=== PATIENT | male | born 1970 | race Two or more races ===

== ENCOUNTER 2024-08-17 20:26 | Emergency (ER) | payer MEDICAID, OTHER ==
[~2024-08-17] VITALS: Ht 177.8 cm; Wt 147.1 kg
[2024-08-17 20:40] VITALS: BP 127/89; PULSE 72; RESP 14; O2SAT 98
--- NOTE | 2024-08-17 22:02 | ED.PDOC ---
HPI (NEURO) HPI Comments Pt arrived in ER due to head pressure x 3 days. Pt alert and oriented x 4/ Denies pain, N/V, or dizziness. pt states its " just pressure that wont go away" VSS. No distress present. Denies numbness, weakness, slurred speech, vision changes, worst headache of his life, or head injury. Chief Complaint: Headache Time Seen by MD: 20:54 Reviewed Notes: Nurses Notes, Medications, Allergies Information Source: Patient Mode of Arrival: Ambulatory Past Medical History PAST MEDICAL HISTORY: Denies Surgical History: Denies all surgeries Family History Family History: Reviewed,noncontributory to illness Social History Smoker: Non-Smoker Alcohol: Denies ETOH Use Drugs: Denies Drug Use Neurological: reports: headache Physical Exam Musculoskeletal : Apperance: Normal Lymphatic: No Adenopathy Was a procedure done? Was a procedure done?: No X-Ray, Labs, Meds, VS Vital Signs Date Time Temp Pulse Resp B/P (MAP) Pulse Ox O2 Delivery O2 Flow Rate FiO2 08/17/24 20:40 98.8 72 14 127/89 (102) 98 X-Ray, Labs, Meds, VS Comment LEFT WITHOUT BEING TRIAGED Departure 1 Departure Disposition: 07 LEFT WITHOUT BEING TRIAGED Condition: Stable Discharged With: Self I personally scribed for ER ([email or web address]) on 08/18/24 at 03:53. Electronically submitted by Harley Cleveland ([facility]). MAURA URBAN [employer]ER Aug 17, 2024 22:01 ER Aug 18, 2024 03:53
== END 2024-08-17 22:24 | disposition left against medical advice (07) ==
LOC: ER 20:26
DX: R51.9 Headache, unspecified (principal); Z53.21 Procedure and treatment not carried out due to patient leaving prior to being seen by health care provider

== ENCOUNTER 2024-08-19 11:15 | Inpatient (IN) | payer MEDICAID ==
[~2024-08-19] VITALS: Ht 177.8 cm; Wt 149.6 kg
--- NOTE | 2024-08-19 11:34 | ED.PDOC ---
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 Medications: No medications. Allergies: NKDA HPI: HPI: Poor Historian. 54-year-old male presents to emergency depart for evaluation of episodes of shortness of breath that wakes him up from his sleep in the last few days. He wakes up gasping for air. Patient has been using alcohol heavily the last six months most recently this morning. Patient does not go to the doctor. Denies any other acute symptoms. REVIEW OF SYSTEMS: CONSTITUTIONAL: Denies acute: fever, diaphoresis, chills, HEAD: Denies acute: headache, photophobia Eyes: Denies acute: Double vision, vision loss, eye pain, eye discharge. EARS: Denies acute: tinnitus, hearing loss, ear discharge, ear pain, THROAT: Denies acute: sore throat, swelling, difficulty swallowing , pain with swallowing, change in voice. NECK: Denies acute: neck pain, neck swelling, stiff neck. HEART: Denies acute : chest pain, palpitations, LUNGS: Denies acute: wheezing, cough, hemoptysis ABDOMEN: Denies acute: abdominal pain, Nausea, Vomiting, diarrhea, melena , hematemesis, hematochezia SKIN: Denies acute: rash, redness, lesions, itchiness. EXTREMITIES: Denies acute: calf pain, numbness, tingling, weakness, denies pain in extremity. Denies acute: Low back pain. Neuro: Denies acute: focal neurological deficit, motor or sensory focal neurological deficit, tremors, seizure like activity, confusion, dizziness, change in mental status, loss of bowel or bladder function, cauda equina like symptoms. : Denies acute: dysuria, hematuria, flank pain, increase in urinary frequency. PSYCH: Denies acute: hallucination, suicidal ideation, homicidal ideation. PHYSICAL EXAM: General: no acute distress, awake and alert. Head: normocephalic, atraumatic. Neck: supple, trachea is midline, no swelling. Throat: Normal phonation. Eyes:, no erythema, no purulent discharge, no proptosis, no icterus. Heart: regular rate, regular rhythm, no significant murmur appreciated. Lungs: no apparent respiratory distress, Able to speak in full sentences. No wheezing, no rhonchi, no crackles. No stridors Clear to auscultation bilaterally. Abdomen: non tender to palpation, non distended, soft, no guarding, no rebound, + bowel sounds. Obese Neuro: Awake, Alert, oriented to name, self, situation, follows commands GCS=15. Speech is normal. Skin: no petechia, no purpura, no cyanosis, non-pale, not jaundice. Lower extremities: --2/4 bilateral - Pitting edema no deformity, no focal swelling, no calf TTP. Makes eye contact. moves all four extremities. Face: no apparent facial droop. Ambulating in the ED independently. ED COURSE: Chief Complaint: Shortness of Breath Time Seen by MD: 11:31 Reviewed notes: Medications, Allergies Information Source: Patient Mode of Arrival: Ambulatory Was a procedure done? Was a procedure done?: No Differential Dx Differential Diagnosis: Other (DDx include ACS, unstable angina, anxiety, PE, pneumothroax, neoplasm, cardiac ischemia, COPD, asthma, CHF, pleural effusion, tobacco abuse, pneumonia, hypoxia, hypercapnia, anemia., infection/sepsis., pulmonary edema. Asthma, Cardiac tamponade, infection.) X-Ray, Labs, Meds, VS Vital Signs Date Time Temp Pulse Resp B/P (MAP) Pulse Ox O2 Delivery O2 Flow Rate FiO2 08/19/24 12:07 Room Air* 0 21 08/19/24 11:34 18 96 Room Air* 0 21 08/19/24 11:33 61 08/19/24 11:30 98.3 61 18 139/68 (91) 96 Lab Test 08/19/24 14:32 08/19/24 14:30 08/19/24 12:46 08/19/24 11:44 Range/Units Lactic Acid Level 2.3 *H 2.3 *H 0.4-2.0 mmol/L Troponin I High Sensitivity 4 5 5 </=54 ng/L Blood Gas Specimen Type Arterial Blood Gas Sample Site Right radial Blood Gas Patient Temperature 37.0 Arterial Blood Date Drawn [id number] Arterial Blood pH 7.473 H 7.350-7.450 Arterial Blood Partial Pressure CO2 40.9 35.0-48.0 mmHg Arterial Blood Partial Pressure O2 62.1 L 83.0-108.0 mmHg Arterial Blood HCO3 29.3 H 21.0-28.0 mmol/L Arterial Blood Oxygen Saturation 91.9 L 94.0-98.0 % Arterial Blood Base Excess 5.2 H -2.0-3.0 mmol/L Arterial Blood Oxyhemoglobin 90.5 L 94.0-98.0 % Arterial Blood Carboxyhemoglobin 1.1 0.5-1.5 % Arterial Blood Methemoglobin 0.4 0.0-1.5 % Justin Test Yes Blood Gas Total Hemoglobin 15.80 13.5-17.5 g/dL Blood Gas Modality Room air FiO2 % 21.0 White Blood Count 8.0 4.4-10.8 10^3/uL Red Blood Count 4.84 4.5-5.90 10^6/uL Hemoglobin 14.9 13.5-17.5 g/dL Hematocrit 43.7 41.0-53.0 % Mean Corpuscular Volume 90.1 80.0-100.0 fL Mean Corpuscular Hemoglobin 30.8 28.0-32.0 pg Mean Corpuscular Hemoglobin Concent 34.2 32.0-36.0 g/dL Red Cell Distribution Width 12.8 11.8-14.3 % Platelet Count 296 140-450 10^3/uL Mean Platelet Volume 7.5 6.9-10.8 fL Neutrophils (%) (Auto) 70.8 37.0-80.0 % Lymphocytes (%) (Auto) 21.6 10.0-50.0 % Monocytes (%) (Auto) 6.5 0.0-12.0 % Eosinophils (%) (Auto) 0.4 0.0-7.0 % Basophils (%) (Auto) 0.7 0.0-2.0 % Neutrophils # (Auto) 5.7 1.6-8.6 10 ^3/uL Lymphocytes # (Auto) 1.7 0.4-5.4 10 ^3/uL Monocytes # (Auto) 0.5 0-1.3 10 ^3/uL Eosinophils # (Auto) 0 0-0.8 10 ^3/uL Basophils # (Auto) 0.1 0-0.2 10 ^3/uL Nucleated Red Blood Cells 0.2 % D-Dimer, Quantitative 1.18 H 0.0-0.49 mg/L FEU Sodium Level 139 136-145 mmol/L Potassium Level 3.9 3.5-5.1 mmol/L Chloride Level 103 98-107 mmol/L Carbon Dioxide Level 28 20-31 mmol/L Anion Gap 8 5-15 Blood Urea Nitrogen < 5 L 9-23 mg/dL Creatinine 0.84 0.700-1.30 mg/dL Glomerular Filtration Rate Calc 102 >90 mL/min BUN/Creatinine Ratio 6.0 L 10.0-20.0 Serum Glucose 100 74-106 mg/dL Calcium Level 9.7 8.7-10.4 mg/dL Magnesium Level 1.9 1.6-2.6 mg/dL Total Bilirubin 0.8 0.2-1.0 mg/dL Aspartate Amino Transferase (AST) 34 13-40 U/L Alanine Aminotransferase (ALT) 26 7-40 U/L Alkaline Phosphatase 83 46-116 U/L B-Type Natriuretic Peptide 113.51 0-100 pg/mL Total Protein 7.7 5.7-8.2 g/dL Albumin 4.5 3.2-4.8 g/dL Plasma/Serum Blood Alcohol 71.0 H <10 mg/dL Current Medications Medications (Trade) Dose Ordered Sig/Johnnie Route Start Time Stop Time Status Last Admin Thiamine HCl 100 mg ONCE ONCE PO 08/19/24 11:45 08/19/24 11:46 DC 08/19/24 12:00 Sodium Chloride 1,000 ml @ 1,000 mls/hr Q1H ONCE IV 08/19/24 13:15 08/19/24 14:14 DC 08/19/24 13:15 Chest XR: [address] [address] Ph: [phone] DIAGNOSTIC IMAGING Diagnostic Imaging Report : [id number] Signed PATIENT: RAMIRO MITCHELL ACCT: [id number] UNIT: [id number] : 1970 LOC: ER ROOM / BED: / AGE / SEX: 54 / M ADM STATUS: REG ER SERVICE 1131 ORDERING PHYSICIAN: JANIA CURRY DO PROCEDURE(s): CXRP - CHEST PORTABLE REASON: sob ORDER NUMBER(s): [id number], ACCESSION NUMBER(s): [id number] EXAM: XR Chest, 1 View CLINICAL INDICATION: sob TECHNIQUE: Frontal view of the chest. COMPARISON: None FINDINGS: LUNGS AND PLEURAL SPACES: Unremarkable. No consolidation. No pneumothorax. HEART: Unremarkable. No cardiomegaly. MEDIASTINUM: Unremarkable. Normal mediastinal contour. BONES/JOINTS: Unremarkable. No acute fracture. OTHER FINDINGS: . None. IMPRESSION: No acute cardiopulmonary process. ATED BY: FAY GUTHRIE MD DICTATED DATE/TIME: 08/19/241220 SIGNED BY: FAY GUTHRIE MD SIGNED DATE/TIME: 08/19/241220 CC: [place] [id number] Ph: [phone] DIAGNOSTIC IMAGING Diagnostic Imaging Report : [id number] Signed PATIENT: AVANI HAM ACCT: [id number] UNIT: [id number] : 10/27/1962 LOC: ER ROOM / BED: / AGE / SEX: 61 / F ADM STATUS: REG ER SERVICE 1450 ORDERING PHYSICIAN: JANIA CURRY DO PROCEDURE(s): [place] - ANGIO HEAD/Neck REASON: MCDONNELL ORDER NUMBER(s): [id number], ACCESSION NUMBER(s): [id number] Exam: CT ANGIO HEAD/NECK INDICATION: MCDONNELL EXAM DATE: 08/19/2024 04:07 PM COMPARISON: None TECHNIQUE: CT head without contrast. CTA head, neckwith intravenous contrast. 3D image postprocessing was performed on a dedicated workstation and images were used for interpretation and reporting. RADIATION DOSE: Tracker: CTDIvol: 29.58 mGy, DLP: 1293.61 mGy*cm Angio: CTDIvol: 29.58 mGy, DLP: 1293.61 mGy*cm FINDINGS: No intracranial hemorrhage. No extra-axial fluid, mass, mass effect or midline shift. Ventricles are midline and normal in size. Balderrama-white differentiation maintained. Mastoids well pneumatized. Paranasal sinuses well pneumatized. The right common carotid artery demonstrates no high-grade stenosis. Right internal carotid artery demonstrates no high-grade stenosis. Right middle cerebral artery demonstrates no high-grade stenosis. The left common carotid artery demonstrates no high-grade stenosis. The left internal carotid artery demonstrates no high-grade stenosis. Left middle cerebral artery demonstrates no high-grade stenosis. The bilateral anterior cerebral arteries demonstrate no high-grade stenoses. Right vertebral artery demonstrates no high-grade stenosis. Basilar artery demonstrates no high-grade stenosis. Bilateral posterior cerebral arteries demonstrate no high-grade stenoses. Left vertebral artery demo nstrates no high-grade stenosis. 8 mm left upper lobe pulmonary nodule. IMPRESSION: 1. No evidence of hemodynamically significant cervical stenosis . 2. No intracranial hemorrhage. 3. 8 mm left upper lobe pulmonary nodule. Recommend follow-up per Fleischner society criteria.. ATED BY: LUIS FERNANDO BARKLEY MD DICTATED DATE/TIME: 08/19/24 1639 SIGNED BY: LUIS FERNANDO BARKLEY MD SIGNED DATE/TIME: 08/19/24 163 CC: Time of 1ST Reevaluation: 12:31 Reevaluation 1ST: Unchanged Patient Education/Counseling: Diagnosis, Treatment Family Education/Counseling: No Family Present Comments Patient presented with the above HPI.---dyspnea---workup was initiated. patient was found with the above mentioned diagnosis. the following medications were ordered: please refer to order lists of meds and tests obtained by myself Dr. Curry. Patient ED course and VS have been stabilized. Patient has been reassessed in the ED and remained in a stable condition. Pertinent incidental findings were discussed with the patient and/or family. Patient/family voices understanding and is agreeable with plan. Patient has been observed in the ED adequate length of time to insure improvement/stability. Escalation of care considered: Consideration of escalation to observation or admission Patient was ADMITTED to the medicine team for further evaluation and treatment of their presentation. All the reports of any imaging studies that were ordered by myself were reviewed by myself. Departure 1 Departure Time of Disposition: 15:18 Impression: Primary Impression: Dyspnea Additional Impressions: Hypoxemia Alcohol abuse Pulmonary nodule Mediastinal lymphadenopathy Disposition: ADMITTED INPATIENT Admit to: Tele Condition: Guarded Discharged With: Self Critical Care Note Critical Care Time?: No Heart Score Heart Score: Heart Score Response (Comments) Value History N/A 0 EKG N/A 0 Age N/A 0 Risk Factors N/A 0 Troponin N/A 0 Total 0 I personally scribed for JANIA CURRY DO ([email or web address]) on 08/19/24 at 11:34. Electronically submitted by Kee Bruce ([email or web address]). I personally scribed for JANIA CURRY DO ([email or web address]) on 08/19/24 at 12:30. Electronically submitted by Kee Bruce ([email or web address]). I personally scribed for JANIA CURRY DO ([email or web address]) on 08/19/24 at 13:39. Electronically submitted by Kee Bruce ([email or web address]). I personally scribed for JANIA CURRY DO ([email or web address]) on 08/19/24 at 16:50. Electronically submitted by Kee Bruce ([email or web address]). JANIA CURRY DO Aug 19, 2024 11:34
[2024-08-19] MEDS: THIAMINE HCL 100 MG TAB PO ONE (12:00)
[2024-08-19 12:22] LABS: Basophils # (auto) 0.1 10 ^3/uL (0-0.2); Basophils % (auto) 0.7 % (0.0-2.0); Eosinophils # (auto) 0 10 ^3/uL (0-0.8); Eosinophils % (auto) 0.4 % (0.0-7.0); Hematocrit 43.7 % (41.0-53.0); Hemoglobin 14.9 g/dL (13.5-17.5); Lymphocytes # (auto) 1.7 10 ^3/uL (0.4-5.4); Lymphocytes % (auto) 21.6 % (10.0-50.0); Mean Corpuscular Hemoglobin 30.8 pg (28.0-32.0); Mean Corpuscular Hgb Conc. 34.2 g/dL (32.0-36.0); Mean Corpuscular Volume 90.1 fL (80.0-100.0); Monocytes # (auto) 0.5 10 ^3/uL (0-1.3); Monocytes % (auto) 6.5 % (0.0-12.0); Neutrophils # (auto) 5.7 10 ^3/uL (1.6-8.6); Neutrophils % (auto) 70.8 % (37.0-80.0); Nucleated Red Blood Cells % 0.2 %; Platelet Count (auto) 296 10^3/uL (140-450); Red Blood Cells 4.84 10^6/uL (4.5-5.90); Red Cell Distribution Width 12.8 % (11.8-14.3)
--- NOTE | 2024-08-19 12:24 | DVH ---
EXAM: XR Chest, 1 View CLINICAL INDICATION: sob TECHNIQUE: Frontal view of the chest. COMPARISON: None FINDINGS: LUNGS AND PLEURAL SPACES: Unremarkable. No consolidation. No pneumothorax. HEART: Unremarkable. No cardiomegaly. MEDIASTINUM: Unremarkable. Normal mediastinal contour. BONES/JOINTS: Unremarkable. No acute fracture. OTHER FINDINGS: . None. IMPRESSION: No acute cardiopulmonary process.
[2024-08-19 12:48] LABS: Alanine Aminotransferase 26 U/L (7-40); Albumin 4.5 g/dL (3.2-4.8); Alkaline Phosphatase 83 U/L (46-116); Anion Gap 8 (5-15); Aspartate Aminotransferase 34 U/L (13-40); Calcium 9.7 mg/dL (8.7-10.4); Carbon Dioxide 28 mmol/L (20-31); Chloride 103 mmol/L (98-107); Glucose 100 mg/dL (74-106); Magnesium 1.9 mg/dL (1.6-2.6); Potassium 3.9 mmol/L (3.5-5.1); Sodium 139 mmol/L (136-145)
[2024-08-19 12:49] LABS: Bilirubin, Total 0.8 mg/dL (0.2-1.0); Blood Urea Nitrogen < 5 mg/dL (9-23); Total Protein 7.7 g/dL (5.7-8.2)
[2024-08-19 13:00] LABS: Lactic Acid w/Reflex 2.3 mmol/L (0.4-2.0)
[2024-08-19] MEDS: SODIUM CHLORIDE 0.9% 1,000 ML IV ONE ×2 (13:15→17:00)
[2024-08-19 14:33] LABS: Base Excess 5.2 mmol/L (-2.0-3.0)
[2024-08-19] MEDS: IOHEXOL 350 MG/ML 100ML IJ ONE (15:31)
--- NOTE | 2024-08-19 16:23 | DVH ---
Indication: sob, elevated D dimer Technique: CT axial images of the chest are obtained with intravenous contrast per CT angiogram prot ocol. Coronal and sagittal reformats were obtained. Radiation Dose Information: CTDI volume is 29.2 mGy. Dose-length product is 1060.67 mGy*cm Comparison: None FINDINGS: No filling defect within the main left right pulmonary arteries. Segmental and subsegmental branches are suboptimally characterize. Trachea patent. No pneumothorax. Right upper lobe pulmonary soft tissue nodule measuring 1.7 cm. 5 mm right upper lobe calcified nodul e. Bilateral pulmonary ground-glass opacities. Heart normal in size. Right hilar lymph node measuring 1.9 cm. Subcarinal lymph node measuring 1.5 cm . No supraclavicular or axillary lymphadenopathy. No aggressive osseous process. [id number] thoracic degenerative disc disease. 1 cm right adrenal nodule, Hounsfield units of 21 IMPRESSION: 1. No evidence for large pulmonary embolism. 2. Right upper lobe pulmonary nodule measuring 1.7 cm. Recommend follow-up per fleischner society cr iteria. 3. Mediastinal/hilar lymphadenopathy. 4. Pulmonary ground-glass opacities/ attenuation which could be secondary to edema, hypoventilation, infection, inflammatory etiologies. 5. Indeterminate right adrenal nodule which can be further characterized with MRI abdomen, adrenal ma ss protocol in the nonemergent setting. 6. Other findings as described.
[2024-08-19] MEDS ORDERED: IBUP-1455 PO (16:59)
[2024-08-19] MEDS ORDERED: TIZA4CAP14 PO (16:59)
[2024-08-19] MEDS ORDERED: ACETAMINOPHEN 325 MG TAB PO PRN (17:00)
[2024-08-19] MEDS ORDERED: TIZANIDINE HYDROCHLORIDE 4 MG PO PRN (17:00)
--- NOTE | 2024-08-19 17:14 | DVHHP2 ---
History of Present Illness Reason for Visit: Shortness of breaths rule out PE History of Present Illness This is a 54-year-old male with history of giantism who presents to ED with chief complaint of shortness of breath at with no associated symptoms times 3-4 days ago. Upon evaluation, patient denied recent injury or trauma to his chest. He did comment of having similar symptoms in the past. He admits to heavy alcohol drinking vodka daily, last drink this morning. The patient is not short of breath at this moment and is not on oxygen. He is concerned about his shortness of breath and would like to be further evaluated and treated. The patient will be admitted under hospitalist care to the medical-surgical unit. The patient denies fever, chills, headache, dizziness, palpitation, chest pain, nausea, vomiting, abdominal pain, diarrhea, constipation and other associated symptoms. The plan has been discussed with the patient in which all questions concerns have been addressed. Past Medical History Gigantism Past Surgical History Craniotomy Left leg surgery Family History: None Smoke: No ALCOHOL: none Drugs: None Lives: with Family Domestic Violence: Neg Review of Systems Respiratory: Shortness of breath Allergies: Coded Allergies: NO KNOWN ALLERGIES (Unverified , 08/17/24) Medications Current Medications Medications Dose Ordered Sig/Johnnie Route Start Time Stop Time Status Last Admin Dose Admin Albuterol 2.5 mg Q2HPRN PRN NEB 08/19/24 17:00 UNV Sodium Chloride 1,000 ml @ 60 mls/hr [id number] IV 08/19/24 17:00 UNV Enoxaparin Sodium 40 mg DAILY SC 08/20/24 10:00 UNV Acetaminophen 650 mg Q6HP PRN PO 08/19/24 17:00 UNV Lorazepam 1 mg Q2HPRN PRN IV 08/19/24 17:00 UNV Exam Vital Signs Vital Signs Date Time Temp Pulse Resp B/P (MAP) Pulse Ox O2 Delivery O2 Flow Rate FiO2 08/19/24 12:07 Room Air* 0 21 08/19/24 11:34 18 96 08/19/24 11:33 61 08/19/24 11:30 98.3 139/68 (91) General Appearance: Alert, Oriented X3, Cooperative, No acute distress HEENT: Atraumatic, PERRLA, Mucous membr. moist/pink Respiratory: Clear to auscultation, Normal air movement Cardiovascular: Normal S1, Normal S2, No murmurs Abdominal: Normal bowel sounds, Soft, No tenderness, No hepatospenomegaly, No masses Extremities: No clubbing, No cyanosis, No edema, Normal pulses, No tenderness/swelling Skin: No rashes, No breakdown Neuro: Normal gait, Normal speech, Strength at 5/5 X4 ext, Normal tone, Sensation intact, Cranial nerves 3-12 NL, Reflexes 2+ Psych/Mental Status: Mental status NL Labs/Xrays Labs Test 08/19/24 14:32 08/19/24 14:30 08/19/24 11:44 Range/Units Lactic Acid Level 2.3 *H 0.4-2.0 mmol/L Troponin I High Sensitivity 4 </=54 ng/L Blood Gas Specimen Type Arterial Blood Gas Sample Site Right radial Blood Gas Patient Temperature 37.0 Arterial Blood Date Drawn [id number] Arterial Blood pH 7.473 H 7.350-7.450 Arterial Blood Partial Pressure CO2 40.9 35.0-48.0 mmHg Arterial Blood Partial Pressure O2 62.1 L 83.0-108.0 mmHg Arterial Blood HCO3 29.3 H 21.0-28.0 mmol/L Arterial Blood Oxygen Saturation 91.9 L 94.0-98.0 % Arterial Blood Base Excess 5.2 H -2.0-3.0 mmol/L Arterial Blood Oxyhemoglobin 90.5 L 94.0-98.0 % Arterial Blood Carboxyhemoglobin 1.1 0.5-1.5 % Arterial Blood Methemoglobin 0.4 0.0-1.5 % Justin Test Yes Blood Gas Total Hemoglobin 15.80 13.5-17.5 g/dL Blood Gas Modality Room air FiO2 % 21.0 White Blood Count 8.0 4.4-10.8 10^3/uL Red Blood Count 4.84 4.5-5.90 10^6/uL Hemoglobin 14.9 13.5-17.5 g/dL Hematocrit 43.7 41.0-53.0 % Mean Corpuscular Volume 90.1 80.0-100.0 fL Mean Corpuscular Hemoglobin 30.8 28.0-32.0 pg Mean Corpuscular Hemoglobin Concent 34.2 32.0-36.0 g/dL Red Cell Distribution Width 12.8 11.8-14.3 % Platelet Count 296 140-450 10^3/uL Mean Platelet Volume 7.5 6.9-10.8 fL Neutrophils (%) (Auto) 70.8 37.0-80.0 % Lymphocytes (%) (Auto) 21.6 10.0-50.0 % Monocytes (%) (Auto) 6.5 0.0-12.0 % Eosinophils (%) (Auto) 0.4 0.0-7.0 % Basophils (%) (Auto) 0.7 0.0-2.0 % Neutrophils # (Auto) 5.7 1.6-8.6 10 ^3/uL Lymphocytes # (Auto) 1.7 0.4-5.4 10 ^3/uL Monocytes # (Auto) 0.5 0-1.3 10 ^3/uL Eosinophils # (Auto) 0 0-0.8 10 ^3/uL Basophils # (Auto) 0.1 0-0.2 10 ^3/uL Nucleated Red Blood Cells 0.2 % D-Dimer, Quantitative 1.18 H 0.0-0.49 mg/L FEU Sodium Level 139 136-145 mmol/L Potassium Level 3.9 3.5-5.1 mmol/L Chloride Level 103 98-107 mmol/L Carbon Dioxide Level 28 20-31 mmol/L Anion Gap 8 5-15 Blood Urea Nitrogen < 5 L 9-23 mg/dL Creatinine 0.84 0.700-1.30 mg/dL Glomerular Filtration Rate Calc 102 >90 mL/min BUN/Creatinine Ratio 6.0 L 10.0-20.0 Serum Glucose 100 74-106 mg/dL Calcium Level 9.7 8.7-10.4 mg/dL Magnesium Level 1.9 1.6-2.6 mg/dL Total Bilirubin 0.8 0.2-1.0 mg/dL Aspartate Amino Transferase (AST) 34 13-40 U/L Alanine Aminotransferase (ALT) 26 7-40 U/L Alkaline Phosphatase 83 46-116 U/L B-Type Natriuretic Peptide 113.51 0-100 pg/mL Total Protein 7.7 5.7-8.2 g/dL Albumin 4.5 3.2-4.8 g/dL Plasma/Serum Blood Alcohol 71.0 H <10 mg/dL ORDERING PHYSICIAN: JANIA CURRY DO PROCEDURE(s): CTACH - CT ANGIO CHEST CONTRAST REASON: sob, elevated D dimer ORDER NUMBER(s): [id number], ACCESSION NUMBER(s): [id number] Indication: sob, elevated D dimer Technique: CT axial images of the chest are obtained with intravenous contrast per CT angiogram protocol. Coronal and sagittal reformats were obtained. Radiation Dose Information: CTDI volume is 29.2 mGy. Dose-length product is 1060.67 mGy*cm Comparison: None FINDINGS: No filling defect within the main left right pulmonary arteries. Segmental and subsegmental branches are suboptimally characterize. Trachea patent. No pneumothorax. Right upper lobe pulmonary soft tissue nodule measuring 1.7 cm. 5 mm right upper lobe calcified nodule. Bilateral pulmonary ground-glass opacities. Heart normal in size. Right hilar lymph node measuring 1.9 cm. Subcarinal lymph node measuring 1.5 cm. No supraclavicular or axillary lymphadenopathy. No aggressive osseous process. [id number] thoracic degenerative disc disease. 1 cm right adrenal nodule, Hounsfield units of 21 IMPRESSION: 1. No evidence for large pulmonary embolism. 2. Right upper lobe pulmonary nodule measuring 1.7 cm. Recommend follow-up per fleischner society criteria. 3. Mediastinal/hilar lymphadenopathy. 4. Pulmonary ground-glass opacities/ attenuation which could be secondary to edema, hypoventilation, infection, inflammatory etiologies. 5. Indeterminate right adrenal nodule which can be further characterized with MRI abdomen, adrenal mass protocol in the nonemergent setting. 6. Other findings as described. ATED BY: LUIS FERNANDO BARKLEY MD DICTATED DATE/TIME: 08/19/24 162 SIGNED BY: LUIS FERNANDO BARKLEY MD SIGNED DATE/TIME: 08/19/24 162 CC: ORDERING PHYSICIAN: JANIA CURRY DO PROCEDURE(s): CXRP - CHEST PORTABLE REASON: sob ORDER NUMBER(s): [id number], ACCESSION NUMBER(s): [id number] EXAM: XR Chest, 1 View CLINICAL INDICATION: sob TECHNIQUE: Frontal view of the chest. COMPARISON: None FINDINGS: LUNGS AND PLEURAL SPACES: Unremarkable. No consolidation. No pneumothorax. HEART: Unremarkable. No cardiomegaly. MEDIASTINUM: Unremarkable. Normal mediastinal contour. BONES/JOINTS: Unremarkable. No acute fracture. OTHER FINDINGS: . None. IMPRESSION: No acute cardiopulmonary process. ATED BY: FAY GUTHRIE MD DICTATED DATE/TIME: 08/19/241220 SIGNED BY: FAY GUTHRIE MD SIGNED DATE/TIME: 08/19/241220 CC: Assessment/Plan Assessment/Plan Shortness of breaths rule out PE---patient with chief complaint of shortness of breaths with no associated symptoms times 3-4 days No recent injury or trauma to chest Heavy alcohol drink vodka daily Currently denies shortness of breaths and no O2 Admit to medical-surgical unit Reviewed CBC which is normal Cardiac enzyme negative x3 Alcohol level 71.0 Lactic acid 2.3 D-dimer elevated CT chest pending Start Lovenox now Albuterol q.2h p.r.n. shortness of breath IV hydration Alcohol intoxication Thiamine p.o. given in the ER IV banana bag now 2 L normal saline now CIWA protocol Ativan as needed ? DVT Order bilateral lower extremity ultrasound pending Reconcile home meds DVT prophylaxis PUD prophylaxis not indicated no history of GERD Discussed plan of care with the patient in which all questions concerns have been addressed Plan discussed with: Patient My Orders Orders - BASIL METCALF [employer] Procedure Category Date Status Time Communication Order ORDERS 08/19/24 Transmitted 16:55 Albuterol Medneb PHA 08/19/24 Logged (Ventolin Medneb) 17:00 Admit ADMIT 08/19/24 Transmitted 16:55 2 Gm Sodium Diet DIET 08/19/24 Transmitted Dinner Sodium Chloride 0.9% PHA 08/19/24 Logged 17:00 Enoxaparin Sodium PHA 08/20/24 Logged (Lovenox) 10:00 Complete Blood Count LAB 08/20/24 Verified 04:00 Comprehensive LAB 08/20/24 Verified Metabolic Panel 04:00 Condition: Fair FRANCIA 08/19/24 In Process 16:55 Acetaminophen Tablet PHA 08/19/24 Logged (Tylenol Tablet) 17:00 Bedrest With Bathroom FRANCIA 08/19/24 In Process Privileg 16:55 Bilat Lower Dvt US 08/19/24 Logged 16:55 Sodium Chloride 0.9% PHA 08/19/24 Logged 17:00 Lorazepam 2mg/Ml Inj PHA 08/19/24 Logged (Ativan Inj) 17:00 Etoh Withdrawal FRANCIA 08/19/24 In Process Assessment 16:58 Etoh Withdrawal FRANCIA 08/19/24 In Process Assessment 16:58 Lactic Acid W/ Reflex LAB 08/19/24 Logged Order 20:00 (Nf) Tizanidine Hcl PHA 08/19/24 Verified (Tizanidine Hydrochl 17:00 Date of Service: Aug 19, 2024 Billing Provider: BASIL METCALF Common Visit Codes: [id number] INP/OBS CARE (HIGH) BASIL METCALF Aug 19, 2024 17:14
[2024-08-19 17:52] VITALS: BP 139/68; PULSE 61; RESP 18; O2SAT 96
--- NOTE | 2024-08-19 18:11 | DVH ---
Bilateral lower extremity venous duplex Clinical History: r/o dvt Comparison: None Technique: Duplex Doppler evaluation of the deep venous systems of both lower extremities from the common femora l veins to the popliteal veins including color Doppler and spectral/pulsed waveform analysis was perf ormed. Findings: RIGHT SIDE: The common femoral vein demonstrates appropriate compressibility and waveform variability. There is compressibility/patency of the great saphenous vein at the proximal thigh. The femoral vein demonstrates appropriate compressibility and waveform variability. The deep femoral vein demonstrates appropriate compressibility and waveform variability. The popliteal vein demonstrates appropriate compressibility and waveform variability. There is normal compressibility at the tibioperoneal trunk. LEFT SIDE: The common femoral vein demonstrates appropriate compressibility and waveform variability. There is compressibility/patency of the great saphenous vein at the proximal thigh. The femoral vein demonstrates appropriate compressibility and waveform variability. The deep femoral vein demonstrates appropriate compressibility and waveform variability. The popliteal vein demonstrates appropriate compressibility and waveform variability. There is normal compressibility at the tibioperoneal trunk. Impression: No right or left femoropopliteal venous thrombosis.
[2024-08-19 18:23] VITALS: PULSE 73; RESP 18; O2SAT 96
[2024-08-19] MEDS: ALBUTEROL SULF 2.5 MG/0.5ML(0.5%) NEB SOLN NEB PRN (18:26)
[2024-08-19 18:32] VITALS: PULSE 71; RESP 18; O2SAT 100
[2024-08-19] MEDS: SODIUM CHLORIDE 0.9% 1,000 ML IV SCH (19:55)
[2024-08-19 22:16] VITALS: BP 116/79; PULSE 57; RESP 18; TEMP 98.4; O2SAT 94
[2024-08-20] VITALS (10 sets, daily range): BP systolic 127–147; BP diastolic 77–99; PULSE 62–78; RESP 17–22; TEMP 98–98.6; O2SAT 92–99
[2024-08-20 02:17] LABS: Urine Bacteria None Seen /hpf (None Seen)
[2024-08-20 02:43] LABS: Urine Blood Negative /uL (Negative); Urine Clarity Clear (Clear); Urine Color Light-Yellow (Yellow); Urine Protein, UAD Negative (Negative); Urine Specific Gravity 1.019 (1.001-1.035); Urine Squamous Epithelial Cell None Seen /hpf (<5); Urine Urobilinogen 3 mg/dL (Negative); Urine WBC < 1 /HPF (0-3)
[2024-08-20 05:53] LABS: Basophils # (auto) 0.1 10 ^3/uL (0-0.2); Basophils % (auto) 0.7 % (0.0-2.0); Eosinophils # (auto) 0.1 10 ^3/uL (0-0.8); Eosinophils % (auto) 1.8 % (0.0-7.0); Hematocrit 42.3 % (41.0-53.0); Hemoglobin 14.4 g/dL (13.5-17.5); Lymphocytes # (auto) 1.7 10 ^3/uL (0.4-5.4); Lymphocytes % (auto) 25.9 % (10.0-50.0); Mean Corpuscular Hemoglobin 31.3 pg (28.0-32.0); Mean Corpuscular Hgb Conc. 34.1 g/dL (32.0-36.0); Mean Corpuscular Volume 91.9 fL (80.0-100.0); Monocytes # (auto) 0.4 10 ^3/uL (0-1.3); Monocytes % (auto) 5.7 % (0.0-12.0); Neutrophils # (auto) 4.4 10 ^3/uL (1.6-8.6); Neutrophils % (auto) 65.9 % (37.0-80.0); Nucleated Red Blood Cells % 0.1 %; Platelet Count (auto) 257 10^3/uL (140-450); Red Cell Distribution Width 13.1 % (11.8-14.3); White Blood Cell 6.7 10^3/uL (4.4-10.8)
[2024-08-20 06:06] LABS: Alanine Aminotransferase 23 U/L (7-40); Albumin 4.2 g/dL (3.2-4.8); Alkaline Phosphatase 73 U/L (46-116); Anion Gap 8 (5-15); Aspartate Aminotransferase 29 U/L (13-40); BUN/Creatinine Ratio 7.9 (10.0-20.0); Bilirubin, Total 1.1 mg/dL (0.2-1.0); Calcium 9.9 mg/dL (8.7-10.4); Carbon Dioxide 29 mmol/L (20-31); Chloride 104 mmol/L (98-107); Glucose 103 mg/dL (74-106); Potassium 4.7 mmol/L (3.5-5.1); Sodium 141 mmol/L (136-145)
[2024-08-20 06:09] LABS: Blood Urea Nitrogen 6 mg/dL (9-23)
[2024-08-20] MEDS: ENOXAPARIN SOD 40 MG/0.4 ML SYRINGE SC SCH (09:28)
[2024-08-20] MEDS: LORazepam 2MG/ML-1ML VIAL IV PRN (09:39)
--- NOTE | 2024-08-20 16:48 | ECG ---
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
[2024-08-20] MEDS: chlordiazePOXIDE HCL 5 MG CAP PO PRN (18:41)
--- NOTE | 2024-08-20 18:45 | DVHINCON2 ---
Date of service: Aug 20, [address] Young Reason for Consultation Hypoxia and pulmonary nodule History of Present Illness A 54-year-old man with past medical history of gigantism who presented to ED on 08/19/24 with chief complaint of shortness of breath x3-4 days. Upon evaluation, patient denied recent injury or trauma to his chest. He did admit to having similar symptoms in the past. Pt admitted to heavy alcohol use - drinking vodka daily, last drink morning of presentation. He denied fever, chills, headache, dizziness, palpitation, chest pain, N/V/D or other associated symptoms. Patient was admitted for further care and pulmonary consultation is requested for evaluation and management d/t hypoxia and pulmonary nodule Review of Systems: 14-point review of systems negative unless otherwise noted above. Past Medical History: Gigantism Past Surgical History: Craniotomy, left leg surgery Medications: Reviewed. Allergies: No known drug allergies. Family History: No family history of premature CAD. No family history of lung disorders. Social History: Nonsmoker. No alcohol or illicit drug use. Family History: Patient reports no known family medical history. Allergies: Coded Allergies: NO KNOWN ALLERGIES (Unverified , 08/17/24) Home Meds Reported Medications Tizanidine HCl (Tizanidine Hydrochloride) 4 Mg Cap, 1 CAP PO DAILYPRN PRN 08/19/24 Ibuprofen Micronized (Ibuprofen) 800 Mg Tab, 1 TAB PO BIDPRN PRN 08/19/24 Current Medications Current Medications Medications (Trade) Dose Ordered Sig/Johnnie Route PRN Reason Start Time Stop Time Status Last Admin Enoxaparin Sodium (Lovenox) 40 mg DAILY SC 08/20/24 10:00 08/20/24 09:28 Chlordiazepoxide HCl (Librium Capsule) 10 mg Q6HPRN PRN PO etoh withdrawl symptom/Anxiety 08/20/24 17:00 08/20/24 18:41 Vital Signs Vital Signs Date Time Temp Pulse Resp B/P (MAP) Pulse Ox O2 Delivery O2 Flow Rate FiO2 08/20/24 17:00 98.0 63 20 147/85 (105) 94 98.0 08/20/24 10:00 Room Air* 0 21 Physical Exam Gen.: Patient lying in bed in no apparent distress. On supplemental oxygen. Head: Normocephalic, atraumatic. Eyes: EOMI/PERRLA. Ears: Normal hearing. Normal anatomy. Neck/trachea: Trachea midline, supple. Nose: Normal external anatomy. Mouth: Moist mucous membranes. Chest: Decreased air entry bilaterally. No wheezing or rhonchi. Cardiovascular: Positive S1, positive S2. Regular rate and rhythm. Abdomen: Positive bowel sounds in all 4 quadrants. Soft, non-tender, non-d istended. : Deferred. Rectal: Deferred. Skin: Warm, dry. Intact. Extremities: 2+ radial pulses bilaterally. No lower extremity edema. Neuro: Awake, alert, oriented x3. No gross motor or sensory deficits. Cranial nerves II through XII intact. Gait not assessed. Labs/Diagnostic Data Labs Test 08/20/24 05:15 08/20/24 01:45 08/19/24 19:55 08/19/24 14:32 Range/Units White Blood Count 6.7 4.4-10.8 10^3/uL Red Blood Count 4.60 4.5-5.90 10^6/uL Hemoglobin 14.4 13.5-17.5 g/dL Hematocrit 42.3 41.0-53.0 % Mean Corpuscular Volume 91.9 80.0-100.0 fL Mean Corpuscular Hemoglobin 31.3 28.0-32.0 pg Mean Corpuscular Hemoglobin Concent 34.1 32.0-36.0 g/dL Red Cell Distribution Width 13.1 11.8-14.3 % Platelet Count 257 140-450 10^3/uL Mean Platelet Volume 7.7 6.9-10.8 fL Neutrophils (%) (Auto) 65.9 37.0-80.0 % Lymphocytes (%) (Auto) 25.9 10.0-50.0 % Monocytes (%) (Auto) 5.7 0.0-12.0 % Eosinophils (%) (Auto) 1.8 0.0-7.0 % Basophils (%) (Auto) 0.7 0.0-2.0 % Neutrophils # (Auto) 4.4 1.6-8.6 10 ^3/uL Lymphocytes # (Auto) 1.7 0.4-5.4 10 ^3/uL Monocytes # (Auto) 0.4 0-1.3 10 ^3/uL Eosinophils # (Auto) 0.1 0-0.8 10 ^3/uL Basophils # (Auto) 0.1 0-0.2 10 ^3/uL Nucleated Red Blood Cells 0.1 % Sodium Level 141 136-145 mmol/L Potassium Level 4.7 3.5-5.1 mmol/L Chloride Level 104 98-107 mmol/L Carbon Dioxide Level 29 20-31 mmol/L Anion Gap 8 5-15 Blood Urea Nitrogen 6 L 9-23 mg/dL Creatinine 0.76 0.700-1.30 mg/dL Glomerular Filtration Rate Calc 105 >90 mL/min BUN/Creatinine Ratio 7.9 L 10.0-20.0 Serum Glucose 103 74-106 mg/dL Calcium Level 9.9 8.7-10.4 mg/dL Total Bilirubin 1.1 H 0.2-1.0 mg/dL Aspartate Amino Transferase (AST) 29 13-40 U/L Alanine Aminotransferase (ALT) 23 7-40 U/L Alkaline Phosphatase 73 46-116 U/L Total Protein 7.0 5.7-8.2 g/dL Albumin 4.2 3.2-4.8 g/dL Urine Color Light-yellow Yellow Urine Clarity Clear Clear Urine pH 7.0 5.0-9.0 Urine Specific [place] 1.019 1.001-1.035 Urine Protein Negative Negative Urine Ketones Negative Negative Urine Blood Negative Negative /uL Urine Nitrite Negative Negative Urine Bilirubin Negative Negative Urine Urobilinogen 3 H Negative mg/dL Urine Leukocyte Esterase Negative Negative /uL Urine RBC 1 0 - 3 /hpf Urine Microscopic WBC < 1 0-3 /HPF Urine Squamous Epithelial Cells None seen <5 /hpf Urine Bacteria None seen None Seen /hpf Urine Glucose Normal Normal mg/dL Lactic Acid Level 1.4 0.4-2.0 mmol/L Troponin I High Sensitivity 4 </=54 ng/L Test 08/19/24 14:30 08/19/24 11:44 Range/Units Blood Gas Specimen Type Arterial Blood Gas Sample Site Right radial Blood Gas Patient Temperature 37.0 Arterial Blood Date Drawn [id number] Arterial Blood pH 7.473 H 7.350-7.450 Arterial Blood Partial Pressure CO2 40.9 35.0-48.0 mmHg Arterial Blood Partial Pressure O2 62.1 L 83.0-108.0 mmHg Arterial Blood HCO3 29.3 H 21.0-28.0 mmol/L Arterial Blood Oxygen Saturation 91.9 L 94.0-98.0 % Arterial Blood Base Excess 5.2 H -2.0-3.0 mmol/L Arterial Blood Oxyhemoglobin 90.5 L 94.0-98.0 % Arterial Blood Carboxyhemoglobin 1.1 0.5-1.5 % Arterial Blood Methemoglobin 0.4 0.0-1.5 % Justin Test Yes Blood Gas Total Hemoglobin 15.80 13.5-17.5 g/dL Blood Gas Modality Room air FiO2 % 21.0 D-Dimer, Quantitative 1.18 H 0.0-0.49 mg/L FEU Magnesium Level 1.9 1.6-2.6 mg/dL B-Type Natriuretic Peptide 113.51 0-100 pg/mL Plasma/Serum Blood Alcohol 71.0 H <10 mg/dL Assessment Impression: Hypoxia, resolved Mediastinal/hilar lymphadenopathy GGO on imaging Pulmonary nodule, RUL Atelectasis Lactic acidosis, resolved Morbid obesity, BMI 46.5 Plan: CT chest shows no acute PE. RUL Pulmonary nodule of 1.7 cm. Ground-glass opacities Recommend CT-guided bx as it was in periphery. Consult IR to assess for inability of CT-guided bx ABG reviewed, notable for alkalemia Supplemental oxygen Titrate to keep O2 sats above 92%. Bronchodilators as needed. Monitor renal function. Monitor electrolytes. Supplement as necessary. Monitor ins and outs. Recommend outpatient sleep study - several risk factors for [place]. Monitor for alcohol withdrawal. Diet and lifestyle modifications for weight reduction Morbid Obesity - complicates all care DVT prophylaxis. Prognosis: Poor given patient's multiple co-morbidities. Rest of plan per hospitalist and other consultants. Thank you Dr Young for allowing me to participate in this patient's care. Further recommendations will depend on the patient's clinical course. Please do not hesitate to contact me if you have any questions or concerns. This medical document was created using an electronic medical record system with [employer] system. Although these documentations are being carefully reviewed, there may still be some phonetic and typographical changes. The errors are purely typographical, due to imperfection on the software program, and do not reflect any compromise in the patient's medical care. Plan discussed with: Patient, Other (CHEY Zepeda/ALYSA Soto/) NATO WINCHESTER MD Aug 20, 2024 18:45
--- NOTE | 2024-08-20 19:21 | DVHPN2 ---
Subjective denies any chest pain/has shortness of breath for month/no fever/chills Changes from previous H/P or p: No Changes Respiratory: Shortness of breath Objective Vitals Vital Signs Date Time Temp Pulse Resp B/P (MAP) Pulse Ox O2 Delivery O2 Flow Rate FiO2 08/20/24 18:40 93 Room Air 0.0 08/20/24 18:40 21 08/20/24 17:00 98.0 63 20 147/85 (105) 98.0 Intake/Output Intake and Output 08/20/24 07:00 Intake Total 400 ml Balance 400 ml Intake Oral 400 ml # Voids 2 General Appearance: Alert, Oriented X3, Cooperative, No acute distress Lungs: Clear to auscultation Cardiovascular: Regular rate, Normal S1, Normal S2 Abdomen: Normal bowel sounds, Soft, No tenderness, No hepatospenomegaly Extremities: No edema Neuro: Normal gait, Normal speech, Strength at 5/5 X4 ext, Normal tone, S ensation intact, Cranial nerves 3-12 NL Psych/Mental Status: Mental status NL, Mood NL Medications Current Medications Medications Dose Ordered Sig/Johnnie Route Start Time Stop Time Status Last Admin Dose Admin Albuterol 2.5 mg Q2HPRN PRN NEB 08/19/24 17:00 08/20/24 07:05 2.5 MG Sodium Chloride 1,000 ml @ 60 mls/hr [id number] IV 08/19/24 17:00 08/20/24 09:35 60 MLS/HR Enoxaparin Sodium 40 mg DAILY SC 08/20/24 10:00 08/20/24 09:28 40 MG Acetaminophen 650 mg Q6HP PRN PO 08/19/24 17:00 Patient Own Medication 1 cap DAILYPRN PRN PO 08/19/24 17:00 Chlordiazepoxide HCl 10 mg Q6HPRN PRN PO 08/20/24 17:00 08/20/24 18:41 10 MG Laboratory Results Laboratory Tests 08/20/24 05:15 Chemistry Test 08/20/24 05:15 Albumin 4.2 g/dL (3.2-4.8) Calcium Level 9.9 mg/dL (8.7-10.4) Total Protein 7.0 g/dL (5.7-8.2) LFT Test 08/20/24 05:15 Alanine Aminotransferase (ALT) 23 U/L (7-40) Alkaline Phosphatase 73 U/L (46-116) Aspartate Amino Transferase (AST) 29 U/L (13-40) Total Bilirubin 1.1 mg/dL (0.2-1.0) H Urinalysis Test 08/20/24 01:45 Urine Color Light-yellow (Yellow) Urine Clarity Clear (Clear) Urine pH 7.0 (5.0-9.0) Urine Specific [place] 1.019 (1.001-1.035) Urine Protein Negative (Negative) Urine Ketones Negative (Negative) Urine Blood Negative /uL (Negative) Urine Nitrite Negative (Negative) Urine Bilirubin Negative (Negative) Urine Urobilinogen 3 mg/dL (Negative) H Urine Leukocyte Esterase Negative /uL (Negative) Urine RBC 1 /hpf (0 - 3) Urine Microscopic WBC < 1 /HPF (0-3) Urine Squamous Epithelial Cells None seen /hpf (<5) Urine Bacteria None seen /hpf (None Seen) Urine Glucose Normal mg/dL (Normal) Assessment/Plan Assessment/Plan dyspnea- evaluate consult pulmonary for lung mass/echo/treat for copd excerbation/CTA NEGATIVE FOR PE adrenal nodule- await lung biopsy first/ alcohol abuse- no signs of withdrawl 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
[2024-08-20] MEDS: DOXYCYCLINE 100 MG TAB/CAP PO ONE (19:59)
[2024-08-21] VITALS (13 sets, daily range): BP systolic 128–155; BP diastolic 77–93; PULSE 52–64; RESP 16–20; TEMP 98–98.4; O2SAT 90–100
[2024-08-21] MEDS: IPRATROPIUM BROM 0.5 MG/2.5ML INH SOL NEB SCH (06:49)
[2024-08-21] MEDS: ALBUTEROL SULF 2.5 MG/0.5ML(0.5%) NEB SOLN NEB SCH (06:49)
--- NOTE | 2024-08-21 09:11 | DVHSR ---
APPROVED REPORT EXAM: LIMITED Two-dimensional and M-mode echocardiogram with Doppler and color Doppler. Blood Pressure: 132/77 mmHg INDICATION Dyspnea on exertion RISK FACTORS Obesity: Height: 5'10", Weight: 323 DIMENSIONS LVDd4.9 (3.8-5.7cm)LA (2D) (1.9-4.0cm)Aortic Root4.1 (2.0-3.7cm) LVDs3.4 (2.5-4.0cm)LA (MM) (1.9-4.0cm)Aortic Cusp Exc1.5 (1.5-2.0cm) EF (%) 57.0 (55-70%)Rt. Atrium (1.9-4.0cm)Asc. Aorta cm IVSd1.0 (0.7-1.1cm)RV (D) (1.8-2.4cm) PWd1.1 (0.7-1.1cm) Mitral Valve MitralMitral Stenosis E/A ratio0.02D MVAcm2 Aortic Valve Aortic ValveAortic Stenosis LVOT Diameter2.6 (1.8-2.4cm)Doppler AVAcm2 Tricuspid Valve TR Velocity2.99m/s [id number] Other Information Quality : Technically LimitedRhythm : Technically limited study due to body habitus. Conclusion very limitedstudy lvef 55% by visual estimate normal rv function valves not well assessed no severe abnormality noted
[2024-08-21] MEDS: DOXYCYCLINE 100 MG TAB/CAP PO SCH (09:14)
--- NOTE | 2024-08-21 11:25 | ECG ---
[facility] Test Date: 2024-08-19 Test Time: 11:33:24 Pat Name: RAMIRO ANDRADE Department: ER Room: 0286 Gender: M Ward Assistant: KENIA : 1970 Requested By: JANIA CURRY Order Number: [id number] Reading MD: Measurements Intervals [place] Rate: 61 P: 10 [place]: 164 QRS: -6 QRSD: 100 T: 4 QT: 424 QTc: 427 Interpretive Statements Sinus rhythm Atrial premature complex Abnormal R-wave progression, early transition Baseline wander in lead(s) II,aVR,aVF,V1,V2 Please click the below link to view image of tracing.
[2024-08-21] MEDS: NICOTINE 14 MG/24HR TOPICAL PATCH TD ONE (16:59)
--- NOTE | 2024-08-21 17:22 | DVHPN2 ---
Subjective in bed resting, not on oxygen Changes from previous H/P or p: No Changes Respiratory: Shortness of breath Objective Vitals Vital Signs Date Time Temp Pulse Resp B/P (MAP) Pulse Ox O2 Delivery O2 Flow Rate FiO2 08/21/24 16:59 98.4 60 20 132/90 (104) 97 98.4 08/21/24 11:38 Room Air 08/21/24 11:38 0 21 Intake/Output Intake and Output 08/21/24 07:00 Intake Total 1636 ml Output Total 1200 ml Balance 436 ml Intake Oral 1636 ml Output Urine Total 1200 ml General Appearance: Alert, Oriented X3, Cooperative, No acute distress Lungs: Clear to auscultation Cardiovascular: Regular rate, Normal S1, Normal S2 Abdomen: Normal bowel sounds, Soft, No tenderness, No hepatospenomegaly Extremities: No edema Neuro: Normal gait, Normal speech, Strength at 5/5 X4 ext, Normal tone, S ensation intact, Cranial nerves 3-12 NL Psych/Mental Status: Mental status NL, Mood NL Medications Current Medications Medications Dose Ordered Sig/Johnnie Route Start Time Stop Time Status Last Admin Dose Admin Albuterol 2.5 mg Q2HPRN PRN NEB 08/19/24 17:00 08/20/24 07:05 2.5 MG Sodium Chloride 1,000 ml @ 60 mls/hr [id number] IV 08/19/24 17:00 08/21/24 02:24 60 MLS/HR Enoxaparin Sodium 40 mg DAILY SC 08/20/24 10:00 08/21/24 09:16 40 MG Acetaminophen 650 mg Q6HP PRN PO 08/19/24 17:00 Patient Own Medication 1 cap DAILYPRN PRN PO 08/19/24 17:00 Chlordiazepoxide HCl 10 mg Q6HPRN PRN PO 08/20/24 17:00 08/20/24 18:41 10 MG Doxycycline Monohydrate 100 mg Q12HR PO 08/21/24 10:00 08/21/24 09:14 100 MG Albuterol 2.5 mg Q6HWA NEB 08/21/24 06:00 08/21/24 11:38 2.5 MG Ipratropium [place] 0.5 mg Q6HWA NEB 08/21/24 06:00 08/21/24 11:38 0.5 MG Nicotine 1 patch DAILY TD 08/22/24 10:00 Laboratory Results Laboratory Tests 08/20/24 05:15 Urinalysis Test 08/20/24 01:45 Urine Color Light-yellow (Yellow) Urine Clarity Clear (Clear) Urine pH 7.0 (5.0-9.0) Urine Specific [place] 1.019 (1.001-1.035) Urine Protein Negative (Negative) Urine Ketones Negative (Negative) Urine Blood Negative /uL (Negative) Urine Nitrite Negative (Negative) Urine Bilirubin Negative (Negative) Urine Urobilinogen 3 mg/dL (Negative) H Urine Leukocyte Esterase Negative /uL (Negative) Urine RBC 1 /hpf (0 - 3) Urine Microscopic WBC < 1 /HPF (0-3) Urine Squamous Epithelial Cells None seen /hpf (<5) Urine Bacteria None seen /hpf (None Seen) Urine Glucose Normal mg/dL (Normal) Assessment/Plan Assessment/Plan Hypoxia, resolved Mediastinal/hilar lymphadenopathy GGO on imaging Pulmonary nodule, RUL Atelectasis Lactic acidosis, resolved Morbid obesity, BMI 46.5 Plan: CT chest shows no acute PE. RUL Pulmonary nodule of 1.7 cm. Ground-glass opacities Recommend CT-guided bx as it was in periphery. IR consult for biopsy pending as per pulm>needs outpatient sleep study Plan discussed with: Patient Date of Service: Aug 21, 2024 Billing Provider: AYAN PERES MD Common Visit Codes: [id number] INP/OBS CARE(HIGH) AYAN PERES MD Aug 21, 2024 17:22
--- NOTE | 2024-08-21 22:43 | DVHPN2 ---
Progress Note - Dictate Date Seen: Aug 21, 2024 Medical Necessity Reason Pt with a Central, PICC or Fol: No Subjective Patient seen and examined at bedside. Breathing comfortably on room air. Overnight events reviewed. vital signs Vital Sign Date Time Temp Pulse Resp B/P (MAP) Pulse Ox O2 Delivery O2 Flow Rate FiO2 08/21/24 20:00 Room Air* 0 21 08/21/24 18:08 60 16 100 08/21/24 16:59 98.4 132/90 (104) 98.4 Total Intake and Output 08/20/24 08/20/24 08/21/24 15:00 23:00 07:00 Intake Total 436 ml 400 ml 800 ml Output Total 650 ml 550 ml Balance 436 ml -250 ml 250 ml medications Current Medications Medications Dose Ordered Sig/Johnnie Route Start Time Stop Time Status Last Admin Dose Admin Albuterol 2.5 mg Q2HPRN PRN NEB 08/19/24 17:00 08/20/24 07:05 2.5 MG Sodium Chloride 1,000 ml @ 60 mls/hr [id number] IV 08/19/24 17:00 08/21/24 21:08 60 MLS/HR Enoxaparin Sodium 40 mg DAILY SC 08/20/24 10:00 08/21/24 09:16 40 MG Acetaminophen 650 mg Q6HP PRN PO 08/19/24 17:00 Patient Own Medication 1 cap DAILYPRN PRN PO 08/19/24 17:00 Chlordiazepoxide HCl 10 mg Q6HPRN PRN PO 08/20/24 17:00 08/20/24 18:41 10 MG Doxycycline Monohydrate 100 mg Q12HR PO 08/21/24 10:00 08/21/24 21:08 100 MG Albuterol 2.5 mg Q6HWA NEB 08/21/24 06:00 08/21/24 17:59 2.5 MG Ipratropium [place] 0.5 mg Q6HWA NEB 08/21/24 06:00 08/21/24 17:59 0.5 MG Nicotine 1 patch DAILY TD 08/22/24 10:00 objective Gen.: Patient lying in bed in no apparent distress. Breathing on room air. Head: Normocephalic, atraumatic. Eyes: EOMI/PERRLA. Ears: Normal hearing. Normal anatomy. Neck/trachea: Trachea midline, supple. Nose: Normal external anatomy. Mouth: Moist mucous membranes. Chest: Decreased air entry bilaterally. No wheezing or rhonchi. Cardiovascular: Positive S1, positive S2. Regular rate and rhythm. Abdomen: Positive bowel sounds in all 4 quadrants. Soft, non-tender, non- distended. : Deferred. Rectal: Deferred. Skin: Warm, dry. Intact. Extremities: 2+ radial pulses bilaterally. No lower extremity edema. Neuro: Awake, alert, oriented x3. No gross motor or sensory deficits. Cranial nerves II through XII intact. Gait not assessed. laboratory and microbiology Laboratory Tests 08/20/24 05:15 Test 08/20/24 05:15 Range/Units Serum Glucose 103 74-106 mg/dL Assessment/Plan Impression: Hypoxia, resolved Mediastinal/hilar lymphadenopathy GGO on imaging Pulmonary nodule, RUL Atelectasis Lactic acidosis, resolved Morbid obesity, BMI 46.5 Events: Breathing on room air Supplemental oxygen PRN CT chest shows RUL pulmonary nodule of 1.7 cm. Ground-glass opacities Recommend CT-guided bx as it was in periphery. Consult IR to assess for inability of CT-guided lung biopsy Patient requests nicotine patch. Continue bronchodilators PRN Monitor for alcohol withdrawal. DVT prophylaxis. Labs and imaging reviewed. Rest of plan as noted below. Plan: Supplemental oxygen PRN Titrate to keep O2 sats above 92%. Bronchodilators as needed. Monitor renal function. Monitor electrolytes. Supplement as necessary. Monitor ins and outs. Recommend outpatient sleep study - several risk factors for [place]. Monitor for alcohol withdrawal. Diet and lifestyle modifications for weight reduction Morbid Obesity - complicates all care DVT prophylaxis. Prognosis: Poor given patient's multiple co-morbidities. Rest of plan per hospitalist and other consultants. Thank you Dr Young for allowing me to participate in this patient's care. Further recommendations will depend on the patient's clinical course. Please do not hesitate to contact me if you have any questions or concerns. This medical document was created using an electronic medical record system with [employer] system. Although these documentations are being carefully reviewed, there may still be some phonetic and typographical changes. The errors are purely typographical, due to imperfection on the software program, and do not reflect any compromise in the patient's medical care. Plan discussed with: Patient, Other (CHEY Casillas) NATO WINCHESTER MD Aug 21, 2024 22:43
[2024-08-22] VITALS (10 sets, daily range): BP systolic 130–148; BP diastolic 70–112; PULSE 49–72; RESP 16–18; TEMP 97.8–98.3; O2SAT 93–100
[2024-08-22] MEDS: NICOTINE 14 MG/24HR TOPICAL PATCH TD SCH (09:31)
[2024-08-22] MEDS ORDERED: MIDAZOLAM HCL 2MG/2ML 2ml VIAL (1mg/ml) IV ONE (12:15)
[2024-08-22] MEDS ORDERED: fentaNYL CITRATE 100 MCG/2 ML VL IV ONE (12:15)
[2024-08-22 13:10] LABS: Partial Thromboplastin Time 27.9 SEC (24.5-34.5); Prothrombin Time 10.6 sec (9.3-11.8)
--- NOTE | 2024-08-22 14:34 | DVH ---
CHEST RADIOGRAPH Indication: POST LUNG BX Technique: Single frontal view of the chest was obtained Comparison: XY CHEST PORTABLE on DOS: 08/19/24 FINDINGS: Lines and Tubes: None Lungs: No focal consolidation. Pleura: No effusion. No pneumothorax. Cardiomediastinal contours: Unremarkable Bones: No acute osseous abnormality. IMPRESSION: No acute cardiopulmonary disease.
--- NOTE | 2024-08-22 14:38 | DVH ---
CT CHEST WITHOUT CONTRAST, HISTORY: LUNG BX PROCEDURE: Informed consent was obtained. The patient was placed prone on the CT scanner. A limited l ocalization CT scan of the lung was obtained. The skin overlying the lesion was prepped with chlorhex idine which was allowed to dry and draped in sterile fashion. Time out was performed. The skin and so ft tissues were infiltrated with Xylocaine, and IV sedation was administered. With intermittent CT gu idance, a 19 gauge Tem[place] outer coaxial guiding needle was advanced into the right lung nodule. The ne edle position was confirmed with CT scan. 2 core biopsies were obtained using Temno inner 20 gauge bi opsy needle. The specimens were sent in formalin to pathology for analysis. A visceral blood patch w as applied as the needle was withdrawn the needle was withdrawn, and post procedural CT obtained thro ugh the biopsy region. No immediate complication was identified was noted, and patient was transport to recovery in stable condition without respiratory distress. DLP = 2035 mGy-cm. SEDATION: Dr. Alessandra Younger was personally responsible for the administration of moderate sedation during the procedure performed, including the use of an independent trained observer who had no other duties during the procedure. The drugs utilized were IV fentanyl and versed (see nursing log for details). The total time of supervision by the attending physician was approximately 45 minutes. FINDINGS: Limited CT scan demonstrates a soft tissue nodule in the right upper lobe and the biopsy ne edle within the margin of the lung mass. No significant post biopsy hemorrhage or pneumothorax is not ed. IMPRESSION/PLAN: CT guided lung biopsy. Pathology pending. ; will follow up CXRs.
--- NOTE | 2024-08-22 14:53 | DVHPN2 ---
Subjective Seen and examined at bedside, s/p Lung Biopsy. Possible DC in AM Changes from previous H/P or p: No Changes Respiratory: No Cough, No Dry, No Shortness of breath, No SOB with excertion, No Wheezing, No Hemoptysis, No Pleuritic Pain, No Sputum, No Other Objective Vitals Vital Signs Date Time Temp Pulse Resp B/P (MAP) Pulse Ox O2 Delivery O2 Flow Rate FiO2 08/22/24 13:12 57 18 100 08/22/24 13:05 Nasal Cannula* 2 28 08/22/24 13:00 98.3 130/70 (90) 98.3 Intake/Output Intake and Output 08/22/24 07:00 Intake Total 2800 ml Balance 2800 ml Intake Oral 2200 ml IV Total 600 ml # Voids 3 # Bowel Movements 1 General Appearance: Alert, Oriented X3, Cooperative, No acute distress Lungs: Clear to auscultation Cardiovascular: Regular rate, Normal S1, Normal S2 Abdomen: Normal bowel sounds, Soft, No tenderness, No hepatospenomegaly Extremities: No edema Neuro: Normal gait, Normal speech, Strength at 5/5 X4 ext, Normal tone, S ensation intact, Cranial nerves 3-12 NL Psych/Mental Status: Mental status NL, Mood NL Medications Current Medications Medications Dose Ordered Sig/Johnnie Route Start Time Stop Time Status Last Admin Dose Admin Albuterol 2.5 mg Q2HPRN PRN NEB 08/19/24 17:00 08/20/24 07:05 2.5 MG Sodium Chloride 1,000 ml @ 60 mls/hr [id number] IV 08/19/24 17:00 08/21/24 21:08 60 MLS/HR Enoxaparin Sodium 40 mg DAILY SC 08/20/24 10:00 08/22/24 09:31 40 MG Acetaminophen 650 mg Q6HP PRN PO 08/19/24 17:00 Patient Own Medication 1 cap DAILYPRN PRN PO 08/19/24 17:00 Chlordiazepoxide HCl 10 mg Q6HPRN PRN PO 08/20/24 17:00 08/22/24 10:03 10 MG Doxycycline Monohydrate 100 mg Q12HR PO 08/21/24 10:00 08/22/24 09:31 100 MG Albuterol 2.5 mg Q6HWA NEB 08/21/24 06:00 08/22/24 13:05 2.5 MG Ipratropium [place] 0.5 mg Q6HWA NEB 08/21/24 06:00 08/22/24 13:05 0.5 MG Nicotine 1 patch DAILY TD 08/22/24 10:00 08/22/24 09:31 1 PATCH Laboratory Results Laboratory Tests 08/20/24 05:15 Coagulation Test 08/22/24 12:31 Prothrombin Time 10.6 sec (9.3-11.8) Prothrombin Time INR 1.00 (0.9-1.15) Activated Partial Thromboplast Time 27.9 SEC (24.5-34.5) Urinalysis Test 08/20/24 01:45 Urine Color Light-yellow (Yellow) Urine Clarity Clear (Clear) Urine pH 7.0 (5.0-9.0) Urine Specific [place] 1.019 (1.001-1.035) Urine Protein Negative (Negative) Urine Ketones Negative (Negative) Urine Blood Negative /uL (Negative) Urine Nitrite Negative (Negative) Urine Bilirubin Negative (Negative) Urine Urobilinogen 3 mg/dL (Negative) H Urine Leukocyte Esterase Negative /uL (Negative) Urine RBC 1 /hpf (0 - 3) Urine Microscopic WBC < 1 /HPF (0-3) Urine Squamous Epithelial Cells None seen /hpf (<5) Urine Bacteria None seen /hpf (None Seen) Urine Glucose Normal mg/dL (Normal) Assessment/Plan Assessment/Plan Acute Resp Failure?? Mediastinal/hilar lymphadenopathy- Outpatient pulm Pulmonary nodule, RUL- Biopsy Atelectasis Lactic acidosis, resolved Morbid obesity, BMI 46.5- Block Placer on weight loss Plan discussed with: Patient, Spouse My Orders Orders - GAIL MITCHELL MD Procedure Category Date Status Time Chest Without Contrast CT 08/22/24 Resulted 12:[address] 08/22/24 Resulted 12:45 Chest Portable XY 08/22/24 Resulted 12:44 Chest Portable XY 08/22/24 Logged 16:30 Date of Service: Aug 22, 2024 Billing Provider: GAIL MITCHELL MD Common Visit Codes: [id number] INP/OBS CARE(HIGH) GAIL MITCHELL MD Aug 22, 2024 14:53
--- NOTE | 2024-08-22 17:08 | DVH ---
CHEST RADIOGRAPH Indication: post right lung biopsy Technique: Single frontal view of the chest was obtained COMPARISON: XY CHEST PORTABLE on DOS: 08/22/24, XY CHEST PORTABLE on DOS: 08/19/24 FINDINGS: Lines and Tubes: None Lungs: Clear Pleura: No effusion. No pneumothorax. Cardiomediastinal contours: Unremarkable Bones: Unremarkable IMPRESSION: 1. Post biopsy right lung demonstrates no pneumothorax.
[2024-08-22] MEDS ORDERED: THIA100T10 PO (17:36)
[2024-08-22] MEDS ORDERED: DOX100T PO (17:36)
[2024-08-22] MEDS ORDERED: FOLI-119 PO (17:36)
[2024-08-22] MEDS ORDERED: MULT-1056 PO (17:36)
--- NOTE | 2024-08-22 17:38 | DVHDS2 ---
Discharge Summary Date of Admission Aug 19, 2024 at 16:55 Date of Discharge: Aug 22, 2024 Admitting Diagnosis Acute Resp Failure Labs/Diagnostic Data: Laboratory Results Test 08/22/24 12:31 08/20/24 05:15 08/20/24 01:45 08/19/24 19:55 Prothrombin Time 10.6 sec (9.3-11.8) Prothrombin Time INR 1.00 (0.9-1.15) Activated Partial Thromboplast Time 27.9 SEC (24.5-34.5) White Blood Count 6.7 10^3/uL (4.4-10.8) Red Blood Count 4.60 10^6/uL (4.5-5.90) Hemoglobin 14.4 g/dL (13.5-17.5) Hematocrit 42.3 % (41.0-53.0) Mean Corpuscular Volume 91.9 fL (80.0-100.0) Mean Corpuscular Hemoglobin 31.3 pg (28.0-32.0) Mean Corpuscular Hemoglobin Concent 34.1 g/dL (32.0-36.0) Red Cell Distribution Width 13.1 % (11.8-14.3) Platelet Count 257 10^3/uL (140-450) Mean Platelet Volume 7.7 fL (6.9-10.8) Neutrophils (%) (Auto) 65.9 % (37.0-80.0) Lymphocytes (%) (Auto) 25.9 % (10.0-50.0) Monocytes (%) (Auto) 5.7 % (0.0-12.0) Eosinophils (%) (Auto) 1.8 % (0.0-7.0) Basophils (%) (Auto) 0.7 % (0.0-2.0) Neutrophils # (Auto) 4.4 10 ^3/uL (1.6-8.6) Lymphocytes # (Auto) 1.7 10 ^3/uL (0.4-5.4) Monocytes # (Auto) 0.4 10 ^3/uL (0-1.3) Eosinophils # (Auto) 0.1 10 ^3/uL (0-0.8) Basophils # (Auto) 0.1 10 ^3/uL (0-0.2) Nucleated Red Blood Cells 0.1 % Sodium Level 141 mmol/L (136-145) Potassium Level 4.7 mmol/L (3.5-5.1) Chloride Level 104 mmol/L (98-107) Carbon Dioxide Level 29 mmol/L (20-31) Anion Gap 8 (5-15) Blood Urea Nitrogen 6 mg/dL (9-23) Creatinine 0.76 mg/dL (0.700-1.30) Glomerular Filtration Rate Calc 105 mL/min (>90) BUN/Creatinine Ratio 7.9 (10.0-20.0) Serum Glucose 103 mg/dL (74-106) Calcium Level 9.9 mg/dL (8.7-10.4) Total Bilirubin 1.1 mg/dL (0.2-1.0) Aspartate Amino Transferase (AST) 29 U/L (13-40) Alanine Aminotransferase (ALT) 23 U/L (7-40) Alkaline Phosphatase 73 U/L (46-116) Total Protein 7.0 g/dL (5.7-8.2) Albumin 4.2 g/dL (3.2-4.8) Thyroid Stimulating Hormone (TSH) 1.89 uIU/mL (0.55-4.78) Free Thyroxine (T4) Calculated 1.27 ng/dL (0.89-1.76) Urine Color Light-yellow (Yellow) Urine Clarity Clear (Clear) Urine pH 7.0 (5.0-9.0) Urine Specific [place] 1.019 (1.001-1.035) Urine Protein Negative (Negative) Urine Ketones Negative (Negative) Urine Blood Negative /uL (Negative) Urine Nitrite Negative (Negative) Urine Bilirubin Negative (Negative) Urine Urobilinogen 3 mg/dL (Negative) Urine Leukocyte Esterase Negative /uL (Negative) Urine RBC 1 /hpf (0 - 3) Urine Microscopic WBC < 1 /HPF (0-3) Urine Squamous Epithelial Cells None seen /hpf (<5) Urine Bacteria None seen /hpf (None Seen) Urine Glucose Normal mg/dL (Normal) Lactic Acid Level 1.4 mmol/L (0.4-2.0) Test 08/19/24 14:32 08/19/24 14:30 08/19/24 11:44 Troponin I High Sensitivity 4 ng/L (</=54) Blood Gas Specimen Type Arterial Blood Gas Sample Site Right radial Blood Gas Patient Temperature 37.0 Arterial Blood Date Drawn [id number] Arterial Blood pH 7.473 (7.350-7.450) Arterial Blood Partial Pressure CO2 40.9 mmHg (35.0-48.0) Arterial Blood Partial Pressure O2 62.1 mmHg (83.0-108.0) Arterial Blood HCO3 29.3 mmol/L (21.0-28.0) Arterial Blood Oxygen Saturation 91.9 % (94.0-98.0) Arterial Blood Base Excess 5.2 mmol/L (-2.0-3.0) Arterial Blood Oxyhemoglobin 90.5 % (94.0-98.0) Arterial Blood Carboxyhemoglobin 1.1 % (0.5-1.5) Arterial Blood Methemoglobin 0.4 % (0.0-1.5) Justin Test Yes Blood Gas Total Hemoglobin 15.80 g/dL (13.5-17.5) Blood Gas Modality Room air FiO2 % 21.0 D-Dimer, Quantitative 1.18 mg/L FEU (0.0-0.49) Magnesium Level 1.9 mg/dL (1.6-2.6) B-Type Natriuretic Peptide 113.51 pg/mL (0-100) Plasma/Serum Blood Alcohol 71.0 mg/dL (<10) Other Laboratory Tests 08/20/24 05:15 Brief Hx & Hospital Course: A 54-year-old man with past medical history of gigantism who presented to ED on 08/19/24 with chief complaint of shortness of breath x3-4 days. Upon evaluation, patient denied recent injury or trauma to his chest. He did admit to having similar symptoms in the past. Pt admitted to heavy alcohol use - drinking vodka daily, last drink morning of presentation. He denied fever, chills, headache, dizziness, palpitation, chest pain, N/V/D or other associated symptoms. Patient was admitted for further care and pulmonary consultation is requested for evaluation and management d/t hypoxia and pulmonary nodule. Patient underwent lung biopsy, patients spouse advised to followup in discharge clinic for pathology results. Needs stop alcohol abuse. Operations or Procedures APPROVED REPORT EXAM: LIMITED Two-dimensional and M-mode echocardiogram with Doppler and color Doppler. Blood Pressure: 132/77 mmHg INDICATION Dyspnea on exertion RISK FACTORS Obesity: Height: 5'10", Weight: 323 DIMENSIONS LVDd 4.9 (3.8-5.7cm) LA (2D) (1.9-4.0cm) Aortic Root 4.1 (2.0- 3.7cm) LVDs 3.4 (2.5-4.0cm) LA (MM) (1.9-4.0cm) Aortic Cusp Exc 1.5 (1.5- 2.0cm) EF (%) 57.0 (55-70%) Rt. Atrium (1.9-4.0cm) Asc. Aorta cm IVSd 1.0 (0.7-1.1cm) RV (D) (1.8-2.4cm) PWd 1.1 (0.7-1.1cm) Mitral Valve Mitral Mitral Stenosis E/A ratio 0.0 2D MVA cm2 Aortic Valve Aortic Valve Aortic Stenosis LVOT Diameter 2.6 (1.8-2.4cm) Doppler AUGUST cm2 Tricuspid Valve TR Velocity 2.99m/s RVSP 44mmHg Other Information Quality : Technically Limited Rhythm : Technically limited study due to body habitus. Conclusion very limitedstudy lvef 55% by visual estimate normal rv function valves not well assessed no severe abnormality noted CT CHEST WITHOUT CONTRAST, HISTORY: LUNG BX PROCEDURE: Informed consent was obtained. The patient was placed prone on the CT scanner. A limited localization CT scan of the lung was obtained. The skin overlying the lesion was prepped with chlorhexidine which was allowed to dry and draped in sterile fashion. Time out was performed. The skin and soft tissues were infiltrated with Xylocaine, and IV sedation was administered. With intermittent CT guidance, a 19 gauge Tem[place] outer coaxial guiding needle was advanced into the right lung nodule. The needle position was confirmed with CT scan. 2 core biopsies were obtained using Temno inner 20 gauge biopsy needle. The specimens were sent in formalin to pathology for analysis. A visceral blood patch was applied as the needle was withdrawn the needle was withdrawn, and post procedural CT obtained through the biopsy region. No immediate complication was identified was noted, and patient was transport to recovery in stable condition without respiratory distress. DLP = 2035 mGy-cm. SEDATION: Dr. Alessandra Younger was personally responsible for the administration of moderate sedation during the procedure performed, including the use of an independent trained observer who had no other duties during the procedure. The drugs utilized were IV fentanyl and versed (see nursing log for details). The total time of supervision by the attending physician was approximately 45 minutes. FINDINGS: Limited CT scan demonstrates a soft tissue nodule in the right upper lobe and the biopsy needle within the margin of the lung mass. No significant post biopsy hemorrhage or pneumothorax is noted. IMPRESSION/PLAN: CT guided lung biopsy. Pathology pending. ; will follow up CXRs. Condition at Discharge: Poor Final Diagnosis/Problems List Acute Resp Failure?? 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 Dudley Medications: Multivitamin Thiamine Folic Acid Discharge Statement: "Patient was advised to return to the ER or call 911 if any headaches, dizziness, shortness of breath, chest pain, abdominal pain, bleeding, fevers, or worsening of medical condition. Patient was counseled about treatment plan, medications, possible side effects, patientverbalized understanding. All questions were answered to the best of my ability. This discharge took greater then 30 minutes in planning, reviewing documentation, counseling the patient, and discussing with other team members." ASSESSMENT ASSESSMENT Assessment Date of Service: Aug 22, 2024 Billing Provider: GAIL MITCHELL MD Common Visit Codes: [id number] DISCH DAY >30min GAIL MITCHELL MD Aug 22, 2024 17:38
--- NOTE | 2024-08-22 22:37 | DVHPN2 ---
Progress Note - Dictate Date Seen: Aug 22, 2024 Medical Necessity Reason Pt with a Central, PICC or Fol: No Subjective Patient seen and examined at bedside. Breathing comfortably on room air. Overnight events reviewed. vital signs Vital Sign Date Time Temp Pulse Resp B/P (MAP) Pulse Ox O2 Delivery O2 Flow Rate FiO2 08/22/24 17:00 97.9 55 17 140/94 (109) 94 97.9 08/22/24 13:05 Nasal Cannula* 2 28 Total Intake and Output 08/21/24 08/21/24 08/22/24 15:00 23:00 07:00 Intake Total 1800 ml 1000 ml Balance 1800 ml 1000 ml objective Gen.: Patient lying in bed in no apparent distress. Breathing on room air. Head: Normocephalic, atraumatic. Eyes: EOMI/PERRLA. Ears: Normal hearing. Normal anatomy. Neck/trachea: Trachea midline, supple. Nose: Normal external anatomy. Mouth: Moist mucous membranes. Chest: Decreased air entry bilaterally. No wheezing or rhonchi. Cardiovascular: Positive S1, positive S2. Regular rate and rhythm. Abdomen: Positive bowel sounds in all 4 quadrants. Soft, non-tender, non- distended. : Deferred. Rectal: Deferred. Skin: Warm, dry. Intact. Extremities: 2+ radial pulses bilaterally. No lower extremity edema. Neuro: Awake, alert, oriented x3. No gross motor or sensory deficits. Cranial nerves II through XII intact. Gait not assessed. laboratory and microbiology Laboratory Tests 08/20/24 05:15 Test 08/20/24 05:15 Range/Units Serum Glucose 103 74-106 mg/dL Assessment/Plan Impression: Hypoxia, resolved Mediastinal/hilar lymphadenopathy GGO on imaging Pulmonary nodule, RUL Atelectasis Lactic acidosis, resolved Morbid obesity, BMI 46.5 Events: Remains on room air Supplemental oxygen PRN CT chest shows RUL pulmonary nodule of 1.7 cm. Ground-glass opacities CT-guided lung biopsy planned for today by IR Status post lung biopsy Continue bronchodilators PRN Continue nicotine patch. Monitor for alcohol withdrawal. Recommend outpatient sleep study - several risk factors for [place]. DVT prophylaxis. Labs and imaging reviewed. Rest of plan as noted below. Plan: Supplemental oxygen PRN Titrate to keep O2 sats above 92%. Bronchodilators as needed. Monitor renal function. Monitor electrolytes. Supplement as necessary. Monitor ins and outs. Monitor for alcohol withdrawal. Diet and lifestyle modifications for weight reduction Morbid Obesity - complicates all care DVT prophylaxis. Prognosis: Guarded given patient's multiple co-morbidities. Rest of plan per hospitalist and other consultants. Thank you Dr Young for allowing me to participate in this patient's care. Further recommendations will depend on the patient's clinical course. Please do not hesitate to contact me if you have any questions or concerns. This medical document was created using an electronic medical record system with [employer] dictation system. Although these documentations are being carefully reviewed, there may still be some phonetic and typographical changes. The errors are purely typographical, due to imperfection on the software program, and do not reflect any compromise in the patient's medical care. Plan discussed with: Patient, Other (CHEY Casillas) NATO WINCHESTER MD Aug 22, 2024 22:37
== END 2024-08-22 18:17 | disposition home or self-care (01) | DRG 816 ==
LOC: ER 11:15 → OVERFLOW 16:55 → WEST WING 22:16
PROVIDERS: ADMIT Internal Medicine; ATTEND Internal Medicine
PROC: 0BBK3ZX Excision of Right Lung, Percutaneous Approach, Diagnostic (ICD-10-PCS; principal; 2024-08-22)
DX: T51.0X1A Toxic effect of ethanol, accidental (unintentional), initial encounter (principal); J96.01 Acute respiratory failure with hypoxia; E87.20 Acidosis, unspecified; J44.9 Chronic obstructive pulmonary disease, unspecified; E22.0 Acromegaly and pituitary gigantism; Y90.3 Blood alcohol level of 60-79 mg/100 ml; R59.0 Localized enlarged lymph nodes; R91.1 Solitary pulmonary nodule; J98.11 Atelectasis; Z68.42 Body mass index [BMI] 45.0-49.9, adult; E66.01 Morbid (severe) obesity due to excess calories; F10.20 Alcohol dependence, uncomplicated
CPT/HCPCS: 10005; 36415; 36600; 71045; 71250; 71275; 77012; 80053; 80320; 81001; 82805; 83605; 83735; 83880; 84439; 84443; 84484; 85025; 85379; 85610; 85730; 93005; 93306; 93970; 94640; G0378; J2250

== ENCOUNTER 2024-08-24 15:01 | Inpatient (IN) | payer MEDICAID ==
[~2024-08-24] VITALS: Ht 177.8 cm; Wt 144.3 kg
[~2024-08-24 15:01] MED LIST: DOX100T PO; FOLI-119 PO; MULT-1056 PO; THIA100T10 PO
[2024-08-24] MEDS ORDERED: ACETAMINOPHEN 325 MG TAB PO PRN (15:30)
[2024-08-24] MEDS ORDERED: ONDANSETRON HCL 4 MG/2 ML VIAL IV PRN (15:30)
[2024-08-24 15:34] VITALS: BP 134/97; PULSE 80; RESP 16; TEMP 97.8; O2SAT 93
--- NOTE | 2024-08-24 15:35 | DVHHP2 ---
Review of Systems Allergies: Coded Allergies: NO KNOWN ALLERGIES (Unverified , 08/17/24) Assessment/Plan Assessment/Plan SEE DICTATED NOTE Plan discussed with: Patient My Orders Orders - EDENILSON ELLIS MD Procedure Category Date Status Time Admit ADMIT 08/24/24 Transmitted 15:22 Regular Diet DIET 08/24/24 Transmitted Dinner * Infectious Rigoberto- CONS 08/24/24 Transmitted K David 15:22 Complete Blood Count LAB 08/24/24 Transmitted 15:22 Comprehensive LAB 08/24/24 Transmitted Metabolic Panel 15:22 PTPTT LAB 08/24/24 Transmitted 15:22 Urinalysis LAB 08/24/24 Uncollected 15:22 Respiratory Culture JOSE ROBERTO 08/24/24 Transmitted W/ Gs 15:22 Fluconazole Ivpb PHA 08/24/24 Transmitted Diflucan 16:00 Fluconazole Ivpb PHA 08/25/24 Transmitted Diflucan 10:00 Acetaminophen Tablet PHA 08/24/24 Transmitted (Tylenol Tablet) 15:30 Ondansetron Hcl PHA 08/24/24 Transmitted (Zofran) 15:30 Chest Two Views XY 08/24/24 Logged Routine 15:22 Date of Service: Aug 24, 2024 Billing Provider: EDENILSON ELLIS MD Common Visit Codes: 37098-[id number] INP/OBS CARE (HIGH) Secondary Visit Codes: 13185-[id number] CARE PLAN 30 MINUTES EDENILSON ELLIS MD Aug 24, 2024 15:35
--- NOTE | 2024-08-24 16:09 | DVH ---
EXAM: XY CHEST TWO VIEWS ROUTINE CLINICAL HISTORY: COCCIDIODOMYCOSIS COMPARISON: 08/22/2024 TECHNIQUE: Frontal and lateral view of the chest was obtained FINDINGS: Lines and Tubes: None Lungs: No focal consolidation. Pleura: No effusion. No obvious pneumothorax. Cardiomediastinal contours: Unremarkable Pulmonary vasculature: Within normal limits. Bones: No acute osseous abnormality. IMPRESSION: 1. No acute cardiopulmonary disease. HS:Y
--- NOTE | 2024-08-24 16:10 | DVHHP ---
ADMIT DATE: 08/24/2024 HISTORY OF PRESENT ILLNESS: The patient is a 54-year-old gentleman who was admitted after he had recently been discharged. The patient came in with increasing shortness of breath. The patient has also had cough. He had recent lung biopsy. The patient denies any fevers. No nausea or vomiting. No palpitations. REVIEW OF SYSTEMS: Review of rest of systems are otherwise currently negative. PAST MEDICAL HISTORY: Significant for gigantism status post craniotomy. MEDICATIONS: He takes no medication on a regular basis. ALLERGIES: No known drug allergies. SOCIAL HISTORY: He drinks vodka, recently quit. Quit smoking about a year ago. Lives at home with his . FAMILY HISTORY: Negative. PHYSICAL EXAMINATION: GENERAL: The patient is awake, alert. VITAL SIGNS: Temperature of 98.6, blood pressure 138/76, pulse of 82 per minute. SHEENT: Unremarkable except for evidence of gigantism. NECK: There is no pedal edema. LUNGS: Equal bilaterally. No added sounds. CARDIOVASCULAR SYSTEM: S1, S2 is regular, no murmurs. ABDOMEN: Soft. There is no organomegaly. NEUROLOGIC: Nonfocal. MUSCULOSKELETAL: Normal. ASSESSMENT AND PLAN: * Pneumonia secondary to coccidioidomycosis. The patient will be placed on IV fluconazole and Infectious Disease consult be obtained. * History of gigantism, status post craniotomy. * History of alcohol abuse. Advance care planning, the patient is a full code. Time spent was 19 minutes. MD ÁNGEL Johnson/TEGAN TID: [id number] RECEIPT: [id number]
[2024-08-24 16:30] VITALS: BP 134/97; PULSE 80; RESP 16; TEMP 97.8; O2SAT 93
[2024-08-24] MEDS: FLUCONAZOLE 200MG/100ML 100 ML IV SCH (17:31)
[2024-08-24 18:05] LABS: Basophils # (auto) 0.1 10 ^3/uL (0-0.2); Basophils % (auto) 0.8 % (0.0-2.0); Eosinophils # (auto) 0.1 10 ^3/uL (0-0.8); Eosinophils % (auto) 1.5 % (0.0-7.0); Hematocrit 46.6 % (41.0-53.0); Hemoglobin 15.6 g/dL (13.5-17.5); Lymphocytes # (auto) 2.2 10 ^3/uL (0.4-5.4); Mean Corpuscular Hemoglobin 30.7 pg (28.0-32.0); Mean Corpuscular Hgb Conc. 33.6 g/dL (32.0-36.0); Mean Corpuscular Volume 91.6 fL (80.0-100.0); Monocytes # (auto) 0.4 10 ^3/uL (0-1.3); Monocytes % (auto) 5.5 % (0.0-12.0); Neutrophils # (auto) 5.1 10 ^3/uL (1.6-8.6); Neutrophils % (auto) 64.2 % (37.0-80.0); Nucleated Red Blood Cells % 0.2 %; Platelet Count (auto) 228 10^3/uL (140-450); Red Blood Cells 5.09 10^6/uL (4.5-5.90); Red Cell Distribution Width 12.8 % (11.8-14.3)
[2024-08-24 18:19] LABS: INR 1.01 (0.9-1.15); Partial Thromboplastin Time 26.7 SEC (24.5-34.5); Prothrombin Time 10.7 sec (9.3-11.8)
[2024-08-24 18:22] LABS: Alkaline Phosphatase 81 U/L (46-116); Anion Gap 10 (5-15); BUN/Creatinine Ratio 15.7 (10.0-20.0); Bilirubin, Total 0.7 mg/dL (0.2-1.0); Blood Urea Nitrogen 14 mg/dL (9-23); Calcium 10.4 mg/dL (8.7-10.4); Carbon Dioxide 23 mmol/L (20-31); Chloride 105 mmol/L (98-107); Glucose 104 mg/dL (74-106); Potassium 4.1 mmol/L (3.5-5.1); Sodium 138 mmol/L (136-145)
[2024-08-24 18:27] LABS: Alanine Aminotransferase 58 U/L (7-40); Albumin 4.9 g/dL (3.2-4.8); Aspartate Aminotransferase 57 U/L (13-40)
--- NOTE | 2024-08-24 19:25 | DVHINCON2 ---
"Date of service: Aug 24, 2024 Family History: FH: throat cancer G8 FATHER, Kidney stones G8 MOTHER, Allergies: Coded Allergies: NO KNOWN ALLERGIES (Unverified , 08/17/24) Home Meds Active Scripts Folic Acid (Folic Acid) 1 Mg Tab, 1 MG PO DAILY for 30 Days, #30 TAB Prov:GAIL MITCHELL MD 08/22/24 Thiamine Hcl (VITAMIN B-1) 100 Mg Tb, 100 MG PO DAILY for 30 Days, #30 TAB Prov:GAIL MITCHELL MD 08/22/24 Multiple Vitamin (Multivitamin) 1 Tab Tab, 1 TAB PO DAILY for 30 Days, #30 TAB Prov:GAIL MITCHELL MD 08/22/24 Doxycycline Monohydrate (Doxycycline Monohydrate) 100 Mg Tab, 100 MG PO Q12HR for 5 Days, #10 TAB Prov:GAIL MITCHELL MD 08/22/24 Discontinued Reported Medications Tizanidine HCl (Tizanidine Hydrochloride) 4 Mg Cap, 1 CAP PO DAILYPRN PRN 08/19/24 Ibuprofen Micronized (Ibuprofen) 800 Mg Tab, 1 TAB PO BIDPRN PRN 08/19/24 Current Medications Current Medications Medications (Trade) Dose Ordered Sig/Johnnie Route PRN Reason Start Time Stop Time Status Last Admin Fluconazole 100 ml @ 100 mls/hr Q1HR IV 08/24/24 16:00 08/24/24 17:59 DC 08/24/24 17:31 Fluconazole 100 ml @ 100 mls/hr DAILY@1000,1100 IV 08/25/24 10:00 Acetaminophen (Tylenol Tablet) 650 mg Q4HP PRN PO MILD PAIN (1-3 PAIN SCALE) 08/24/24 15:30 Ondansetron HCl (Zofran) 4 mg Q6HPRN PRN IV NAUSEA / VOMITING 08/24/24 15:30 Vital Signs Vital Signs Date Time Temp Pulse Resp B/P (MAP) Pulse Ox O2 Delivery O2 Flow Rate FiO2 08/24/24 16:30 97.8 80 16 134/97 (109) 93 97.8 08/24/24 15:34 Room Air* 0 21 Labs/Diagnostic Data Labs Test 08/24/24 17:35 Range/Units White Blood Count 8.0 4.4-10.8 10^3/uL Red Blood Count 5.09 4.5-5.90 10^6/uL Hemoglobin 15.6 13.5-17.5 g/dL Hematocrit 46.6 # 41.0-53.0 % Mean Corpuscular Volume 91.6 80.0-100.0 fL Mean Corpuscular Hemoglobin 30.7 28.0-32.0 pg Mean Corpuscular Hemoglobin Concent 33.6 32.0-36.0 g/dL Red Cell Distribution Width 12.8 11.8-14.3 % Platelet Count 228 140-450 10^3/uL Mean Platelet Volume 8.1 6.9-10.8 fL Neutrophils (%) (Auto) 64.2 37.0-80.0 % Lymphocytes (%) (Auto) 28.0 10.0-50.0 % Monocytes (%) (Auto) 5.5 0.0-12.0 % Eosinophils (%) (Auto) 1.5 0.0-7.0 % Basophils (%) (Auto) 0.8 0.0-2.0 % Neutrophils # (Auto) 5.1 1.6-8.6 10 ^3/uL Lymphocytes # (Auto) 2.2 0.4-5.4 10 ^3/uL Monocytes # (Auto) 0.4 0-1.3 10 ^3/uL Eosinophils # (Auto) 0.1 0-0.8 10 ^3/uL Basophils # (Auto) 0.1 0-0.2 10 ^3/uL Nucleated Red Blood Cells 0.2 % Prothrombin Time 10.7 9.3-11.8 sec Prothrombin Time INR 1.01 0.9-1.15 Activated Partial Thromboplast Time 26.7 24.5-34.5 SEC Sodium Level 138 136-145 mmol/L Potassium Level 4.1 3.5-5.1 mmol/L Chloride Level 105 98-107 mmol/L Carbon Dioxide Level 23 20-31 mmol/L Anion Gap 10 5-15 Blood Urea Nitrogen 14 9-23 mg/dL Creatinine 0.89 0.700-1.30 mg/dL Glomerular Filtration Rate Calc 101 >90 mL/min BUN/Creatinine Ratio 15.7 10.0-20.0 Serum Glucose 104 74-106 mg/dL Calcium Level 10.4 8.7-10.4 mg/dL Total Bilirubin 0.7 0.2-1.0 mg/dL Aspartate Amino Transferase (AST) 57 H 13-40 U/L Alanine Aminotransferase (ALT) 58 H 7-40 U/L Alkaline Phosphatase 81 46-116 U/L Total Protein 8.0 5.7-8.2 g/dL Albumin 4.9 H 3.2-4.8 g/dL Plan/Recommendation ASSESSMENT AND PLAN: ID Problem List: - Alcohol abuse - Gigantism status post craniotomy - Right upper lobe pulmonary nodule - Dyspnea - 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 male with a past medical history of alcohol abuse and gigantism status post craniotomy, who presents with a 2-month history of dyspnea. The patient reports shortness of breath without accompanying cough, fevers, weight loss, hemoptysis, or fatigue. He experiences occasional body aches but denies headaches currently, although he previously had headaches associated with alcohol intake. CT imaging revealed a 1.7 cm right upper lobe pulmonary nodule. CT-guided biopsy demonstrated spherules consistent with granulomatous disease concerning for coccidioidomycosis infection. Laboratory studies show elevated liver function tests (AST 57, ALT 58). HIV antibody test is negative. Plan: - Recommend CT chest, abdomen, and pelvis with contrast to evaluate for additional unidentified granulomas. - Recommend MRI brain with and without contrast due to recent headaches, to evaluate for possible coccidioidal meningitis. - Obtain coccidioidomycosis serologies. - Consider Aspergillus serologies and Quantiferon-TB Gold test given history of living in [place]. - Continue fluconazole 400 mg daily empirically while workup is ongoing. - Follow respiratory cultures. - Monitor liver function tests. Isolation Precautions: standard Assessment and plan was discussed with the patient as written above Plan is subject to change pending incorporation of new incoming information/diagnostics. Updates may be added as addendum at the bottom (OR TOP) of this note Thank you for interesting consult. ID will continue to follow. Please contact Infectious Disease for any questions or concerns. Victor M Sparrow M.D. [facility] Ph: ? History: The patient's chart and medications were reviewed in detail, and the patient was seen and examined. History obtained from: patient Mr. Karson Garcia is a 54 y.o. male with a past medical history of alcohol abuse and gigantism status post craniotomy, who presents with a 2-month history of dyspnea. The patient has been experiencing shortness of breath for the last two months. He denies cough, fevers, weight loss, hemoptysis, fatigue, and current headache s. He reports occasional body aches and notes previous headaches after alcohol consumption. He was admitted on 08/19/2024 for shortness of breath. CT imaging showed a 1.7 cm right upper lobe pulmonary nodule. A CT-guided biopsy was performed, and pathology returned positive for spherules consistent with granulomatous disease concerning for coccidioidomycosis infection. Review of Systems: A complete 10-system review of systems was completed and negative except as noted in the HPI or here. - CONSTITUTIONAL: Denies weight loss, fever, and chills. - HEENT: Denies changes in vision and hearing. Denies current headaches. - RESPIRATORY: Reports shortness of breath. Denies cough. - CV: Denies palpitations and chest pain. - GI: Denies abdominal pain, nausea, vomiting, and diarrhea. - : Denies dysuria and urinary frequency. - MSK: Reports occasional body aches. Denies myalgia and joint pain. - SKIN: Denies rash and pruritus. - NEUROLOGICAL: Denies syncope. - PSYCHIATRIC: Denies recent changes in mood. Denies anxiety and depression. Past Medical History: Diagnosis Date Gigantism status post craniotomy Alcohol abuse Past Surgical History: History reviewed. Status post craniotomy. Home Medications: No medications on a regular basis. 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 Tobacco Use Smoking status: Quit smoking one year ago Previous use: Smoked 1/3 pack per day for 35 years Substance and Sexual Activity Alcohol use: Drinks vodka regularly, multiple drinks daily Drug use: Denies Sexual activity: Not specified Social History Narrative Born in [facility]; has visited three times but never lived there for prolonged periods No sick contacts Social Determinants of Health Not on file. Objective: Vital Signs on Arrival: Temp: Not specified BP: Not specified Pulse: Not specified Resp: Not specified SpO2: Not specified Most Recent Vital Signs: Temp: Not specified BP: Not specified Pulse: Not specified Resp: Not specified SpO2: Not specified Admission Weight: Weight: Not specified BMI: Not specified Physical Exam: General: Tall male. NAD. Neck: Supple. No masses. HEENT: PERRL. Normal lids and conjunctiva. Moist mucous membranes. Oropharynx without lesions, exudates, or excessive erythema. Normal appearance of the external aspects of the nose and ears. Heart: Regular rhythm, normal rate. No murmur. No lower extremity edema. Regular radial pulse. Lungs: Normal respiratory effort. Clear to auscultation bilaterally. No wheezes. No crackles. Abdomen: Soft. Non-tender. Non-distended. No masses or abdominal hernia. MSK: No spinal tenderness. No joint abnormalities. No digital cyanosis. Normal strength and tone in all 4 limbs. Skin: Warm and dry, no rashes. Neuro: Alert. No facial droop or slurred speech. Extra-ocular movements intact. Sensation intact to soft touch in all 4 limbs. Psych: Appropriate mood. Full affect. Oriented to person, place, time, and situation. Lines: Active Lines None Diagnostic Studies: Available diagnostic studies were reviewed personally. Significant relevant results and findings are outlined below or addressed in the Assessment and Plan above. Pertinent Imaging: CT Chest: - Findings: Right upper lobe pulmonary nodule measuring 1.7 cm. - Biopsy: CT-guided biopsy revealed spherules consistent with granulomatous disease concerning for coccidioidomycosis infection. Laboratory Data: - Complete Blood Count (CBC): - WBC: 8 x10/L - Hemoglobin: 15.6 g/dL - Platelets: 228 x10/L - Basic Metabolic Panel (BMP): - Sodium: 138 mEq/L - BUN: 14 mg/dL - Creatinine: 0.89 mg/dL - Liver Function Tests: AST: 57 U/L ALT: 58 U/L - HIV Antibody: Negative Plan discussed with: Patient VICTOR M SPARROW MD Aug 24, 2024 19:25"
[2024-08-24 20:00] VITALS: O2SAT 96
[2024-08-24 20:37] LABS: Urine Bacteria None Seen /hpf (None Seen)
[2024-08-24 21:00] VITALS: BP 134/85; PULSE 60; RESP 19; TEMP 98.8; O2SAT 90
[2024-08-24 21:13] LABS: Urine Blood Negative /uL (Negative); Urine Clarity Clear (Clear); Urine Color Yellow (Yellow); Urine Mucus FEW (None Seen); Urine Protein, UAD Negative (Negative); Urine Specific Gravity 1.024 (1.001-1.035); Urine Squamous Epithelial Cell FEW /hpf (<5); Urine Urobilinogen Normal (Negative); Urine WBC 1 /HPF (0-3); Urine pH 5.5 (5.0-9.0)
[2024-08-25] VITALS (7 sets, daily range): BP systolic 121–134; BP diastolic 65–92; PULSE 55–73; RESP 18–20; TEMP 98.1–98.8; O2SAT 90–94
[2024-08-25] MEDS: GASTROGRAFIN 30 ML SOL ONE ×2 (08:59→09:10)
[2024-08-25] MEDS: FLUCONAZOLE 200MG/100ML 100 ML IV SCH (10:25)
[2024-08-25] MEDS: IOHEXOL 300 MG/ML 100ML BOTTLE IJ ONE (12:03)
--- NOTE | 2024-08-25 14:29 | DVH ---
Procedure: CT CT CHST AB PLV W CON-ORAL IV Study Date and Requested Errol e: 08/25/2024 12:11 PM History: DISSEMINATED COCCI; GRANULOMATOUS LESIONS Comparison: CT chest 08/22/2024 Dose: CTDI: 30.22 mGy DLP: 2123.04 mGycm Technique: Multiplanar images of the chest abdomen and pelvis are obtained with contrast. 3-D image p ostprocessing was performed and images were used for interpretation and reporting. Findings: Chest: The thyroid gland is unremarkable. Heart size is within normal limits. No evidence of aortic aneurysm or dissection. The pulmonary trun k is normal in size. Subcentimeter mediastinal lymph nodes measuring up to 0.9 cm 1.4 x 1.8 cm right posterior upper lobe nodule, abutting the pleura. Bilateral dependent atelectasis. No pneumothorax or pleural effusion. No focal airspace consolidation. The soft tissues unremarkable. Left posterior 5th rib cortical sclerosis. Multilevel anterior bridgin g osteophytes. Diffuse demineralization. Multilevel moderate to severe degenerative changes of the th oracic spine. Abdomen and pelvis: Mild hepatomegaly. Otherwise, liver, spleen, gallbladder, pancreas and left adrenal glands unremarka ble. 1.6 cm right adrenal nodule measuring up to 27 Hounsfield units. Mild nonspecific bilateral perirenal fat stranding. Otherwise, kidneys, ureters and urinary bladder u nremarkable. Prostate measures 3.6 x 4.8 by 4.7 cm. Mild gastric wall thickening which is most likely from inadequate distension. Small bowel loops are u nremarkable. Appendix is unremarkable. Moderate amount of fecal material within the colon. No evidence of intraperitoneal free air or free fluid. No evidence of aortic aneurysm or dissection. Mild atherosclerotic calcification of the aorta. No significant lymphadenopathy. Moderate size fat containing umbilical hernia. Small left and moderate right-sided fat containing ing uinal hernias. Subcutaneous edema of the midline lower back. No destructive osseous lesions are noted . Moderate to severe degenerative changes of the lumbar spine. Chronic fracture deformity of left pos terior 5th rib. Impression: No acute intrathoracic abnormalities. Redemonstration of 1.4 x 1.8 cm right posterior upper lobe nodule abutting the pleura. No acute abdominopelvic abnormalities. Moderate amount of fecal material within the colon. Moderate sized fat containing umbilical hernia with small left and moderate right-sided fat containin g inguinal hernias 1.6 cm left adrenal nodule. Adrenal protocol CT/ MRI should be considered further evaluation.
--- NOTE | 2024-08-25 15:30 | DVHPN2 ---
Assessment/Plan Assessment/Plan progress note 54 yo M with gigantism admitted for coccidoides pneumonia physical exam alert oriented gigantism clear breath sounds s1 s2 rrr abdomen soft nontender no le edema labs ekg imaging reviewed assessment and plan coccidoides PNA gigantism alcohol use fluconazole IV resume home meds thiamine and folate CIWA prtocol diet reg dvt ppx ambul Plan discussed with: Patient Date of Service: Aug 25, 2024 Billing Provider: ALEXANDER RIOJAS MD Common Visit Codes: [id number] INP/OBS CARE(HIGH) ALEXANDER RIOJAS MD Aug 25, 2024 15:30
--- NOTE | 2024-08-25 19:21 | DVHPN2 ---
Consult Progress Note Date Seen: Aug 25, 2024 Subjective Patient reports: Other (says that his SOB has improved since last hospitalization , has clear lungs , a pertubant abdomen ) Objective vital signs Vital Sign Date Time Temp Pulse Resp B/P (MAP) Pulse Ox O2 Delivery O2 Flow Rate FiO2 08/25/24 17:00 98.7 71 20 128/82 (97) 94 98.7 08/25/24 08:00 Room Air* 0 21 Total Intake and Output 08/24/24 08/24/24 08/25/24 15:00 23:00 07:00 Intake Total 1100 ml 1060 ml Output Total 600 ml 1000 ml Balance 500 ml 60 ml medications Current Medications Medications Dose Ordered Sig/Johnnie Route Start Time Stop Time Status Last Admin Dose Admin Fluconazole 100 ml @ 100 mls/hr DAILY@1000,1100 IV 08/25/24 10:00 08/25/24 17:43 100 MLS/HR Acetaminophen 650 mg Q4HP PRN PO 08/24/24 15:30 Ondansetron HCl 4 mg Q6HPRN PRN IV 08/24/24 15:30 Physical Exam: General: Tall male. NAD. Neck: Supple. No masses. HEENT: PERRL. Normal lids and conjunctiva. Moist mucous membranes. Oropharynx without lesions, exudates, or excessive erythema. Normal appearance of the external aspects of the nose and ears. Heart: Regular rhythm, normal rate. No murmur. No lower extremity edema. Regular radial pulse. Lungs: Normal respiratory effort. Clear to auscultation bilaterally. No wheezes. No crackles. Abdomen: Soft. Non-tender. Non-distended. No masses or abdominal hernia. MSK: No spinal tenderness. No joint abnormalities. No digital cyanosis. Normal strength and tone in all 4 limbs. Skin: Warm and dry, no rashes. Neuro: Alert. No facial droop or slurred speech. Extra-ocular movements intact. Sensation intact to soft touch in all 4 limbs. Psych: Appropriate mood. Full affect. Oriented to person, place, time, and situation. 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 male with a past medical history of alcohol abuse and gigantism status post craniotomy, who presents with a 2-month history of dyspnea. The patient reports shortness of breath without accompanying cough, fevers, weight loss, hemoptysis, or fatigue. He experiences occasional body aches but denies headaches currently, although he previously had headaches associated with alcohol intake. CT imaging revealed a 1.7 cm right upper lobe pulmonary nodule. CT-guided biopsy demonstrated spherules consistent with granulomatous disease concerning for coccidioidomycosis infection. Laboratory studies show elevated liver function tests (AST 57, ALT 58). HIV antibody test is negative. 08/25: patient appears clinically stable , CT abdomen chest and pelvis shows 1.4 x 1.8 cm right posterior upper lobe nodule abutting the plura , no acute intrathoracic abnormalities or acute abdominal pelvic abnormalities Plan: - Recommend MRI brain with and without contrast due to recent headaches, to evaluate for possible coccidioidal meningitis. - Obtain coccidioidomycosis serologies. - Consider Aspergillus serologies and Quantiferon-TB Gold test given history of living in [place]. - Continue fluconazole 400 mg daily empirically while workup is ongoing. - Follow respiratory cultures. - Monitor liver function tests. Isolation Precautions: standard Plan discussed with: VICTOR M Fernandez MD Aug 25, 2024 19:21
[2024-08-25] MEDS: DOCUSATE SOD 100 MG CAP PO ONE (23:57)
[2024-08-26] VITALS (8 sets, daily range): BP systolic 108–142; BP diastolic 74–91; PULSE 64–74; RESP 16–64; TEMP 97.6–98.7; O2SAT 91–96
[2024-08-26 07:36] LABS: Anion Gap 9 (5-15); Carbon Dioxide 28 mmol/L (20-31); Chloride 101 mmol/L (98-107); Potassium 4.1 mmol/L (3.5-5.1); Sodium 138 mmol/L (136-145)
[2024-08-26 07:38] LABS: Calcium 9.6 mg/dL (8.7-10.4)
[2024-08-26 07:42] LABS: BUN/Creatinine Ratio 11.6 (10.0-20.0); Blood Urea Nitrogen 11 mg/dL (9-23); Glucose 94 mg/dL (74-106)
[2024-08-26] MEDS ORDERED: DOCUSATE SOD 100 MG CAP PO SCH (10:00)
[2024-08-26] MEDS: POLYETHYLENE GLYCOL 17 GM PWDR PO ONE (10:26)
[2024-08-26] MEDS: diphenhdrAMINE HCL 50 MG/1 ML VL IV ONE (11:59)
--- NOTE | 2024-08-26 15:33 | DVHPN2 ---
Assessment/Plan Assessment/Plan progress note 54 yo M with gigantism admitted for coccidoides pneumonia seen today during rounds. seen by ID pending workup. saw pt vaping, educated on current lung infection and risk of vaping physical exam alert oriented gigantism clear breath sounds s1 s2 rrr abdomen soft nontender no le edema labs ekg imaging reviewed assessment and plan coccidoides PNA gigantism alcohol use tobacco use fluconazole IV resume home meds thiamine and folate CIWA prtocol NRT smoking cessation diet reg dvt ppx ambul Plan discussed with: Patient My Orders Orders - ALEXANDER RIOJAS MD Procedure Category Date Status Time Polyethylene Glycol PHA 08/27/24 In Process 17g Powder (Miralax 10:00 Date of Service: Aug 26, 2024 Billing Provider: ALEXANDER RIOJAS MD Common Visit Codes: [id number] INP/OBS CARE(HIGH) Secondary Visit Codes: [id number] CHNG SMOKING 3-10m ALEXANDER RIOJAS MD Aug 26, 2024 15:33
--- NOTE | 2024-08-26 15:49 | DVHPN2 ---
Consult Progress Note Date Seen: Aug 26, 2024 Subjective Patient reports: Feels better (no headaches, no nausea) Objective vital signs Vital Sign Date Time Temp Pulse Resp B/P (MAP) Pulse Ox O2 Delivery O2 Flow Rate FiO2 08/26/24 13:00 97.8 72 16 124/91 (102) 93 97.8 08/26/24 08:00 Room Air* 0 21 Total Intake and Output 08/25/24 08/25/24 08/26/24 15:00 23:00 07:00 Intake Total 100 ml 1900 ml 790 ml Output Total 1200 ml 1800 ml Balance 100 ml 700 ml -1010 ml medications Current Medications Medications Dose Ordered Sig/Johnnie Route Start Time Stop Time Status Last Admin Dose Admin Fluconazole 100 ml @ 100 mls/hr DAILY@1000,1100 IV 08/25/24 10:00 08/26/24 13:37 100 MLS/HR Acetaminophen 650 mg Q4HP PRN PO 08/24/24 15:30 Ondansetron HCl 4 mg Q6HPRN PRN IV 08/24/24 15:30 Polyethylene Glycol 17 gm DAILY PO 08/27/24 10:00 PHYSICAL EXAM: - GENERAL: Alert and oriented x 3. No acute distress. Well-nourished. ? - EYES: EOMI. Anicteric. ?- HENT: Moist mucous membranes. No scleral icterus. No cervical lymphadenopathy. ?- LUNGS: Clear to auscultation bilaterally. No accessory muscle use.? - CARDIOVASCULAR: Regular rate and rhythm. No murmur. No JVD.? - ABDOMEN: Soft, non-tender and non-distended. No palpable masses.? - EXTREMITIES: No edema. Non-tender.?SKIN: No rashes or lesions. Warm. ? - NEUROLOGIC: No focal neurological deficits. CN II-XII grossly intact, but not individually tested.? - PSYCHIATRIC: Cooperative. Appropriate mood and affect. 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 male with a past medical history of alcohol abuse and gigantism status post craniotomy, who presents with a 2-month history of dyspnea. The patient reports shortness of breath without accompanying cough, fevers, weight loss, hemoptysis, or fatigue. He experiences occasional body aches but denies headaches currently, although he previously had headaches associated with alcohol intake. CT imaging revealed a 1.7 cm right upper lobe pulmonary nodule. CT-guided biopsy demonstrated spherules consistent with granulomatous disease concerning for coccidioidomycosis infection. Laboratory studies show elevated liver function tests (AST 57, ALT 58). HIV antibody test is negative. 08/25: patient appears clinically stable , CT abdomen chest and pelvis shows 1.4 x 1.8 cm right posterior upper lobe nodule abutting the plura , no acute intrathoracic abnormalities or acute abdominal pelvic abnormalities Plan: - Recommend MRI brain with and without contrast due to recent headaches, to evaluate for possible coccidioidal meningitis. - Obtain coccidioidomycosis serologies. - Consider Aspergillus serologies and Quantiferon-TB Gold test given history of living in [place]. - Continue fluconazole 400 mg daily empirically while workup is ongoing. - Follow respiratory cultures. - Monitor liver function tests. Isolation Precautions: standard Plan discussed with: Patient VICTOR M SPARROW MD Aug 26, 2024 15:49
[2024-08-27] VITALS (7 sets, daily range): BP systolic 121–144; BP diastolic 78–104; PULSE 56–76; RESP 16–18; TEMP 98.1–99; O2SAT 94–97
[2024-08-27] MEDS: POLYETHYLENE GLYCOL 17 GM PWDR PO SCH (10:17)
--- NOTE | 2024-08-27 13:39 | DVHPN2 ---
Assessment/Plan Assessment/Plan progress note 54 yo M with gigantism admitted for coccidoides pneumonia seen today during rounds. pending MRI physical exam alert oriented gigantism clear breath sounds s1 s2 rrr abdomen soft nontender no le edema labs ekg imaging reviewed assessment and plan coccidoides PNA gigantism alcohol use tobacco use fluconazole IV resume home meds thiamine and folate CIWA prtocol NRT smoking cessation diet reg dvt ppx ambul Plan discussed with: Patient Date of Service: Aug 27, 2024 Billing Provider: ALEXANDER RIOJAS MD Common Visit Codes: [id number] INP/OBS CARE(HIGH) ALEXANDER RIOJAS MD Aug 27, 2024 13:39
[2024-08-27] MEDS: NICOTINE 7MG/24HR TOPICAL PATCH TD ONE (17:11)
[2024-08-28] VITALS (7 sets, daily range): BP systolic 121–136; BP diastolic 77–91; PULSE 66–80; RESP 18–20; TEMP 97.8–99.1; O2SAT 93–96
[2024-08-28] MEDS: NICOTINE 7MG/24HR TOPICAL PATCH TD SCH (09:38)
--- NOTE | 2024-08-28 11:46 | DVHPN2 ---
Progress Note Date Seen: Aug 28, 2024 Medical Necessity Reason Pt with a Central, PICC or Fol: No Subjective Patient reports: No new complaints Review of Systems: HEENT:Normal, CVS:Normal, RESPIRATORY:Normal, GI:Normal, :Normal, MSK:Normal, NEURO:Normal Objective vital signs Vital Sign Date Time Temp Pulse Resp B/P (MAP) Pulse Ox O2 Delivery O2 Flow Rate FiO2 08/28/24 09:12 97.9 79 18 132/91 (105) 93 97.9 08/28/24 08:10 Room Air* 0 21 Total Intake and Output 08/27/24 08/27/24 08/28/24 15:00 23:00 07:00 Intake Total 200 ml 660 ml 850 ml Output Total 600 ml Balance 200 ml 60 ml 850 ml medications Current Medications Medications Dose Ordered Sig/Johnnie Route Start Time Stop Time Status Last Admin Dose Admin Fluconazole 100 ml @ 100 mls/hr DAILY@1000,1100 IV 08/25/24 10:00 08/28/24 09:41 100 MLS/HR Acetaminophen 650 mg Q4HP PRN PO 08/24/24 15:30 Ondansetron HCl 4 mg Q6HPRN PRN IV 08/24/24 15:30 Polyethylene Glycol 17 gm DAILY PO 08/27/24 10:00 08/28/24 09:37 17 GM Nicotine 1 patch DAILY TD 08/28/24 10:00 08/28/24 09:38 1 PATCH Examination: GENERAL:Normal, HEENT:Normal, NECK:Normal, LUNGS:Normal, CVS:Normal, ABDOMEN:Normal, MSK:Normal, SKIN:Normal, NEURO:Normal, :Normal laboratory and microbiology Laboratory Tests 08/26/24 05:48 08/24/24 17:35 Test 08/26/24 05:48 Range/Units Serum Glucose 94 74-106 mg/dL Problem List/Assessment/Plan Problem List/Assessment/Plan * Pneumonia secondary to coccidioidomycosis. The patient will be placed on IV fluconazole and Infectious Disease consult be obtained. * History of gigantism, status post craniotomy: MRI brain with contrast * History of alcohol abuse. * transaminitis Advance care planning, the patient is a full code: 19 mins Plan discussed with: Patient My Orders My Orders Orders - EDENILSON ELLIS MD Procedure Category Date Status Time Lorazepam 2mg/Ml Inj PHA 3/3/25 Transmitted (Ativan Inj) 11:45 Date of Service: Aug 28, 2024 Billing Provider: EDENILSON ELLIS MD Common Visit Codes: [id number] INP/OBS CARE(HIGH) Secondary Visit Codes: [id number] CARE PLAN 30 MINUTES EDENILSON ELLIS MD Aug 28, 2024 11:46
[2024-08-29] VITALS (7 sets, daily range): BP systolic 100–145; BP diastolic 46–85; PULSE 66–82; RESP 17–20; TEMP 98.2–99; O2SAT 92–95
[2024-08-29] MEDS ORDERED: GADOTERATE MEG 10 MMOL/20ml INJ (0.5MMOL/ml) IV ONE (11:47)
[2024-08-29] MEDS: LORazepam 2MG/ML-1ML VIAL IV ONE (11:51)
--- NOTE | 2024-08-29 12:13 | DVHPN2 ---
Progress Note Date Seen: Aug 29, 2024 Medical Necessity Reason Pt with a Central, PICC or Fol: No Subjective Patient reports: No new complaints Review of Systems: HEENT:Normal, CVS:Normal, RESPIRATORY:Normal, GI:Normal, :Normal, MSK:Normal, NEURO:Normal Objective vital signs Vital Sign Date Time Temp Pulse Resp B/P (MAP) Pulse Ox O2 Delivery O2 Flow Rate FiO2 08/29/24 08:34 98.9 82 18 145/85 (105) 95 98.9 08/28/24 20:00 Room Air* 0 21 Total Intake and Output 08/28/24 08/28/24 08/29/24 15:00 23:00 07:00 Intake Total 200 ml 1200 ml 900 ml Output Total 1800 ml Balance 200 ml 1200 ml -900 ml medications Current Medications Medications Dose Ordered Sig/Johnnie Route Start Time Stop Time Status Last Admin Dose Admin Fluconazole 100 ml @ 100 mls/hr DAILY@1000,1100 IV 08/25/24 10:00 08/29/24 11:14 100 MLS/HR Acetaminophen 650 mg Q4HP PRN PO 08/24/24 15:30 Ondansetron HCl 4 mg Q6HPRN PRN IV 08/24/24 15:30 Polyethylene Glycol 17 gm DAILY PO 08/27/24 10:00 08/29/24 09:47 17 GM Nicotine 1 patch DAILY TD 08/28/24 10:00 08/29/24 09:48 1 PATCH Examination: GENERAL:Normal, HEENT:Normal, NECK:Normal, LUNGS:Normal, CVS:Normal, ABDOMEN:Normal, MSK:Normal, SKIN:Normal, NEURO:Normal, :Normal laboratory and microbiology Laboratory Tests 08/26/24 05:48 08/24/24 17:35 Test 08/26/24 05:48 Range/Units Serum Glucose 94 74-106 mg/dL Problem List/Assessment/Plan Problem List/Assessment/Plan * Pneumonia secondary to coccidioidomycosis. The patient will be placed on IV fluconazole and Infectious Disease consult be obtained. * History of gigantism, status post craniotomy: MRI brain with contrast * History of alcohol abuse. * transaminitis Advance care planning, the patient is a full code: 19 mins Plan discussed with: Other (rn) Date of Service: Aug 29, 2024 Billing Provider: EDENILSON ELLIS MD Common Visit Codes: [id number] INP/OBS CARE(HIGH) EDENILSON ELLIS MD Aug 29, 2024 12:13
--- NOTE | 2024-08-29 12:42 | DVH ---
PROCEDURE: MRI BRAIN HEAD WO W CONTRAST INDICATION: evaluate for hydrocephalis, infarcts, meningitis (fungal not bact EXAM DATE: 08/29/2024 11:57 AM COMPARISON: None TECHNIQUE: MRI of the brain with and without 20 cc clariscan intravenous contrast. FINDINGS: Diffusion weighted images of the brain demonstrate no evidence of acute infarction. There is no evidence of acute intracranial hemorrhage, extra-axial collection, mass effect, midline s hift, herniation or hydrocephalus. The ventricles, sulci and cisterns appear age appropriate. Moderate changes of chronic microvascular ischemic disease. Empty sella. No abnormal enhancement. There are no signal abnormalities on the susceptibility weighted sequences. The major vascular flow voids are present. Chronic ethmoid and maxillary sinus disease. The surrounding soft tissues and osseous structures are unremarkable. IMPRESSION: 1. No evidence of acute infarction, intracranial hemorrhage, mass effect or hydrocephalus. Moderate c hanges of chronic microvascular ischemic disease. Empty sella. Chronic pansinusitis. No abnormal enh ancement. HS:Y
--- NOTE | 2024-08-29 20:47 | DVHPN2 ---
Consult Progress Note Date Seen: Aug 27, 2024 Subjective Patient reports: Other (breathing well on room air , no photophobia , no neck stiffness ) Objective vital signs Vital Sign Date Time Temp Pulse Resp B/P (MAP) Pulse Ox O2 Delivery O2 Flow Rate FiO2 08/29/24 17:00 98.3 75 18 130/84 (99) 92 98.3 08/29/24 08:10 Room Air* 0 21 Total Intake and Output 08/28/24 08/28/24 08/29/24 15:00 23:00 07:00 Intake Total 200 ml 1200 ml 900 ml Output Total 1800 ml Balance 200 ml 1200 ml -900 ml medications Current Medications Medications Dose Ordered Sig/Johnnie Route Start Time Stop Time Status Last Admin Dose Admin Fluconazole 100 ml @ 100 mls/hr DAILY@1000,1100 IV 08/25/24 10:00 08/29/24 11:14 100 MLS/HR Acetaminophen 650 mg Q4HP PRN PO 08/24/24 15:30 Ondansetron HCl 4 mg Q6HPRN PRN IV 08/24/24 15:30 Polyethylene Glycol 17 gm DAILY PO 08/27/24 10:00 08/29/24 09:47 17 GM Nicotine 1 patch DAILY TD 08/28/24 10:00 08/29/24 09:48 1 PATCH PHYSICAL EXAM: - GENERAL: Alert and oriented x 3. No acute distress. Well-nourished. ? - EYES: EOMI. Anicteric. ?- HENT: Moist mucous membranes. No scleral icterus. No cervical lymphadenopathy. ?- LUNGS: Clear to auscultation bilaterally. No accessory muscle use.? - CARDIOVASCULAR: Regular rate and rhythm. No murmur. No JVD.? - ABDOMEN: Soft, non-tender and non-distended. No palpable masses.? - EXTREMITIES: No edema. Non-tender.?SKIN: No rashes or lesions. Warm. ? - NEUROLOGIC: No focal neurological deficits. CN II-XII grossly intact, but not individually tested.? - PSYCHIATRIC: Cooperative. Appropriate mood and affect. 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 male with a past medical history of alcohol abuse and gigantism status post craniotomy, who presents with a 2-month history of dyspnea. The patient reports shortness of breath without accompanying cough, fevers, weight loss, hemoptysis, or fatigue. He experiences occasional body aches but denies headaches currently, although he previously had headaches associated with alcohol intake. CT imaging revealed a 1.7 cm right upper lobe pulmonary nodule. CT-guided biopsy demonstrated spherules consistent with granulomatous disease concerning for coccidioidomycosis infection. Laboratory studies show elevated liver function tests (AST 57, ALT 58). HIV antibody test is negative. 08/25: patient appears clinically stable , CT abdomen chest and pelvis shows 1.4 x 1.8 cm right posterior upper lobe nodule abutting the plura , no acute intrathoracic abnormalities or acute abdominal pelvic abnormalities 08/27: awaiting MRI of brain to be completed , Ct of chest shows only a solitary granuloma Plan: - Recommend MRI brain with and without contrast due to recent headaches, to evaluate for possible coccidioidal meningitis. - Obtain coccidioidomycosis serologies. - Consider Aspergillus serologies and Quantiferon-TB Gold test given history of living in [place]. - Continue fluconazole 400 mg daily empirically while workup is ongoing. - Follow respiratory cultures. - Monitor liver function tests. Isolation Precautions: standard Plan discussed with: VICTOR M Fernandez MD Aug 29, 2024 20:46
--- NOTE | 2024-08-29 20:47 | DVHPN2 ---
Consult Progress Note Date Seen: Aug 29, 2024 Subjective Patient reports: Other (NIV is negative , tolerating fluconazol , MRI was done ) Objective vital signs Vital Sign Date Time Temp Pulse Resp B/P (MAP) Pulse Ox O2 Delivery O2 Flow Rate FiO2 08/29/24 17:00 98.3 75 18 130/84 (99) 92 98.3 08/29/24 08:10 Room Air* 0 21 Total Intake and Output 08/28/24 08/28/24 08/29/24 15:00 23:00 07:00 Intake Total 200 ml 1200 ml 900 ml Output Total 1800 ml Balance 200 ml 1200 ml -900 ml medications Current Medications Medications Dose Ordered Sig/Johnnie Route Start Time Stop Time Status Last Admin Dose Admin Fluconazole 100 ml @ 100 mls/hr DAILY@1000,1100 IV 08/25/24 10:00 08/29/24 11:14 100 MLS/HR Acetaminophen 650 mg Q4HP PRN PO 08/24/24 15:30 Ondansetron HCl 4 mg Q6HPRN PRN IV 08/24/24 15:30 Polyethylene Glycol 17 gm DAILY PO 08/27/24 10:00 08/29/24 09:47 17 GM Nicotine 1 patch DAILY TD 08/28/24 10:00 08/29/24 09:48 1 PATCH PHYSICAL EXAM: - GENERAL: Alert and oriented x 3. No acute distress. Well-nourished. ? - EYES: EOMI. Anicteric. ?- HENT: Moist mucous membranes. No scleral icterus. No cervical lymphadenopathy. ?- LUNGS: Clear to auscultation bilaterally. No accessory muscle use.? - CARDIOVASCULAR: Regular rate and rhythm. No murmur. No JVD.? - ABDOMEN: Soft, non-tender and non-distended. No palpable masses.? - EXTREMITIES: No edema. Non-tender.?SKIN: No rashes or lesions. Warm. ? - NEUROLOGIC: No focal neurological deficits. CN II-XII grossly intact, but not individually tested.? - PSYCHIATRIC: Cooperative. Appropriate mood and affect. 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 male with a past medical history of alcohol abuse and gigantism status post craniotomy, who presents with a 2-month history of dyspnea. The patient reports shortness of breath without accompanying cough, fevers, weight loss, hemoptysis, or fatigue. He experiences occasional body aches but denies headaches currently, although he previously had headaches associated with alcohol intake. CT imaging revealed a 1.7 cm right upper lobe pulmonary nodule. CT-guided biopsy demonstrated spherules consistent with granulomatous disease concerning for coccidioidomycosis infection. Laboratory studies show elevated liver function tests (AST 57, ALT 58). HIV antibody test is negative. 08/25: patient appears clinically stable , CT abdomen chest and pelvis shows 1.4 x 1.8 cm right posterior upper lobe nodule abutting the plura , no acute intrathoracic abnormalities or acute abdominal pelvic abnormalities 3: awaiting MRI of brain to be completed , Ct of chest shows only a solitary granuloma 08/29:MRI was done and shows no evidence of acute infection , intracranial hemorrhage , mass effect or hyrocephillis , chronic clark cystitis is present . no concerning MRI findings Plan: - follow up on cocci antibody tiders as outpatient - recommend 6 month course minimum of fluconazol 400 mg daily , recommend discharge patient on 30 days of 400mg floconazol daily - follow up with infectious disease in 4 weeks to monitor EKG and labs to determine duration of therapy - Recommend MRI brain with and without contrast due to recent headaches, to evaluate for possible coccidioidal meningitis. - Obtain coccidioidomycosis serologies. - Consider Aspergillus serologies and Quantiferon-TB Gold test given history of living in [place]. - Continue fluconazole 400 mg daily empirically while workup is ongoing. - Follow respiratory cultures. - Monitor liver function tests. Isolation Precautions: standard Plan discussed with: VICTOR M Fernandez MD Aug 29, 2024 20:47
--- NOTE | 2024-08-29 20:47 | DVHPN2 ---
Consult Progress Note Date Seen: Aug 28, 2024 Subjective Patient reports: Other (is breathing well , no headaches or acute events overnight ) Objective vital signs Vital Sign Date Time Temp Pulse Resp B/P (MAP) Pulse Ox O2 Delivery O2 Flow Rate FiO2 08/29/24 17:00 98.3 75 18 130/84 (99) 92 98.3 08/29/24 08:10 Room Air* 0 21 Total Intake and Output 08/28/24 08/28/24 08/29/24 15:00 23:00 07:00 Intake Total 200 ml 1200 ml 900 ml Output Total 1800 ml Balance 200 ml 1200 ml -900 ml medications Current Medications Medications Dose Ordered Sig/Johnnie Route Start Time Stop Time Status Last Admin Dose Admin Fluconazole 100 ml @ 100 mls/hr DAILY@1000,1100 IV 08/25/24 10:00 08/29/24 11:14 100 MLS/HR Acetaminophen 650 mg Q4HP PRN PO 08/24/24 15:30 Ondansetron HCl 4 mg Q6HPRN PRN IV 08/24/24 15:30 Polyethylene Glycol 17 gm DAILY PO 08/27/24 10:00 08/29/24 09:47 17 GM Nicotine 1 patch DAILY TD 08/28/24 10:00 08/29/24 09:48 1 PATCH PHYSICAL EXAM: - GENERAL: Alert and oriented x 3. No acute distress. Well-nourished. ? - EYES: EOMI. Anicteric. ?- HENT: Moist mucous membranes. No scleral icterus. No cervical lymphadenopathy. ?- LUNGS: Clear to auscultation bilaterally. No accessory muscle use.? - CARDIOVASCULAR: Regular rate and rhythm. No murmur. No JVD.? - ABDOMEN: Soft, non-tender and non-distended. No palpable masses.? - EXTREMITIES: No edema. Non-tender.?SKIN: No rashes or lesions. Warm. ? - NEUROLOGIC: No focal neurological deficits. CN II-XII grossly intact, but not individually tested.? - PSYCHIATRIC: Cooperative. Appropriate mood and affect. 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 male with a past medical history of alcohol abuse and gigantism status post craniotomy, who presents with a 2-month history of dyspnea. The patient reports shortness of breath without accompanying cough, fevers, weight loss, hemoptysis, or fatigue. He experiences occasional body aches but denies headaches currently, although he previously had headaches associated with alcohol intake. CT imaging revealed a 1.7 cm right upper lobe pulmonary nodule. CT-guided biopsy demonstrated spherules consistent with granulomatous disease concerning for coccidioidomycosis infection. Laboratory studies show elevated liver function tests (AST 57, ALT 58). HIV antibody test is negative. 08/25: patient appears clinically stable , CT abdomen chest and pelvis shows 1.4 x 1.8 cm right posterior upper lobe nodule abutting the plura , no acute intrathoracic abnormalities or acute abdominal pelvic abnormalities 3/: awaiting MRI of brain to be completed , Ct of chest shows only a solitary granuloma 33: Plan: - Recommend MRI brain with and without contrast due to recent headaches, to evaluate for possible coccidioidal meningitis. - Obtain coccidioidomycosis serologies. - Consider Aspergillus serologies and Quantiferon-TB Gold test given history of living in [place]. - Continue fluconazole 400 mg daily empirically while workup is ongoing. - Follow respiratory cultures. - Monitor liver function tests. Isolation Precautions: standard Plan discussed with: VICTOR M Fernandez MD Aug 29, 2024 20:47
[2024-08-30 01:00] VITALS: BP 120/74; PULSE 70; RESP 19; TEMP 98.3; O2SAT 94
[2024-08-30 05:00] VITALS: BP 118/83; PULSE 58; RESP 18; TEMP 98.2; O2SAT 94
[2024-08-30 08:00] VITALS: PULSE 71; RESP 20; O2SAT 99
[2024-08-30 09:00] VITALS: BP 120/78; PULSE 71; RESP 20; TEMP 98; O2SAT 99
[2024-08-30] MEDS ORDERED: FLUC200T50 PO (11:35)
--- NOTE | 2024-08-30 11:37 | DVHDS2 ---
Discharge Summary Date of Admission Aug 24, 2024 at 15:01 Date of Discharge: Aug 30, 2024 Labs/Diagnostic Data: Laboratory Results Test 08/26/24 05:48 08/25/24 14:28 08/24/24 20:07 08/24/24 18:00 Sodium Level 138 mmol/L (136-145) Potassium Level 4.1 mmol/L (3.5-5.1) Chloride Level 101 mmol/L (98-107) Carbon Dioxide Level 28 mmol/L (20-31) Anion Gap 9 (5-15) Blood Urea Nitrogen 11 mg/dL (9-23) Creatinine 0.95 mg/dL (0.700-1.30) Glomerular Filtration Rate Calc 94 mL/min (>90) BUN/Creatinine Ratio 11.6 (10.0-20.0) Serum Glucose 94 mg/dL (74-106) Calcium Level 9.6 mg/dL (8.7-10.4) HIV (1&2) Antibody Negative (Negative) Urine Color Yellow (Yellow) Urine Clarity Clear (Clear) Urine pH 5.5 (5.0-9.0) Urine Specific [place] 1.024 (1.001-1.035) Urine Protein Negative (Negative) Urine Ketones Negative (Negative) Urine Blood Negative /uL (Negative) Urine Nitrite Negative (Negative) Urine Bilirubin Negative (Negative) Urine Urobilinogen Normal mg/dL (Negative) Urine Leukocyte Esterase Negative /uL (Negative) Urine RBC 1 /hpf (0 - 3) Urine Microscopic WBC 1 /HPF (0-3) Urine Squamous Epithelial Cells Few /hpf (<5) Urine Bacteria None seen /hpf (None Seen) Urine Mucus Few (None Seen) Urine Glucose Normal mg/dL (Normal) Test 08/24/24 17:35 White Blood Count 8.0 10^3/uL (4.4-10.8) Red Blood Count 5.09 10^6/uL (4.5-5.90) Hemoglobin 15.6 g/dL (13.5-17.5) Hematocrit 46.6 % (41.0-53.0) Mean Corpuscular Volume 91.6 fL (80.0-100.0) Mean Corpuscular Hemoglobin 30.7 pg (28.0-32.0) Mean Corpuscular Hemoglobin Concent 33.6 g/dL (32.0-36.0) Red Cell Distribution Width 12.8 % (11.8-14.3) Platelet Count 228 10^3/uL (140-450) Mean Platelet Volume 8.1 fL (6.9-10.8) Neutrophils (%) (Auto) 64.2 % (37.0-80.0) Lymphocytes (%) (Auto) 28.0 % (10.0-50.0) Monocytes (%) (Auto) 5.5 % (0.0-12.0) Eosinophils (%) (Auto) 1.5 % (0.0-7.0) Basophils (%) (Auto) 0.8 % (0.0-2.0) Neutrophils # (Auto) 5.1 10 ^3/uL (1.6-8.6) Lymphocytes # (Auto) 2.2 10 ^3/uL (0.4-5.4) Monocytes # (Auto) 0.4 10 ^3/uL (0-1.3) Eosinophils # (Auto) 0.1 10 ^3/uL (0-0.8) Basophils # (Auto) 0.1 10 ^3/uL (0-0.2) Nucleated Red Blood Cells 0.2 % Prothrombin Time 10.7 sec (9.3-11.8) Prothrombin Time INR 1.01 (0.9-1.15) Activated Partial Thromboplast Time 26.7 SEC (24.5-34.5) Total Bilirubin 0.7 mg/dL (0.2-1.0) Aspartate Amino Transferase (AST) 57 U/L (13-40) Alanine Aminotransferase (ALT) 58 U/L (7-40) Alkaline Phosphatase 81 U/L (46-116) Total Protein 8.0 g/dL (5.7-8.2) Albumin 4.9 g/dL (3.2-4.8) Other Laboratory Tests 08/26/24 05:48 08/24/24 17:35 Brief Hx & Hospital Course: see dictated note Condition at Discharge: Good Final Diagnosis/Problems List coccidiodomycosis Discharge Disposition: Home Discharge Instruct/Medications Diet: Cardiac 2g Na,low cholest Activity: No Restrictions, As Tolerated Follow Up/Referral: fu with dr Gan in 1 wk Medications: resume home meds script to pharmacy Discharge Statement: "Patient was advised to return to the ER or call 911 if any headaches, dizziness, shortness of breath, chest pain, abdominal pain, bleeding, fevers, or worsening of medical condition. Patient was counseled about treatment plan, medications, possible side effects, patientverbalized understanding. All questions were answered to the best of my ability. This discharge took greater then 30 minutes in planning, reviewing documentation, counseling the patient, and discussing with other team members." ASSESSMENT ASSESSMENT Assessment coccidiodomycosis Date of Service: Aug 30, 2024 Billing Provider: EDENILSON ELLIS MD Common Visit Codes: 26620-XWL/OBS DISCH DAY >30min EDENILSON ELLIS MD Aug 30, 2024 11:37
--- NOTE | 2024-08-30 11:55 | DVHDS ---
DATE OF DISCHARGE: 08/30/2024 HISTORY OF PRESENT ILLNESS: The patient is a 54-year-old gentleman who was admitted after he had shortness of breath and was diagnosed with pulmonary coccidioidomycosis. The patient has a history of gigantism with previous craniotomy. HOSPITAL COURSE: The patient had a CT of chest, abdomen and pelvis that showed the right posterior lobe upper lobe nodule. The patient also had umbilical hernia. The patient had an MRI of the head that showed no acute infarction. There was empty sella. The patient was seen in ID consult by Dr. Hernandez, who recommended that the patient will be placed on fluconazole 400 mg daily for 30 days. He will follow up with him in the next 1-2 weeks. His Aspergillus serologies are currently pending. The patient's HIV was negative. FINAL DIAGNOSES: Therefore, * Pulmonary coccidioidomycosis with pneumonia. * Gigantism, status post craniotomy. * Transaminitis. * Alcohol abuse. * Morbid obesity. Time spent in discharge planning and review of plan with the patient and nursing was 39 minutes. MD ÁNGEL Johnson/JENNIFER TID: [id number] RECEIPT: [id number]
[2024-08-30 13:00] VITALS: BP 120/80; PULSE 71; RESP 20; TEMP 97.9; O2SAT 99
[2024-08-30 13:08] LABS: Aspergillus flavus Negative (Neg:<1:1); Aspergillus fumigatus Negative (Neg:<1:1); Aspergillus niger Negative (Neg:<1:1)
[2024-08-30 14:31] VITALS: BP 120/78; PULSE 71; RESP 20; TEMP 36.6; O2SAT 99
[2024-08-30 19:06] LABS: Coccidioides CF Antibody <1:2 (<1:2)
--- NOTE | 2024-08-30 21:49 | DVHPN2 ---
Consult Progress Note Date Seen: Aug 30, 2024 Subjective Patient reports: Feels better (no fever or chills, no nausea) Objective vital signs Vital Sign Date Time Temp Pulse Resp B/P (MAP) Pulse Ox O2 Delivery O2 Flow Rate FiO2 08/30/24 14:31 36.6 71 20 99 08/30/24 13:00 120/80 (93) 08/30/24 08:00 Room Air* 0 21 Total Intake and Output 08/29/24 08/29/24 08/30/24 15:00 23:00 07:00 Intake Total 200 ml 800 ml 1400 ml Balance 200 ml 800 ml 1400 ml medications PHYSICAL EXAM: - GENERAL: Alert and oriented x 3. No acute distress. Well-nourished. ? - EYES: EOMI. Anicteric. ?- HENT: Moist mucous membranes. No scleral icterus. No cervical lymphadenopathy. ?- LUNGS: Clear to auscultation bilaterally. No accessory muscle use.? - CARDIOVASCULAR: Regular rate and rhythm. No murmur. No JVD.? - ABDOMEN: Soft, non-tender and non-distended. No palpable masses.? - EXTREMITIES: No edema. Non-tender.?SKIN: No rashes or lesions. Warm. ? - NEUROLOGIC: No focal neurological deficits. CN II-XII grossly intact, but not individually tested.? - PSYCHIATRIC: Cooperative. Appropriate mood and affect. 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 male with a past medical history of alcohol abuse and gigantism status post craniotomy, who presents with a 2-month history of dyspnea. The patient reports shortness of breath without accompanying cough, fevers, weight loss, hemoptysis, or fatigue. He experiences occasional body aches but denies headaches currently, although he previously had headaches associated with alcohol intake. CT imaging revealed a 1.7 cm right upper lobe pulmonary nodule. CT-guided biopsy demonstrated spherules consistent with granulomatous disease concerning for coccidioidomycosis infection. Laboratory studies show elevated liver function tests (AST 57, ALT 58). HIV antibody test is negative. 08/25: patient appears clinically stable , CT abdomen chest and pelvis shows 1.4 x 1.8 cm right posterior upper lobe nodule abutting the plura , no acute intrathoracic abnormalities or acute abdominal pelvic abnormalities 08/27: awaiting MRI of brain to be completed , Ct of chest shows only a solitary granuloma 08/29:MRI was done and shows no evidence of acute infection , intracranial hemorrhage , mass effect or hyrocephillis , chronic clark cystitis is present . no concerning MRI findings Plan: - follow up on cocci antibody tiders as outpatient - recommend 6 month course minimum of fluconazol 400 mg daily , recommend discharge patient on 30 days of 400mg floconazol daily - follow up with infectious disease in 4 weeks to monitor EKG and labs to determine duration of therapy - Recommend MRI brain with and without contrast due to recent headaches, to evaluate for possible coccidioidal meningitis. - Obtain coccidioidomycosis serologies. - Consider Aspergillus serologies and Quantiferon-TB Gold test given history of living in [place]. - Continue fluconazole 400 mg daily empirically while workup is ongoing. - Follow respiratory cultures. - Monitor liver function tests. Isolation Precautions: standard Plan discussed with: Patient VICTOR M SPARROW MD Aug 30, 2024 21:49
== END 2024-08-30 15:00 | disposition home or self-care (01) | DRG 137 ==
LOC: OVERFLOW 15:01 → WEST WING 15:11
PROVIDERS: ADMIT Student in an Organized Health Care Education/Training Program; ATTEND Student in an Organized Health Care Education/Training Program
DX: B38.2 Pulmonary coccidioidomycosis, unspecified (principal); E22.0 Acromegaly and pituitary gigantism; E66.01 Morbid (severe) obesity due to excess calories; R79.89 Other specified abnormal findings of blood chemistry; F10.10 Alcohol abuse, uncomplicated; R74.01 Elevation of levels of liver transaminase levels; Y90.9 Presence of alcohol in blood, level not specified; R91.1 Solitary pulmonary nodule; K42.9 Umbilical hernia without obstruction or gangrene; Z80.8 Family history of malignant neoplasm of other organs or systems; Z79.2 Long term (current) use of antibiotics; Z79.899 Other long term (current) drug therapy; Z79.1 Long term (current) use of non-steroidal anti-inflammatories (NSAID); Z68.42 Body mass index [BMI] 45.0-49.9, adult
CPT/HCPCS: 36415; 70553; 71046; 71260; 74177; 80048; 80053; 81001; 85025; 85610; 85730; 86606; 86635; 86703; 96365; G0378; J1450

== ENCOUNTER 2024-10-18 11:42 | Emergency (ER) | payer MEDICAID ==
[~2024-10-18] VITALS: Ht 177.8 cm; Wt 144.6 kg
[~2024-10-18 11:42] MED LIST changes: +FLUC200T50 PO
--- NOTE | 2024-10-18 13:29 | ED.PDOC ---
GI ASSESSMENT HPI Comments 54 year old male presents to the ED with chief complaint of abdominal pain. Patient reports that he has been experiencing RUQ abdominal pain since yesterday. Patient denies any nausea, vomiting, diarrhea, fever, chills, dysuria, or hematuria. Chief Complaint: Abdominal Pain Time Seen by MD: 13:27 Primary Care Provider: DENIES Reviewed Notes: Nurses Notes, Medications, Allergies Allergies: Coded Allergies: NO KNOWN ALLERGIES (Unverified , 08/17/24) Home Meds Active Scripts Fluconazole (Fluconazole) 200 Mg Tab, 400 MG PO DAILY for 30 Days, #60 TAB Prov:EDENILSON ELLIS MD 08/30/24 Folic Acid (Folic Acid) 1 Mg Tab, 1 MG PO DAILY for 30 Days, #30 TAB Prov:GAIL MITCHELL MD 08/22/24 Thiamine Hcl (VITAMIN B-1) 100 Mg Tb, 100 MG PO DAILY for 30 Days, #30 TAB Prov:GAIL MITCHELL MD 08/22/24 Multiple Vitamin (Multivitamin) 1 Tab Tab, 1 TAB PO DAILY for 30 Days, #30 TAB Prov:GAIL MITCHELL MD 08/22/24 Doxycycline Monohydrate (Doxycycline Monohydrate) 100 Mg Tab, 100 MG PO Q12HR for 5 Days, #10 TAB Prov:GAIL MITCHELL MD 08/22/24 Information Source: Patient Mode of Arrival: Ambulatory Timing: Hours Duration: Since onset Prehospital treatment: None Quality: None Vomitus: None Stool: Normal Severity: Moderate Recent: None Recent Hx of: None Pain Location: RUQ Modifying Factors: Nothing Associated sign and symptoms: Abdominal Pain Past Medical History PAST MEDICAL HISTORY: Denies Surgical History (Other): Pituitary gland removal Family History Family History: Reviewed,noncontributory to illness Social History Smoker: Other (Vape) Alcohol: Occasionally Drugs: Denies Drug Use Lives In: Home Constitutional: denies: chills, diaphoresis, fatigue, fever, malaise, sweats, weakness, others EENTM: denies: blurred vision, double vision, ear bleeding, ear discharge, ear drainage, ear pain, ear ringing, eye pain, eye redness, hearing loss, mouth pain, mouth swelling, nasal discharge, nose bleeding, nose congestion, nose pain, photophobia, tearing, throat pain, throat swelling, voice changes, others Respiratory: denies: cough, hemoptysis, orthopnea, SOB at rest, shortness of breath, SOB with excertion, stridor, wheezing, others Cardiovascular: denies: chest pain, dizzy spells, diaphoresis, Dyspnea on exertion, edema, irregular heart beat, left arm pain, lightheadedness, palpitations, PND, syncope, others Gastrointestinal: reports: abdominal pain; denies: abdomen distended, blood streaked bowels, constipated, diarrhea, dysphagia, difficulty swallowing, hematemesis, melena, nausea, poor appetite, poor fluid intake, rectal bleeding, rectal pain, vomiting, others Genitourinary: denies: burning, dysuria, flank pain, frequency, hematuria, incontinence, penile discharge, penile sore, pain, testicle pain, testicle swelling, urgency, others Neurological: denies: dizziness, fainting, headache, left sided numbness, left sided weakness, numbness, paresthesia, pre-existing deficit, right sided numbness, right sided weakness, seizure, speech problems, tingling, tremors, weakness, others Musculoskeletal: denies: back pain, gout, joint pain, joint swelling, muscle pain, muscle stiffness, neck pain, others Integumetry: denies: bruises, change in color, change in hair/nails, dryness, laceration, lesions, lumps, rash, wounds, others Allergic/Immunocompromised: denies: Difficulty Healing, Frequent Infections, Hives, Itching, others Hematologic/Lymphatic: denies: anemia, blood clots, easy bleeding, easy bruising, swollen glands, others Endocrine: denies: excessive hunger, excessive sweating, excessive thirst, excessive urination, flushing, intolerance to cold, intolerance to heat, unexplained weight gain, unexplained weight loss, others Psychiatric: denies: anxiety, bipolar disorder, depression, hopeless, panic disorder, schizophrenia, sleepless, suicidal, others All Other Systems: Reviewed and Negative Physical Exam General Appearance: Mild Distress, Moderate Distress, Obese HEENT: Normal ENT Inspection, PERRL/EOMI Neck: Full Range of Motion, Non-Tender, Normal, Normal Inspection Respiratory: Chest Non-Tender, Lungs Clear, No Accessory Muscle Use, No Respiratory Distress, Normal Breath Sounds Cardiovascular: No Edema, No JVD, No Murmur, No Gallop, Normal Peripheral Pulses, Regular Rate/Rhythm Breast Exam: Deferred Gastrointestinal: Diffuse, Epigastric, No Organomegaly, No Pulsatile Mass, Normal Bowel Sounds, RUQ, Soft, Tenderness, Other (MORBID OBESITY) Genitalia: Deferred Pelvic: Deferred Rectal: Deferred Extremities: No calf tenderness, Normal capillary refill, Normal inspection, No rmal range of motion, Non-tender, No pedal edema Musculoskeletal : Apperance: Normal Neurologic: Alert, art consultant II-XII nml as Tested, No Motor Deficits, Normal Affect, Normal Mood, No Sensory Deficits Cerebellar Function: Normal Reflexes: Normal Skin: Dry, Normal Color, Warm Peripheral Pulses: 1+ carotid (R), 1+ carotid (L) Lymphatic: No Adenopathy Was a procedure done? Was a procedure done?: No GI differential Dx Differential Diagnosis: Cholecystitis, Constipation, Diverticular disease, Gastritis/PUD, Inflammatory BD, Pancreatitis, UTI, Dehydration, Diabetes/ DKA, Drug toxicity, Electrolyte Imbalance, Food Poisoning, Anemia X-Ray, Labs, Meds, VS Vital Signs Date Time Temp Pulse Resp B/P (MAP) Pulse Ox O2 Delivery O2 Flow Rate FiO2 10/18/24 16:23 99.0 65 18 125/84 (98) 92 99.0 10/18/24 12:03 98.2 96 18 128/88 (101) 95 98.2 Lab Test 10/18/24 15:13 10/18/24 13:33 Range/Units Urine Color Yellow Yellow Urine Clarity Clear Clear Urine pH 6.0 5.0-9.0 Urine Specific [place] 1.017 1.001-1.035 Urine Protein Negative Negative Urine Ketones Negative Negative Urine Blood Negative Negative /uL Urine Nitrite Negative Negative Urine Bilirubin Negative Negative Urine Urobilinogen 6 Negative mg/dL Urine Leukocyte Esterase Negative Negative /uL Urine RBC <1 0 - 3 /hpf Urine Microscopic WBC 2 0-3 /HPF Urine Squamous Epithelial Cells Few <5 /hpf Urine Bacteria None seen None Seen /hpf Urine Hyaline Casts Few 0 - 2 /lpf Urine Mucus Few None Seen Urine Glucose Normal Normal mg/dL White Blood Count 6.4 4.4-10.8 10^3/uL Red Blood Count 4.71 4.5-5.90 10^6/uL Hemoglobin 14.9 13.5-17.5 g/dL Hematocrit 41.9 41.0-53.0 % Mean Corpuscular Volume 89.0 80.0-100.0 fL Mean Corpuscular Hemoglobin 31.7 28.0-32.0 pg Mean Corpuscular Hemoglobin Concent 35.6 32.0-36.0 g/dL Red Cell Distribution Width 13.3 11.8-14.3 % Platelet Count 243 140-450 10^3/uL Mean Platelet Volume 8.0 6.9-10.8 fL Neutrophils (%) (Auto) 57.2 37.0-80.0 % Lymphocytes (%) (Auto) 32.7 10.0-50.0 % Monocytes (%) (Auto) 7.3 0.0-12.0 % Eosinophils (%) (Auto) 1.8 0.0-7.0 % Basophils (%) (Auto) 1.0 0.0-2.0 % Neutrophils # (Auto) 3.7 1.6-8.6 10 ^3/uL Lymphocytes # (Auto) 2.1 0.4-5.4 10 ^3/uL Monocytes # (Auto) 0.5 0-1.3 10 ^3/uL Eosinophils # (Auto) 0.1 0-0.8 10 ^3/uL Basophils # (Auto) 0.1 0-0.2 10 ^3/uL Nucleated Red Blood Cells 0.1 % Sodium Level 137 136-145 mmol/L Potassium Level 3.8 3.5-5.1 mmol/L Chloride Level 101 98-107 mmol/L Carbon Dioxide Level 27 20-31 mmol/L Anion Gap 9 5-15 Blood Urea Nitrogen 6 L 9-23 mg/dL Creatinine 0.81 0.700-1.30 mg/dL Glomerular Filtration Rate Calc 103 >90 mL/min BUN/Creatinine Ratio 7.4 L 10.0-20.0 Serum Glucose 90 74-106 mg/dL Calcium Level 9.8 8.7-10.4 mg/dL Magnesium Level 1.8 1.6-2.6 mg/dL Total Bilirubin 0.6 0.2-1.0 mg/dL Aspartate Amino Transferase (AST) 27 13-40 U/L Alanine Aminotransferase (ALT) 21 7-40 U/L Alkaline Phosphatase 77 46-116 U/L Troponin I High Sensitivity 3 L </=54 ng/L Total Protein 7.5 5.7-8.2 g/dL Albumin 4.4 3.2-4.8 g/dL Lipase 30 12-53 U/L X-Ray, Labs, Meds, VS Comment COURSE IN THE EMERGENCY DEPARTMENT PATIENT CAME IN COMPLAINING OF RIGHT-SIDED ABDOMINAL PAIN ULTRASOUND OF THE GALLBLADDER IS NORMAL CBC NORMAL CMP NEGATIVE URINE NEGATIVE TROPONIN THREE MAGNESIUM 1.8 LIPASE 30 PATIENT WILL BE DISCHARGED HOME TO FOLLOW UP WITH HIS PCP Time of 1ST Reevaluation: 14:27 Reevaluation 1ST: Improved Time of 2ND Reevaluation: 16:45 Reevaluation 2ND: Improved Consultation: PCP Patient Education/Counseling: Diagnosis, Treatment, Prognosis, Need For Follow Up Family Education/Counseling: Diagnosis, Treatment, Prognosis, Need For Follow Up, No Family Present Departure 1 Departure Time of Disposition: 16:44 Impression: Primary Impression: Right sided abdominal pain Additional Impression: Obesity (BMI 35.0-39.9 without comorbidity) Ruled Out: Cholecystitis Disposition: 01 HOME / SELF CARE / HOMELESS Condition: Fair Additional Instructions: FULL LIQUID DIET FOR THE NEXT 48 HOURS e-Prescriptions Aluminum Hydroxide-Mag Carb (Gaviscon Extra Strength) 1 Chw Chw 1 CHW PO QID for 10 Days, #40 TAB.CHEW Prov: NELSY RIOS MD 10/18/24 Metoclopramide Hcl (Reglan) 10 Mg Tab 10 MG PO TID for 10 Days, #30 TAB Prov: NELSY RIOS MD 10/18/24 Discharged With: Self Critical Care Note Critical Care Time?: No Stability Stability form required: No Heart Score Heart Score: Heart Score Response (Comments) Value History N/A 0 EKG N/A 0 Age 45-64 1 Risk Factors 1 or 2 risk factors 1 Troponin Normal limit 0 Total 2 I personally scribed for NELSY RIOS MD ([email or web address]) on 10/18/24 at 13:29. Electronically submitted by Kee Bruce ([email or web address]). NELSY RIOS MD Oct 18, 2024 13:29
[2024-10-18 13:55] LABS: Basophils # (auto) 0.1 10 ^3/uL (0-0.2); Eosinophils # (auto) 0.1 10 ^3/uL (0-0.8); Eosinophils % (auto) 1.8 % (0.0-7.0); Hematocrit 41.9 % (41.0-53.0); Hemoglobin 14.9 g/dL (13.5-17.5); Lymphocytes # (auto) 2.1 10 ^3/uL (0.4-5.4); Lymphocytes % (auto) 32.7 % (10.0-50.0); Mean Corpuscular Hemoglobin 31.7 pg (28.0-32.0); Mean Corpuscular Hgb Conc. 35.6 g/dL (32.0-36.0); Monocytes # (auto) 0.5 10 ^3/uL (0-1.3); Monocytes % (auto) 7.3 % (0.0-12.0); Neutrophils # (auto) 3.7 10 ^3/uL (1.6-8.6); Neutrophils % (auto) 57.2 % (37.0-80.0); Nucleated Red Blood Cells % 0.1 %; Platelet Count (auto) 243 10^3/uL (140-450); Red Blood Cells 4.71 10^6/uL (4.5-5.90); Red Cell Distribution Width 13.3 % (11.8-14.3); White Blood Cell 6.4 10^3/uL (4.4-10.8)
[2024-10-18 14:11] LABS: Alanine Aminotransferase 21 U/L (7-40); Albumin 4.4 g/dL (3.2-4.8); Alkaline Phosphatase 77 U/L (46-116); Anion Gap 9 (5-15); BUN/Creatinine Ratio 7.4 (10.0-20.0); Bilirubin, Total 0.6 mg/dL (0.2-1.0); Calcium 9.8 mg/dL (8.7-10.4); Carbon Dioxide 27 mmol/L (20-31); Chloride 101 mmol/L (98-107); Glucose 90 mg/dL (74-106); Lipase 30 U/L (12-53); Magnesium 1.8 mg/dL (1.6-2.6); Potassium 3.8 mmol/L (3.5-5.1); Sodium 137 mmol/L (136-145); Total Protein 7.5 g/dL (5.7-8.2)
[2024-10-18 14:12] LABS: Blood Urea Nitrogen 6 mg/dL (9-23)
[2024-10-18 14:28] LABS: Aspartate Aminotransferase 27 U/L (13-40)
--- NOTE | 2024-10-18 14:34 | DVH ---
INDICATION: RIGHT UPPER QUADRANT ABDOMINAL PAIN TECHNIQUE: Multiple real-time sonographic images of the abdomen were obtained. COMPARISON: CT scan of the chest abdomen pelvis dated 08/25/2024. FINDINGS: Evaluation limited by patient body habitus. The liver is homogenous in echogenicity. The liver measures 15.8cm. No intrahepatic biliary ductal d ilatation is noted. The gallbladder wall measures 0.2 cm and is unremarkable. No gallstones or sludge is seen. The com mon bile duct is not visualized. Negative sonographic Gramajo's sign. The right kidney measures 12.3 cm. No hydronephrosis. The pancreas is not well visualized due to obscuration from bowel gas. The visualized portions of the IVC and aorta are grossly unremarkable. IMPRESSION: 1. Limited study. No acute abnormality. HS:Y
[2024-10-18 16:13] LABS: Urine Bacteria None Seen /hpf (None Seen)
[2024-10-18 16:22] LABS: Urine Blood Negative /uL (Negative); Urine Clarity Clear (Clear); Urine Color Yellow (Yellow); Urine Hyaline Cast FEW /lpf (0 - 2); Urine Mucus FEW (None Seen); Urine Protein, UAD Negative (Negative); Urine Specific Gravity 1.017 (1.001-1.035); Urine Squamous Epithelial Cell FEW /hpf (<5); Urine Urobilinogen 6 mg/dL (Negative); Urine WBC 2 /HPF (0-3)
[2024-10-18] MEDS ORDERED: METO-281 PO (16:47)
[2024-10-18] MEDS ORDERED: ALUMCHW6 PO (16:47)
[2024-10-18 17:12] VITALS: BP 132/64; PULSE 72; RESP 20; TEMP 98.6; O2SAT 94
== END 2024-10-18 17:17 | disposition home or self-care (01) ==
LOC: ER 11:42
DX: R10.11 Right upper quadrant pain (principal); E66.9 Obesity, unspecified; F17.290 Nicotine dependence, other tobacco product, uncomplicated; Z68.42 Body mass index [BMI] 45.0-49.9, adult; Z98.890 Other specified postprocedural states; Z79.899 Other long term (current) drug therapy
CPT/HCPCS: 36415; 76705; 80053; 81001; 83690; 83735; 84484; 85025

== ENCOUNTER 2025-03-22 15:42 | Emergency (ER) | payer MEDICAID ==
[~2025-03-22] VITALS: Ht 177.8 cm; Wt 144.0 kg
[~2025-03-22 15:42] MED LIST changes: +ALUMCHW6 PO; +METO-281 PO
--- NOTE | 2025-03-22 16:17 | ED.PDOC ---
History of Present Illness HPI Comments This patient is a pleasant but significantly morbidly obese 54 y/o M, with no prior medical history presents to the ED for CC of generalized weakness and intermittent shortness a breath. Patient states, he has been experiencing generalized body weakness [id number] which has now worsened in the last x2days. Patient denies Flu-Like symptoms, fever, active bleeding, headache, nausea, or vomiting. No other symptoms or modifying factors are present at this time. Vital signs were stable at arrival. Chief Complaint: General Weakness Time Seen by MD: 16:00 Primary Care Provider: LEIGHANNIES Reviewed Notes: Nurses Notes, Medications, Allergies Allergies: Coded Allergies: NO KNOWN ALLERGIES (Unverified , 08/17/24) Home Meds Active Scripts Aluminum Hydroxide-Mag Carb (Gaviscon Extra Strength) 1 Chw Chw, 1 CHW PO QID f or 10 Days, #40 TAB.CHEW Prov:NELSY RIOS MD 10/18/24 Metoclopramide Hcl (Reglan) 10 Mg Tab, 10 MG PO TID for 10 Days, #30 TAB Prov:NELSY RIOS MD 10/18/24 Fluconazole (Fluconazole) 200 Mg Tab, 400 MG PO DAILY for 30 Days, #60 TAB Prov:EDENILSON ELLIS MD 08/30/24 Folic Acid (Folic Acid) 1 Mg Tab, 1 MG PO DAILY for 30 Days, #30 TAB Prov:GAIL MITCHELL MD 08/22/24 Thiamine Hcl (VITAMIN B-1) 100 Mg Tb, 100 MG PO DAILY for 30 Days, #30 TAB Prov:GAIL MITCHELL MD 08/22/24 Multiple Vitamin (Multivitamin) 1 Tab Tab, 1 TAB PO DAILY for 30 Days, #30 TAB Prov:GAIL MITCHELL MD 08/22/24 Doxycycline Monohydrate (Doxycycline Monohydrate) 100 Mg Tab, 100 MG PO Q12HR for 5 Days, #10 TAB Prov:GAIL MITCHELL MD 08/22/24 Information Source: Patient Mode of Arrival: Ambulatory Severity: Moderate Timing: Months Duration: Since onset Prehospital treatment: None Past Medical History PAST MEDICAL HISTORY: Denies Surgical History: Denies all surgeries Family History Family History: Reviewed,noncontributory to illness Social History Smoker: Other Alcohol: Occasionally Drugs: Denies Drug Use Lives In: Home Constitutional: reports: fatigue, malaise, weakness; denies: chills, diaphoresis, fever, sweats, others EENTM: denies: blurred vision, double vision, ear bleeding, ear discharge, ear drainage, ear pain, ear ringing, eye pain, eye redness, hearing loss, mouth pain, mouth swelling, nasal discharge, nose bleeding, nose congestion, nose pain, photophobia, tearing, throat pain, throat swelling, voice changes, others Respiratory: reports: shortness of breath; denies: cough, hemoptysis, orthopnea, SOB at rest, SOB with excertion, stridor, wheezing, others Cardiovascular: denies: chest pain, dizzy spells, diaphoresis, Dyspnea on exertion, edema, irregular heart beat, left arm pain, lightheadedness, palpitations, PND, syncope, others Gastrointestinal: denies: abdomen distended, abdominal pain, blood streaked bowels, constipated, diarrhea, dysphagia, difficulty swallowing, hematemesis, melena, nausea, poor appetite, poor fluid intake, rectal bleeding, rectal pain, vomiting, others Genitourinary: denies: burning, dysuria, flank pain, frequency, hematuria, incontinence, penile discharge, penile sore, pain, testicle pain, testicle swelling, urgency, others Neurological: denies: dizziness, fainting, headache, left sided numbness, left sided weakness, numbness, paresthesia, pre-existing deficit, right sided numbness, right sided weakness, seizure, speech problems, tingling, tremors, weakness, others Musculoskeletal: denies: back pain, gout, joint pain, joint swelling, muscle pain, muscle stiffness, neck pain, others Integumetry: denies: bruises, change in color, change in hair/nails, dryness, laceration, lesions, lumps, rash, wounds, others Allergic/Immunocompromised: denies: Difficulty Healing, Frequent Infections, Hives, Itching, others Hematologic/Lymphatic: denies: anemia, blood clots, easy bleeding, easy bruising, swollen glands, others Endocrine: denies: excessive hunger, excessive sweating, excessive thirst, excessive urination, flushing, intolerance to cold, intolerance to heat, unexplained weight gain, unexplained weight loss, others Psychiatric: denies: anxiety, bipolar disorder, depression, hopeless, panic disorder, schizophrenia, sleepless, suicidal, others All Other Systems: Reviewed and Negative Physical Exam General Appearance: Moderate Distress ([id number] distress due to the patient's chief complaints.), Obese HEENT: Normal ENT Inspection, Pharynx Normal, TMs Normal Neck: Full Range of Motion, Non-Tender, Normal, Normal Inspection Respiratory: Other (Mild patchy rhonchi appreciated right middle lobe and left upper lobe. No accessory muscle use.) Cardiovascular: No Edema, No JVD, No Murmur, No Gallop, Normal Peripheral Pulses, Regular Rate/Rhythm Breast Exam: Deferred Gastrointestinal: No Organomegaly, Non Tender, No Pulsatile Mass, Normal Bowel Sounds, Soft Genitalia: Deferred Pelvic: Deferred Rectal: Deferred Extremities: No calf tenderness, Normal capillary refill, Normal inspection, Normal range of motion, Non-tender, No pedal edema Neurologic: Alert, No Motor Deficits, Normal Affect, Normal Mood, No Sensory Deficits Cerebellar Function: NOT DONE Reflexes: NOT DONE Skin: Dry, Normal Color, Warm Lymphatic: No Adenopathy Was a procedure done? Was a procedure done?: No Differential Dx Considerations may include: Viral illness, pneumonia, viral upper respiratory illness, electrolyte abno rmality, sepsis, UTI, acute coronary syndrome X-Ray, Labs, Meds, VS Vital Signs Date Time Temp Pulse Resp B/P (MAP) Pulse Ox O2 Delivery O2 Flow Rate FiO2 03/22/25 18:13 98.4 73 13 126/83 (97) 95 98.4 03/22/25 15:43 97.1 85 16 136/85 96 97.1 Lab Test 03/22/25 17:21 03/22/25 16:30 03/22/25 16:21 03/22/25 15:53 Range/Units Troponin I High Sensitivity 3 L 3 L </=54 ng/L Urine Color Yellow Yellow Urine Clarity Clear Clear Urine pH 5.5 5.0-9.0 Urine Specific [place] 1.027 1.001-1.035 Urine Protein Negative Negative Urine Ketones Trace Negative Urine Blood Negative Negative /uL Urine Nitrite Negative Negative Urine Bilirubin Negative Negative Urine Urobilinogen Normal Negative mg/dL Urine Leukocyte Esterase Negative Negative /uL Urine RBC 1 0 - 3 /hpf Urine Microscopic WBC 2 0-3 /HPF Urine Squamous Epithelial Cells Few <5 /hpf Urine Bacteria None seen None Seen /hpf Urine Mucus Few None Seen Urine Glucose Normal Normal mg/dL White Blood Count 7.2 4.4-10.8 10^3/uL Red Blood Count 5.12 4.5-5.90 10^6/uL Hemoglobin 15.7 13.5-17.5 g/dL Hematocrit 45.8 41.0-53.0 % Mean Corpuscular Volume 89.5 80.0-100.0 fL Mean Corpuscular Hemoglobin 30.7 28.0-32.0 pg Mean Corpuscular Hemoglobin Concent 34.3 32.0-36.0 g/dL Red Cell Distribution Width 13.3 11.8-14.3 % Platelet Count 284 140-450 10^3/uL Mean Platelet Volume 7.5 6.9-10.8 fL Neutrophils (%) (Auto) 59.1 37.0-80.0 % Lymphocytes (%) (Auto) 31.0 10.0-50.0 % Monocytes (%) (Auto) 7.3 0.0-12.0 % Eosinophils (%) (Auto) 1.7 0.0-7.0 % Basophils (%) (Auto) 0.9 0.0-2.0 % Neutrophils # (Auto) 4.3 1.6-8.6 10 ^3/uL Lymphocytes # (Auto) 2.2 0.4-5.4 10 ^3/uL Monocytes # (Auto) 0.5 0-1.3 10 ^3/uL Eosinophils # (Auto) 0.1 0-0.8 10 ^3/uL Basophils # (Auto) 0.1 0-0.2 10 ^3/uL Nucleated Red Blood Cells 0.1 % D-Dimer, Quantitative 0.87 H 0.0-0.49 mg/L FEU Sodium Level 136 136-145 mmol/L Potassium Level 4.4 3.5-5.1 mmol/L Chloride Level 103 98-107 mmol/L Carbon Dioxide Level 21 20-31 mmol/L Anion Gap 12 5-15 Blood Urea Nitrogen 13 9-23 mg/dL Creatinine 1.04 0.700-1.30 mg/dL Glomerular Filtration Rate Calc 84 >90 mL/min BUN/Creatinine Ratio 12.5 10.0-20.0 Serum Glucose 109 H 74-106 mg/dL Calcium Level 9.5 8.7-10.4 mg/dL Total Bilirubin 0.6 0.2-1.0 mg/dL Aspartate Amino Transferase (AST) 54 H 13-40 U/L Alanine Aminotransferase (ALT) 35 7-40 U/L Alkaline Phosphatase 103 46-116 U/L B-Type Natriuretic Peptide 16.46 0-100 pg/mL Total Protein 8.3 H 5.7-8.2 g/dL Albumin 4.5 3.2-4.8 g/dL Lipase 36 12-53 U/L POC Glucose 141 H 70-106 mg/dl [facility] [id number] [place] [id number] Ph: [phone] DIAGNOSTIC IMAGING Diagnostic Imaging Report : [id number] Signed PATIENT: RAMIRO MITCHELL DACCT: [id number] UNIT: [id number] : 1970 LOC: ER ROOM / BED: / AGE / SEX: 54 / M ADM STATUS: REG ER SERVICE [id number] ORDERING PHYSICIAN: FAY MULTANI PAC PROCEDURE(s): CXRP - CHEST PORTABLE REASON: Shortness of breath ORDER NUMBER(s): [id number], ACCESSION NUMBER(s): [id number] CHEST RADIOGRAPH Indication: Shortness of breath Technique: XY CHEST PORTABLE COMPARISON: None FINDINGS: The cardiac silhouette is unremarkable. The lungs demonstrate bilateral patchy airspace opacities. Bilateral interstitial airspace opacities. The pulmonary vasculature is prominent. There is no pleural effusion. There is no pneumothorax. Old posterior left 5th rib fracture. IMPRESSION: Pulmonary vascular congestion and bilateral patchy airspace opacities. Interstitial airspace opacities which could represent sequela of pulmonary edema, atypical infection, chronic lung changes/disease. ATED BY: LUIS FERNANDO BARKLEY MD DICTATED DATE/TIME: 03/22/251627 SIGNED BY: LUIS FERNANDO BARKLEY MD SIGNED DATE/TIME: 03/22/251627 CC: X-Ray, Labs, Meds, VS Comment All studies performed in the ED were evaluated by me personally. Serum studies were unremarkable for any significant systemic concerns. EKG was unremarkable for any acute coronary process, but chest x-ray revealed some consolidation indicative of pneumonia. Patient was given his 1st dose of antibiotics prior to discharge. Advised patient utilize medication as directed until completion. Time of 1ST Reevaluation: 19:00 Reevaluation 1ST: Improved Consultation: PCP Patient Education/Counseling: Diagnosis, Treatment Family Education/Counseling: Diagnosis, Treatment, No Family Present SEPSIS Sepsis Screen Date sepsis recognized/suspect: Mar 22, 2025 Time Sepsis recognized/suspect: 1545 Recent Procedure: No On Antibiotic Therapy: No Respiratory Rate >20: No Heart Rate >90: No Temp<36 C (96.8 F) or >38.3 C: No SBP <90 or MAP <65 mmHG: No New Acute Mental Status Change: No Is the patient on CPAP, BIPAP,: No Physician Orders Chest Portable (03/22/25 15:58) Electrocardigram (03/22/25 15:58) Troponin-I Hs (03/22/25 18:58) Azithromycin Tablet (Zithromax Tablet) (03/22/25 19:00) Vital Signs Date Time Temp Pulse Resp B/P (MAP) Pulse Ox O2 Delivery O2 Flow Rate FiO2 03/22/25 18:13 98.4 73 13 126/83 (97) 95 98.4 03/22/25 15:43 97.1 85 16 136/85 96 97.1 Laboratory Tests Test 03/22/25 16:21 White Blood Count 7.2 10^3/uL (4.4-10.8) Departure 1 Departure Time of Disposition: 19:01 Impression: Primary Impression: Pneumonia Disposition: HOME / SELF CARE / HOMELESS Condition: Stable Additional Instructions: Advised patient utilize antibiotics as directed until completion. Patient should practice good hydration and healthy nutrition throughout. e-Prescriptions Azithromycin (Azithromycin) 500 Mg Tab 1 TAB PO DAILY, #5 TAB Prov: FAY MULTANI PAC 03/22/25 Discharged With: Self, Friend Critical Care Note Critical Care Time?: No Stability Stability form required: No Heart Score Heart Score: Heart Score Response (Comments) Value History N/A 0 EKG N/A 0 Age N/A 0 Risk Factors N/A 0 Troponin N/A 0 Total 0 I personally scribed for FAY MULTANI PAC ([email or web address]) on 03/22/25 at 16:17. Electronically submitted by Leti Welch ([email or web address]). I personally scribed for FAY MULTANI PAC ([email or web address]) on 03/22/25 at 16:42. Electronically submitted by Leti Welch [email or web address]). FAY MULTANI PAC Mar 22, 2025 16:17
--- NOTE | 2025-03-22 16:27 | DVH ---
CHEST RADIOGRAPH Indication: Shortness of breath Technique: XY CHEST PORTABLE COMPARISON: None FINDINGS: The cardiac silhouette is unremarkable. The lungs demonstrate bilateral patchy airspace opacities. Bi lateral interstitial airspace opacities. The pulmonary vasculature is prominent. There is no pleural effusion. There is no pneumothorax. Old posterior left 5th rib fracture. IMPRESSION: Pulmonary vascular congestion and bilateral patchy airspace opacities. Interstitial airspace opacities which could represent sequela of pulmonary edema, atypical infection, chronic lung changes/disease.
[2025-03-22 16:29] LABS: Hematocrit 45.8 % (41.0-53.0); Hemoglobin 15.7 g/dL (13.5-17.5); Mean Corpuscular Hemoglobin 30.7 pg (28.0-32.0); Mean Corpuscular Volume 89.5 fL (80.0-100.0); Nucleated Red Blood Cells % 0.1 %
[2025-03-22 16:47] LABS: Alanine Aminotransferase 35 U/L (7-40); Albumin 4.5 g/dL (3.2-4.8); Alkaline Phosphatase 103 U/L (46-116); Anion Gap 12 (5-15); BUN/Creatinine Ratio 12.5 (10.0-20.0); Bilirubin, Total 0.6 mg/dL (0.2-1.0); Blood Urea Nitrogen 13 mg/dL (9-23); Calcium 9.5 mg/dL (8.7-10.4); Carbon Dioxide 21 mmol/L (20-31); Chloride 103 mmol/L (98-107); Glucose 109 mg/dL (74-106); Lipase 36 U/L (12-53); Potassium 4.4 mmol/L (3.5-5.1); Sodium 136 mmol/L (136-145); Total Protein 8.3 g/dL (5.7-8.2)
[2025-03-22 17:29] LABS: Urine Protein, UAD Negative (Negative)
[2025-03-22 18:13] VITALS: BP 126/83; PULSE 73; TEMP 98.4
[2025-03-22] MEDS ORDERED: AZIT500T66 PO (19:02)
[2025-03-22 19:25] VITALS: RESP 14; O2SAT 96
[2025-03-22] MEDS: AZITHROMYCIN 250 MG TAB PO ONE (19:31)
--- NOTE | 2025-03-26 12:27 | ECG ---
[facility] Test Date: 2025-03-22 Test Time: 19:02:31 Pat Name: RAMIRO ANDRADE Department: Room: Gender: M Assembly Person: KAROLINE : 1970 Requested By: FAY MULTANI Order Number: [id number] Reading MD: Measurements Intervals [place] Rate: 55 P: -9 IA: 144 QRS: 2 QRSD: 100 T: -5 QT: 429 QTc: 411 Interpretive Statements Sinus rhythm Atrial premature complexes Abnormal R-wave progression, early transition Left ventricular hypertrophy Borderline T abnormalities, inferior leads Please click the below link to view image of tracing.
== END 2025-03-22 19:34 | disposition home or self-care (01) ==
LOC: ER 15:48
DX: J18.9 Pneumonia, unspecified organism (principal); F17.200 Nicotine dependence, unspecified, uncomplicated; F10.90 Alcohol use, unspecified, uncomplicated; E66.01 Morbid (severe) obesity due to excess calories; Z79.899 Other long term (current) drug therapy; Z68.42 Body mass index [BMI] 45.0-49.9, adult; Y90.9 Presence of alcohol in blood, level not specified
CPT/HCPCS: 36415; 71045; 80053; 81001; 82947; 82962; 83690; 83880; 84484; 85025; 85379; 93005

== ENCOUNTER 2025-06-07 21:17 | Inpatient (IN) | payer MEDICAID ==
[~2025-06-07] VITALS: Ht 175.3 cm; Wt 168.1 kg
[~2025-06-07 21:17] MED LIST changes: +AZIT500T66 PO
--- NOTE | 2025-06-07 21:47 | ED.PDOC ---
History of Present Illness HPI Comments 54y M who presents to the ED for chief complaint of multiple complaints. 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 past medical history: denies past surgical history: pituitary adenoma resection medications: denies allergies: denies social history: endoses tobacco use(vape), denies ETOH use, denies drug use HPI: Poor Historian. REVIEW OF SYSTEMS: CONSTITUTIONAL: Denies acute: diaphoresis, chills, HEAD: Denies acute: headache, photophobia Eyes: Denies acute: Double vision, vision loss, eye pain, eye discharge. EARS: Denies acute: tinnitus, hearing loss, ear discharge, ear pain, THROAT: Denies acute: sore throat, swelling, difficulty swallowing , pain with swallowing, change in voice. NECK: Denies acute: neck pain, neck swelling, stiff neck. HEART: Denies acute : chest pain, palpitations, LUNGS: Denies acute: SOB, wheezing, cough, hemoptysis ABDOMEN: Denies acute: abdominal pain, Nausea, Vomiting, diarrhea, melena , hematemesis, hematochezia SKIN: Denies acute: rash, redness, lesions, itchiness. EXTREMITIES: Denies acute: calf pain, numbness, tingling, weakness, Neuro: Denies acute: focal neurological deficit, motor or sensory focal neurological deficit, tremors, seizure like activity, confusion, dizziness, change in mental status, loss of bowel or bladder function, cauda equina like symptoms. : Denies acute: dysuria, hematuria, flank pain, increase in urinary frequency. PSYCH: Denies acute: hallucination, suicidal ideation, homicidal ideation. PHYSICAL EXAM: General: ----mild to moderate----acute distress, awake and alert. Head: normocephalic, atraumatic. No raccoon's eyes, no herrera sign. Neck: supple, trachea is midline, no swelling. Throat: Normal phonation. Eyes:, no erythema, no purulent discharge, no proptosis, no icterus. Heart: regular rate, regular rhythm, no significant murmur appreciated. Lungs: no apparent respiratory distress, Able to speak in full sentences. No wheezing, no rhonchi, no crackles. No stridors Clear to auscultation bilaterally. Abdomen: non tender to palpation, non distended, soft, no guarding, no rebound, + bowel sounds. Obese Neuro: Awake, Alert, oriented to name, self, situation, follows commands GCS=15. Speech is normal. Skin: no petechia, no purpura, no cyanosis, non-pale, not jaundice. Lower extremities: --2/4 b/l left greater than right - Pitting edema no deformity, no focal swelling, no calf TTP. Noted left lower extremity [id number] erythema consistent with cellulitis. Makes eye contact. moves all four extremities. Face: no apparent facial droop. Pedal pulses are palpable. ED COURSE: DISCLAIMER: This medical document was created using an electronic medical record system with voice recognition software and computerized dictation system. Although this doc ument has been carefully reviewed, there might still be some phonetic and typographical errors. Occasional wrong-word or "sound-alike" substitutions may have occurred due to the inherent limitations of voice recognition software. These areas are purely typographical due to imperfections of the software programs and do not reflect any compromise in the patient's medical care. Please read the chart carefully and recognize, using context, where these substitutions have occurred. Time Seen by MD: 21:39 Primary Care Provider: LEIGHANNIES Reviewed Notes: Medications, Allergies Allergies: Coded Allergies: NO KNOWN ALLERGIES (Unverified , 08/17/24) Home Meds Active Scripts Doxycycline (Monohydrate) (Doxycycline) 100 Mg Cap, 100 MG PO BID for 7 Days, #14 CAP Prov:JEANNETTE MADRID RESIDENT 12/14/25 Reported Medications Multiple Vitamin (Multivitamins) Tab, 1 TAB PO DAILY, #90 TAB 3 Refills 06/08/25 Information Source: Patient, Spouse Mode of Arrival: Ambulatory Past Medical History PAST MEDICAL HISTORY: Denies Surgical History: Denies all surgeries Family History Family History: Reviewed,noncontributory to illness Social History Smoker: Other Alcohol: Occasionally Drugs: Denies Drug Use Lives In: Home Constitutional: denies: chills, diaphoresis, fatigue, fever, malaise, sweats, weakness, others EENTM: denies: blurred vision, double vision, ear bleeding, ear discharge, ear drainage, ear pain, ear ringing, eye pain, eye redness, hearing loss, mouth pain, mouth swelling, nasal discharge, nose bleeding, nose congestion, nose pain, photophobia, tearing, throat pain, throat swelling, voice changes, others Respiratory: denies: cough, hemoptysis, orthopnea, SOB at rest, shortness of breath, SOB with excertion, stridor, wheezing, others Cardiovascular: denies: chest pain, dizzy spells, diaphoresis, Dyspnea on exertion, edema, irregular heart beat, left arm pain, lightheadedness, palpitations, PND, syncope, others Gastrointestinal: denies: abdomen distended, abdominal pain, blood streaked bowels, constipated, diarrhea, dysphagia, difficulty swallowing, hematemesis, melena, nausea, poor appetite, poor fluid intake, rectal bleeding, rectal pain, vomiting, others Genitourinary: denies: burning, dysuria, flank pain, frequency, hematuria, incontinence, penile discharge, penile sore, pain, testicle pain, testicle swelling, urgency, others Neurological: denies: dizziness, fainting, headache, left sided numbness, left sided weakness, numbness, paresthesia, pre-existing deficit, right sided numbness, right sided weakness, seizure, speech problems, tingling, tremors, weakness, others Musculoskeletal: denies: back pain, gout, joint pain, joint swelling, muscle pain, muscle stiffness, neck pain, others Integumetry: denies: bruises, change in color, change in hair/nails, dryness, laceration, lesions, lumps, rash, wounds, others Allergic/Immunocompromised: denies: Difficulty Healing, Frequent Infections, Hives, Itching, others Hematologic/Lymphatic: denies: anemia, blood clots, easy bleeding, easy bruising, swollen glands, others Endocrine: denies: excessive hunger, excessive sweating, excessive thirst, excessive urination, flushing, intolerance to cold, intolerance to heat, unexpla ined weight gain, unexplained weight loss, others Psychiatric: denies: anxiety, bipolar disorder, depression, hopeless, panic disorder, schizophrenia, sleepless, suicidal, others All Other Systems: Reviewed and Negative Physical Exam General Appearance: No Apparent Distress, Normal, Other (a) HEENT: Normal ENT Inspection, Pharynx Normal, TMs Normal, Other (a) Neck: Full Range of Motion, Non-Tender, Normal, Normal Inspection Respiratory: Chest Non-Tender, Lungs Clear, No Accessory Muscle Use, No Respiratory Distress, Normal Breath Sounds, Other (a) Cardiovascular: No Edema, No JVD, No Murmur, No Gallop, Normal Peripheral Pulses, Regular Rate/Rhythm, Other (a) Breast Exam: Other (a), Deferred Gastrointestinal: No Organomegaly, Non Tender, No Pulsatile Mass, Normal Bowel Sounds, Soft, Other (a) Genitalia: Other (a), Deferred Pelvic: Deferred, Other (a) Rectal: Deferred, Other (a) Extremities: No calf tenderness, Normal capillary refill, Normal inspection, Normal range of motion, Non-tender, No pedal edema, Other (a) Musculoskeletal : Apperance: Normal Neurologic: Alert, home designer II-XII nml as Tested, No Motor Deficits, Normal Affect, Normal Mood, No Sensory Deficits, Other (a) Cerebellar Function: Normal, Other (a) Reflexes: Normal, Other (a) Skin: Dry, Normal Color, Warm, Other (a) Lymphatic: No Adenopathy, Other (a) Was a procedure done? Was a procedure done?: No Differential Dx Considerations may include: Leg swelling Ddx include but not limited to DVT, ischemic limb, pitting edema, volume overload, CHF, cellulitis, hematoma, compartment syndrome, dependent edema, venous stasis. Necrotizing fasciitis, abscess, infestation. X-Ray, Labs, Meds, VS Vital Signs Date Time Temp Pulse Resp B/P (MAP) Pulse Ox O2 Delivery O2 Flow Rate FiO2 06/07/25 23:31 74 20 95 Nasal Cannula* 4 36 06/07/25 23:15 98.4 74 20 130/81 (97) 94 98.4 06/07/25 21:19 98.9 89 18 132/91 89 98.9 Lab Test 06/07/25 23:04 06/07/25 21:53 06/07/25 21:52 Range/Units Troponin I High Sensitivity 5 4 </=54 ng/L Urine Color Yellow Yellow Urine Clarity Clear Clear Urine pH 5.5 5.0-9.0 Urine Specific [place] 1.018 1.001-1.035 Urine Protein Negative Negative Urine Ketones Negative Negative Urine Blood Negative Negative /uL Urine Nitrite Negative Negative Urine Bilirubin Negative Negative Urine Urobilinogen 4 H Negative mg/dL Urine Leukocyte Esterase Negative Negative /uL Urine RBC 1 0 - 3 /hpf Urine Microscopic WBC 3 0-3 /HPF Urine Squamous Epithelial Cells Few <5 /hpf Urine Bacteria Few H None Seen /hpf Urine Glucose Normal Normal mg/dL Urine Opiates Screen Neg NEGATIVE Urine Fentanyl Screen Neg NEGATIVE Urine Barbiturates Screen Neg NEGATIVE Urine Phencyclidine Screen Neg NEGATIVE Urine Amphetamines Screen Pos NEGATIVE Urine Benzodiazepines Screen Neg NEGATIVE Urine Cocaine Screen Neg NEGATIVE Urine Cannabinoids Screen Neg NEGATIVE White Blood Count 6.6 4.4-10.8 10^3/uL Red Blood Count 4.20 L 4.5-5.90 10^6/uL Hemoglobin 13.4 L 13.5-17.5 g/dL Hematocrit 38.4 L 41.0-53.0 % Mean Corpuscular Volume 91.3 80.0-100.0 fL Mean Corpuscular Hemoglobin 31.9 28.0-32.0 pg Mean Corpuscular Hemoglobin Concent 34.9 32.0-36.0 g/dL Red Cell Distribution Width 13.5 11.8-14.3 % Platelet Count 307 140-450 10^3/uL Mean Platelet Volume 7.4 6.9-10.8 fL Neutrophils (%) (Auto) 57.9 37.0-80.0 % Lymphocytes (%) (Auto) 27.8 10.0-50.0 % Monocytes (%) (Auto) 10.6 0.0-12.0 % Eosinophils (%) (Auto) 2.9 0.0-7.0 % Basophils (%) (Auto) 0.8 0.0-2.0 % Neutrophils # (Auto) 3.8 1.6-8.6 10 ^3/uL Lymphocytes # (Auto) 1.8 0.4-5.4 10 ^3/uL Monocytes # (Auto) 0.7 0-1.3 10 ^3/uL Eosinophils # (Auto) 0.2 0-0.8 10 ^3/uL Basophils # (Auto) 0.1 0-0.2 10 ^3/uL Nucleated Red Blood Cells 0.1 % Prothrombin Time 10.6 9.3-11.8 sec Prothrombin Time INR 1.00 0.9-1.15 Activated Partial Thromboplast Time 26.9 24.5-34.5 SEC D-Dimer, Quantitative 0.91 H 0.0-0.49 mg/L FEU Sodium Level 134 L 136-145 mmol/L Potassium Level 3.9 3.5-5.1 mmol/L Chloride Level 97 L 98-107 mmol/L Carbon Dioxide Level 27 20-31 mmol/L Anion Gap 10 5-15 Blood Urea Nitrogen 7 L 9-23 mg/dL Creatinine 0.82 0.700-1.30 mg/dL Glomerular Filtration Rate Calc 103 >90 mL/min BUN/Creatinine Ratio 8.5 L 10.0-20.0 Serum Glucose 106 74-106 mg/dL Lactic Acid Level 1.4 0.4-2.0 mmol/L Calcium Level 9.2 8.7-10.4 mg/dL Magnesium Level 2.0 1.6-2.6 mg/dL Total Bilirubin 0.7 0.2-1.0 mg/dL Aspartate Amino Transferase (AST) 104 H 13-40 U/L Alanine Aminotransferase (ALT) 55 H 7-40 U/L Alkaline Phosphatase 98 46-116 U/L B-Type Natriuretic Peptide 28.05 0-100 pg/mL Total Protein 7.7 5.7-8.2 g/dL Albumin 4.2 3.2-4.8 g/dL Microbiology Date/Time Source Procedure Growth Status 06/07/25 21:57 Blood Blood Culture - Final NO GROWTH AFTER 5 DAYS OF INCUBATION. Complete 06/07/25 21:52 Blood Blood Culture - Final NO GROWTH AFTER 5 DAYS OF INCUBATION. Complete Time of 1ST Reevaluation: 22:10 Reevaluation 1ST: Unchanged Patient Education/Counseling: Diagnosis, Treatment Family Education/Counseling: Other Comments MDM: patient presented with the above HPI.-extremity swelling--workup was initiated. patient was found with the above mentioned diagnosis. the following medications were ordered: please refer to order lists of meds and tests obtained by myself Dr. Curry. Patient ED course and VS have been stabilized. Patient has been reassessed in the ED and remained in a stable condition. Pertinent incidental findings were discussed with the patient and/or family. Patient/family voices understanding and is agreeable with plan. Patient has been observed in the ED adequate length of time to insure improvement/stability. Escalation of care considered: Consideration of escalation to observation or admission Patient was ADMITTED to the medicine team for further evaluation and treatment of their presentation. All the reports of any imaging studies that were ordered by myself were reviewed by myself. SEPSIS Sepsis Screen Date sepsis recognized/suspect: Jun 07, 2025 Time Sepsis recognized/suspect: 2123 Recent Procedure: No On Antibiotic Therapy: No Respiratory Rate >20: No Heart Rate >90: No Temp<36 C (96.8 F) or >38.3 C: No SBP <90 or MAP <65 mmHG: No New Acute Mental Status Change: No Is the patient on CPAP, BIPAP,: No Physician Orders Chest Portable (06/07/25 21:40) Accucheck (06/07/25 21:40) Notify Md If Map <65 Or Bp<90 (06/07/25 21:40) If Map<65 Start Vasopressor (06/07/25 21:40) Sepsis Reassesment After Fluid (06/07/25 22:40) Electrocardigram (06/07/25 21:40) Bilat Lower Dvt (06/07/25 22:28) Vital Signs Date Time Temp Pulse Resp B/P (MAP) Pulse Ox O2 Delivery O2 Flow Rate FiO2 06/07/25 23:31 74 20 95 Nasal Cannula* 4 36 06/07/25 23:15 98.4 74 20 130/81 (97) 94 98.4 06/07/25 21:19 98.9 89 18 132/91 89 98.9 Laboratory Tests Test 06/07/25 21:52 Lactic Acid Level 1.4 mmol/L (0.4-2.0) White Blood Count 6.6 10^3/uL (4.4-10.8) Departure 1 Departure Time of Disposition: 22:30 Impression: Primary Impression: Hypoxemia Additional Impressions: Methamphetamine abuse Leg swelling Left leg cellulitis Sepsis UTI (urinary tract infection) Disposition: 09 ADMITTED INPATIENT Admit to: Tele Condition: Guarded e-Prescriptions Doxycycline (Monohydrate) (Doxycycline) 100 Mg Cap 100 MG PO BID for 7 Days, #14 CAP Prov: JEANNETTE MADRID RESIDENT 06/10/25 Discharged With: Self Critical Care Note Critical Care Time?: Yes (45 min-critical care time only) Critical care comment: Due to a high probability of clinically significant, life threatening deterioration, the patient required my highest level of preparedness to intervene emergently and I personally spent this critical care time directly and personally managing the patient. This critical care time included obtaining a history; examining the patient; pulse oximetry; ordering and review of studies; arranging urgent treatment with development of a management plan; evaluation of patient's response to treatment; frequent reassessment; and, discussions with other providers. This critical care time was performed to assess and manage the high probability of imminent, life-threatening deterioration that could result in multi-organ failure. It was exclusive of separately billable procedures and treating other patients and teaching time. Please see my other sections and the rest of the note for further information on patient assessment and treatment. Stability Stability form required: No Heart Score Heart Score: Heart Score Response (Comments) Value History Slightly Suspicious 0 EKG Normal 0 Age 45-64 1 Risk Factors No known risk factors 0 Troponin Normal limit 0 Total 1 I personally scribed for JANIA CURRY DO ([email or web address]) on 06/07/25 at 21:47. Electronically submitted by Clyde Hidalgo ([email or web address]). I personally scribed for JANIA CURRY DO ([email or web address]) on 06/07/25 at 21:55. Electronically submitted by Clyde CARDOSO). JANIA CURRY DO Jun 07, 2025 21:47
[2025-06-07 22:20] LABS: Urine Protein, UAD Negative (Negative)
[2025-06-07 22:21] LABS: Amphetamine Screen, Urine Pos (NEGATIVE); Barbiturate Scree,Urine Neg (NEGATIVE); Benzodiazephine Screen, Urine Neg (NEGATIVE); Cannabinoid Screen, Urine Neg (NEGATIVE); Cocaine Screen, Urine Neg (NEGATIVE); Opiate Scree,Urine Neg (NEGATIVE); Phencyclidine Screen, Urine Neg (NEGATIVE)
[2025-06-07 22:22] LABS: Hematocrit 38.4 % (41.0-53.0); Hemoglobin 13.4 g/dL (13.5-17.5); Mean Corpuscular Hemoglobin 31.9 pg (28.0-32.0); Mean Corpuscular Volume 91.3 fL (80.0-100.0); Nucleated Red Blood Cells % 0.1 %
[2025-06-07 22:37] LABS: INR 1.0 (0.9-1.15); Partial Thromboplastin Time 26.9 SEC (24.5-34.5); Prothrombin Time 10.6 sec (9.3-11.8)
--- NOTE | 2025-06-07 22:39 | DVH ---
CHEST RADIOGRAPH INDICATION: fever, hypoxemia TECHNIQUE: Single frontal view of the chest was obtained. COMPARISON: XY CHEST PORTABLE on DOS: 03/22/25, XY CHEST TWO VIEWS ROUTINE on DOS: 08/24/24 FINDINGS: Mild pulmonary vascular congestion. No significant pleural effusion. No pneumothorax. Enlarged cardiomediastinal silhouette. IMPRESSION: Cardiomegaly with mild pulmonary vascular congestion. Superimposed infection is possible in the appropriate clinical setting.
[2025-06-07 22:43] LABS: Albumin 4.2 g/dL (3.2-4.8); Alkaline Phosphatase 98 U/L (46-116); Anion Gap 10 (5-15); BUN/Creatinine Ratio 8.5 (10.0-20.0); Calcium 9.2 mg/dL (8.7-10.4); Carbon Dioxide 27 mmol/L (20-31); Glucose 106 mg/dL (74-106); Magnesium 2.0 mg/dL (1.6-2.6); Potassium 3.9 mmol/L (3.5-5.1); Total Protein 7.7 g/dL (5.7-8.2)
[2025-06-07 22:44] LABS: Bilirubin, Total 0.7 mg/dL (0.2-1.0)
[2025-06-07 22:45] LABS: Alanine Aminotransferase 55 U/L (7-40); Blood Urea Nitrogen 7 mg/dL (9-23); Chloride 97 mmol/L (98-107); Sodium 134 mmol/L (136-145)
--- NOTE | 2025-06-07 23:08 | DVH ---
Bilateral lower extremity venous duplex CLINICAL HISTORY: swelling COMPARISON: US BILAT LOWER DVT on DOS: 08/19/24 TECHNIQUE: Duplex Doppler evaluation of the deep venous systems of both lower extremities from the common femoral veins to the popliteal veins including color Doppler and spectral/pulsed waveform analysis was performed. FINDINGS: RIGHT SIDE: The common femoral vein demonstrates appropriate compressibility and waveform variability. There is compressibility/patency of the great saphenous vein at the proximal thigh. The femoral vein demonstrates appropriate compressibility and waveform variability. The deep femoral vein demonstrates appropriate compressibility and waveform variability. The popliteal vein demonstrates appropriate compressibility and waveform variability. There is normal compressibility at the tibioperoneal trunk. LEFT SIDE: The common femoral vein demonstrates appropriate compressibility and waveform variability. There is compressibility/patency of the great saphenous vein at the proximal thigh. The femoral vein demonstrates appropriate compressibility and waveform variability. The deep femoral vein demonstrates appropriate compressibility and waveform variability. The popliteal vein demonstrates appropriate compressibility and waveform variability. There is normal compressibility at the tibioperoneal trunk. Left inguinal lymph node measures 3.7 x 2.4 x 0.7 cm. IMPRESSION: 1. No right or left femoropopliteal venous thrombosis. 2. Enlarged left inguinal lymph node measuring 3.7 x 2.4 x 0.7 cm.
[2025-06-07 23:31] VITALS: PULSE 74; RESP 20; O2SAT 95
--- NOTE | 2025-06-07 23:39 | DVHHPRES ---
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 Patient experienced cough last 4 days which is nonproductive and no hemoptysis. Patient having bilateral lower extremity swelling and redness with pain left lower extremity in compared to right lower extremity. Patient did not use any home oxygen, smoke vape. Patient recently discharged from hospital secondary to coccidioidomycosis pneumonia. Patient evaluated in ER, denies any fever, headache, chest pain, abdominal pain, dysuria or any focal weakness. Patient denies any recent fall, trauma or MVA. Past medical history: As above Past surgical history: Pituitary gland removal due to Gigantism Family history: Nothing contributory Personal history: Smokes vape, denies alcohol illicit drug Allergy: No known allergy PCP: Not selected Home meds: None. Review of Systems Constitutional: Yes: Weakness, Malaise; No: Fever, Chills, Sweats, Other Eyes: No: Pain, Vision change, Conjunctivae inflammation, Eyelid inflammation, Other, Redness ENT: No: Ear pain, Ear discharge, Nose pain, Nose discharge, Nose congestion, Mouth pain, Mouth swelling, Throat pain, Throat swelling, Other Respiratory: Cough; No: Dry, Shortness of breath, SOB with excertion, Wheezing, Hemoptysis, Pleuritic Pain, Sputum, Wheezing, Other Cardiovascular: No: Chest Pain, Palpitations, Orthopnea, Paroxysmal Noc. Dyspnea, Edema, Lt Headedness, Other Gastrointestinal: No: Nausea, Vomiting, Abdominal Pain, Diarrhea, Constipation, Melena, Hematochezia, Other Genitourinary: No Dysuria, No Frequency, No Incontinence, No Hematuria, No Retention, No Other Musculoskeletal: No: other, neck pain, shoulder pain, arm pain, back pain, hand pain, leg pain, foot pain Skin: Other (Bilateral lower extremity redness and swelling); No: Rash, Lesions, Jaundice, Bruising Neurological: No: Weakness, Numbness, Incoordination, Change in speech, Confusion, Seizures, Other Allergies: Coded Allergies: NO KNOWN ALLERGIES (Unverified , 08/17/24) Exam Vital Signs Vital Signs Date Time Temp Pulse Resp B/P (MAP) Pulse Ox O2 Delivery O2 Flow Rate FiO2 06/07/25 23:31 74 20 95 Nasal Cannula* 4 36 06/07/25 23:15 98.4 130/81 (97) 98.4 General Appearance: Alert, Oriented X3, Cooperative, mild distress, Other (Giant appearance) HEENT: Atraumatic, PERRLA, EOMI Respiratory: Normal air movement, Other (Occasional wheeze bilateral lung) Cardiovascular: Regular rate, Normal S1, Normal S2, No murmurs Abdominal: Soft, No tenderness, Other (Tenderness and swelling bilateral lower extremity, left< right) Extremities: No clubbing, No cyanosis, No edema, Normal pulses Skin: No rashes, No breakdown, No significant lesion Neuro: Normal gait, Normal speech, Strength at 5/5 X4 ext, Normal tone, Sensation intact, Cranial nerves 3-12 NL Psych/Mental Status: Mental status NL, Mood NL Labs/Xrays Labs Test 06/07/25 23:04 06/07/25 21:53 06/07/25 21:52 Range/Units Urine Color Yellow Yellow Urine Clarity Clear Clear Urine pH 5.5 5.0-9.0 Urine Specific [place] 1.018 1.001-1.035 Urine Protein Negative Negative Urine Ketones Negative Negative Urine Blood Negative Negative /uL Urine Nitrite Negative Negative Urine Bilirubin Negative Negative Urine Urobilinogen 4 H Negative mg/dL Urine Leukocyte Esterase Negative Negative /uL Urine RBC 1 0 - 3 /hpf Urine Microscopic WBC 3 0-3 /HPF Urine Squamous Epithelial Cells Few <5 /hpf Urine Bacteria Few H None Seen /hpf Urine Glucose Normal Normal mg/dL Urine Opiates Screen Neg NEGATIVE Urine Fentanyl Screen Neg NEGATIVE Urine Barbiturates Screen Neg NEGATIVE Urine Phencyclidine Screen Neg NEGATIVE Urine Amphetamines Screen Pos NEGATIVE Urine Benzodiazepines Screen Neg NEGATIVE Urine Cocaine Screen Neg NEGATIVE Urine Cannabinoids Screen Neg NEGATIVE White Blood Count 6.6 4.4-10.8 10^3/uL Red Blood Count 4.20 L 4.5-5.90 10^6/uL Hemoglobin 13.4 L 13.5-17.5 g/dL Hematocrit 38.4 L 41.0-53.0 % Mean Corpuscular Volume 91.3 80.0-100.0 fL Mean Corpuscular Hemoglobin 31.9 28.0-32.0 pg Mean Corpuscular Hemoglobin Concent 34.9 32.0-36.0 g/dL Red Cell Distribution Width 13.5 11.8-14.3 % Platelet Count 307 140-450 10^3/uL Mean Platelet Volume 7.4 6.9-10.8 fL Neutrophils (%) (Auto) 57.9 37.0-80.0 % Lymphocytes (%) (Auto) 27.8 10.0-50.0 % Monocytes (%) (Auto) 10.6 0.0-12.0 % Eosinophils (%) (Auto) 2.9 0.0-7.0 % Basophils (%) (Auto) 0.8 0.0-2.0 % Neutrophils # (Auto) 3.8 1.6-8.6 10 ^3/uL Lymphocytes # (Auto) 1.8 0.4-5.4 10 ^3/uL Monocytes # (Auto) 0.7 0-1.3 10 ^3/uL Eosinophils # (Auto) 0.2 0-0.8 10 ^3/uL Basophils # (Auto) 0.1 0-0.2 10 ^3/uL Nucleated Red Blood Cells 0.1 % Prothrombin Time 10.6 9.3-11.8 sec Prothrombin Time INR 1.00 0.9-1.15 Activated Partial Thromboplast Time 26.9 24.5-34.5 SEC D-Dimer, Quantitative 0.91 H 0.0-0.49 mg/L FEU Sodium Level 134 L 136-145 mmol/L Potassium Level 3.9 3.5-5.1 mmol/L Chloride Level 97 L 98-107 mmol/L Carbon Dioxide Level 27 20-31 mmol/L Anion Gap 10 5-15 Blood Urea Nitrogen 7 L 9-23 mg/dL Creatinine 0.82 0.700-1.30 mg/dL Glomerular Filtration Rate Calc 103 >90 mL/min BUN/Creatinine Ratio 8.5 L 10.0-20.0 Serum Glucose 106 74-106 mg/dL Lactic Acid Level 1.4 0.4-2.0 mmol/L Calcium Level 9.2 8.7-10.4 mg/dL Magnesium Level 2.0 1.6-2.6 mg/dL Total Bilirubin 0.7 0.2-1.0 mg/dL Aspartate Amino Transferase (AST) 104 H 13-40 U/L Alanine Aminotransferase (ALT) 55 H 7-40 U/L Alkaline Phosphatase 98 46-116 U/L B-Type Natriuretic Peptide 28.05 0-100 pg/mL Total Protein 7.7 5.7-8.2 g/dL Albumin 4.2 3.2-4.8 g/dL SEPSIS Sepsis Screen Date sepsis recognized/suspect: Jun 07, 2025 Time Sepsis recognized/suspect: 2123 Recent Procedure: No On Antibiotic Therapy: No Respiratory Rate >20: No Heart Rate >90: No Temp<36 C (96.8 F) or >38.3 C: No SBP <90 or MAP <65 mmHG: No New Acute Mental Status Change: No Is the patient on CPAP, BIPAP,: No Physician Orders Chest Portable (06/07/25 21:40) Accucheck (06/07/25 21:40) Blood Culture (06/07/25 21:40) Lactic Acid W/ Reflex Order (06/08/25 00:00) Cefepime 1gm/50ml (Maxipime 1gm/50ml) (06/07/25 21:45) Notify Md If Map <65 Or Bp<90 (06/07/25 21:40) If Map<65 Start Vasopressor (06/07/25 21:40) Sepsis Reassesment After Fluid (06/07/25 22:40) Electrocardigram (06/07/25 21:40) Covid19 Antigen Isabel (06/07/25 ) Rapid Influenza A&B (06/07/25 21:40) Troponin-I Hs (06/07/25 22:40) Troponin-I Hs (06/08/25 00:40) Bilat Lower Dvt (06/07/25 22:28) Admit (06/07/25 23:31) Code Status (06/07/25 23:31) 0.9% Ns 1000 Ml (06/07/25 23:45) Enoxaparin Sodium (Lovenox) (06/08/25 10:00) Zinc Sulfate (06/08/25 10:00) Ascorbic Acid Tablet (Vitamin C Tablet) (06/08/25 10:00) Acetaminophen Tablet (Tylenol Tablet) (06/07/25 23:45) Notify Md Of Changes From Base (06/07/25 23:31) Regular Diet (06/08/25 Breakfast) Vancomycin (06/07/25 23:45) Cefepime 1 Gm (06/08/25 10:00) Vital Signs Date Time Temp Pulse Resp B/P (MAP) Pulse Ox O2 Delivery O2 Flow Rate FiO2 06/07/25 23:31 74 20 95 Nasal Cannula* 4 36 06/07/25 23:15 98.4 74 20 130/81 (97) 94 98.4 06/07/25 21:19 98.9 89 18 132/91 89 98.9 Laboratory Tests Test 06/07/25 21:52 Lactic Acid Level 1.4 mmol/L (0.4-2.0) White Blood Count 6.6 10^3/uL (4.4-10.8) Assessment/Plan Assessment/Plan Acute hypoxic respiratory failure secondary to pneumonia Rule out pulmonary embolism History of pulmonary coccidiomycosis pneumonia Troponin: 4 CXR: Cardiomegaly with mild pulmonary vascular congestion. D-dimer: 0.9 BNP: 28.05 Wells score-6, moderately risk Start empiric antibiotics cefepime and vancomycin Breathing treatment Currently oxygen 4 L, deescalate accordingly Pain management COVID [address] angio chest Monitor vital Cellulitis left leg Vanc and cefepime MRSA scren Hyponatremia Sodium 130 BMP Transaminitis AST 104, ALT 55, total bilirubin 0.7 Monitor labs Substance abuse Alcohol use disorder Counseling done>13 minutes spent UDS positive for amphetamine Gigantism s/p pituitary removal Echocardiogram 07/2024: EF 55% Morbid obesity, BMI 44.0 Lifestyle modified Diet: Regular DVT prophylaxis: Lovenox GI prophylaxis: Pantoprazole Goals of care discussion. More than 27 minute spent with patient. Full code status. Case discussed with Dr. Gan Plan discussed with: Patient, Spouse ([place]), Other (Nurse) My Orders Orders - RASHAAD TOLENTINO RESIDENT Procedure Category Date Status Time Admit ADMIT 06/07/25 Transmitted 23:31 Code Status CODE 06/07/25 Transmitted 23:31 0.9% Ns 1000 Ml PHA 06/07/25 Transmitted 23:45 Enoxaparin Sodium PHA 06/08/25 Transmitted (Lovenox) 10:00 Zinc Sulfate PHA 06/08/25 Transmitted 10:00 Ascorbic Acid Tablet PHA 06/08/25 Transmitted (Vitamin C Tablet) 10:00 Acetaminophen Tablet PHA 06/07/25 Transmitted (Tylenol Tablet) 23:45 Notify Md Of Changes FRANCIA 06/07/25 Transmitted From Base 23:31 Regular Diet DIET 06/08/25 Transmitted Breakfast Vancomycin PHA 06/07/25 Transmitted 23:45 Cefepime 1 Gm PHA 06/08/25 Transmitted 10:00 Visit Coding STANDARD RES Billing Provider: GAIL GAN MD Date of Service if different f: Jun 07, 2025 Common Visit Codes: [id number] INP/OBS CARE (HIGH) Secondary Visit Codes: [id number] CARE PLAN 30 MINUTES RASHAAD TOLENTINO RESIDENT Jun 07, 2025 23:39
[2025-06-07] MEDS: CEFEPIME 1GM/50ML 50 ML IV ONE (23:42)
[2025-06-07] MEDS ORDERED: VANCOMYCIN 1GM/250ML IV ONE (23:45)
[2025-06-07] MEDS: SODIUM CHLORIDE 0.9% 1,000 ML IV SCH (23:45)
[2025-06-07] MEDS ORDERED: VANCOMYCIN PER PHARMACY 0 MG IV SCH (23:45)
[2025-06-07] MEDS: VANCOMYCIN 1GM/250ML KIT 250 ML IV ONE (23:55)
[2025-06-08] VITALS (13 sets, daily range): BP systolic 112–160; BP diastolic 58–101; PULSE 65–91; RESP 16–20; TEMP 98–98.4; O2SAT 91–99
[2025-06-08] MEDS: IOHEXOL 350 MG/ML 100ML IJ ONE (00:32)
[2025-06-08 00:56] LABS: COVID19 ANTIGEN SOFIA FIA NEGATIVE (NEGATIVE)
--- NOTE | 2025-06-08 02:27 | DVH ---
CTA Chest with intravenous contrast INDICATION: r/o PE COMPARISON: XY CHEST PORTABLE on DOS: 06/07/25, XY CHEST PORTABLE on DOS: 03/22/25, XY CHEST TWO VIEWS ROUTINE on DOS: 08/24/24, XY CHEST PORTABLE on DOS: 08/22/24, XY CHEST PORTABLE on DOS: 08/22/24 TECHNIQUE: Multidetector spiral CTA of the chest was performed of the chest with intravenous contrast. PULMONARY ANGIOGRAPHY PROTOCOL was utilized using a bolus- tracking technique centered on the main pulmonary artery. Axial, coronal and sagittal multiplanar and MIP reformats were performed. Radiation Dose : 1. Chest: CTDI volume is 29.6 mGy. Dose-length product is 2108.06 mGy*cm The dose indicators for CT are the volume Computed Tomography (CT) Dose Index (CTDIvol) and the Dose Length Product (DLP), and are measured in units of mGy and mGy-cm, respectively. These indicators are not patient dose, but values generated from the CT scanner acquisition factors. The report includes radiation exposure data for exposures received during this examination. FINDINGS: Pulmonary artery: No pulmonary embolism. Lower neck: Normal thyroid. Lungs: No focal consolidation, pleural effusion or pneumothorax. 1.7 cm pleural- based posterior right upper lobe pulmonary nodule. Heart/Vascular Structures: Normal heart size. No pericardial effusion. Lymph Nodes: No adenopathy Musculoskeletal: No acute osseous abnormality. Soft tissues: Normal. Upper abdomen: Limited portions of the upper abdomen are unremarkable. IMPRESSION: 1. No pulmonary embolism. 2. 1.7 cm pleural-based posterior right upper lobe pulmonary nodule.
[2025-06-08] MEDS ORDERED: MULT-1018 PO (03:23)
[2025-06-08] MEDS: IPRATROPIUM BROM 0.5 MG/2.5ML INH SOL NEB SCH (06:42)
[2025-06-08] MEDS: ALBUTEROL SULF 2.5 MG/0.5ML(0.5%) NEB SOLN NEB SCH (06:42)
[2025-06-08 07:50] LABS: Chloride 98 mmol/L (98-107); Potassium 3.9 mmol/L (3.5-5.1)
[2025-06-08 07:51] LABS: Anion Gap 10 (5-15); Calcium 8.9 mg/dL (8.7-10.4); Carbon Dioxide 28 mmol/L (20-31)
[2025-06-08 07:54] LABS: Hematocrit 38.4 % (41.0-53.0); Hemoglobin 13.3 g/dL (13.5-17.5); Mean Corpuscular Hemoglobin 31.8 pg (28.0-32.0); Mean Corpuscular Volume 91.9 fL (80.0-100.0); Nucleated Red Blood Cells % 0.1 %
[2025-06-08 07:56] LABS: BUN/Creatinine Ratio 7.9 (10.0-20.0); Triglycerides 78 mg/dL (< 150)
[2025-06-08 07:57] LABS: Blood Urea Nitrogen 6 mg/dL (9-23); Glucose 125 mg/dL (74-106); Sodium 136 mmol/L (136-145)
[2025-06-08 07:58] LABS: Cholesterol 148 mg/dL (< 200); HDL Cholesterol 50 mg/dL (40-59)
[2025-06-08] MEDS: ZINC SULFATE 220mg CAP or TAB PO SCH (08:24)
[2025-06-08] MEDS: ASCORBIC ACID 500 MG TAB PO SCH (08:24)
[2025-06-08] MEDS: ENOXAPARIN SOD 40 MG/0.4 ML SYRINGE SC SCH (08:25)
[2025-06-08] MEDS: CEFEPIME 1GM/50ML 50 ML IV SCH (08:26)
--- NOTE | 2025-06-08 10:27 | DVHPNRES ---
Progress Note Date Seen: Jun 08, 2025 Resident Creating Document: PHILOMENA EUCEDA Medical Necessity Reason Pt with a Central, PICC or Fol: No Subjective Review of Systems Patient is a 54-year-old male with past medical history of pulmonary coccidiomycosis with pneumonia, 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 The pain is described as sharp and constant, with severity up to 9-10/10, without radiation. He reports right lateral lower extremity swelling for 1 month, associated with pain rated 7-10/10. 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 Two days prior, he completed a long route from [place] to [place]. He reports taking an unknown stimulant pill given by a friend 5 days ago to prevent sleep while driving. After ingestion, he was unable to sleep for 2 days. Swelling and pain have been worsening. He denies fever but reports chronic discomfort in both legs. Past medical history: As above Past surgical history: Transsphenoidal surgery and pituitary gland removal due to Gigantism 10 years ago, no hormone replacement since, left leg fracture surgical repair 2 years ago Family history: Nothing contributory Personal history: Smokes vape, denies alcohol illicit drug. 4-5 days ago he take on known stimulant pill. UDS positive amphetamine Allergy: No known allergy PCP: Not selected Home meds: None. Patient seen and examined at bedside. Patient is alert and oriented to time, place person and responding to all questions. Constitutional: Weakness, Malaise Eyes: No Pain, No Vision change, No Conjunctivae inflammation, No Eyelid inflammation, No Other, No Redness ENT: No Ear pain, No Ear discharge, No Nose pain, No Nose discharge, No Nose congestion, No Mouth pain, No Mouth swelling, No Throat pain, No Throat swelling, No Other Cardiovascular: No Chest Pain, No Palpitations, No Orthopnea, No Paroxysmal No Dyspnea, No Edema, No Lt Headedness, No Other Respiratory: No Cough, No Dry, Shortness of breath, No SOB with exertion, No Wheezing, No Hemoptysis, No Pleuritic Pain, No Sputum, No Other Gastrointestinal: No Nausea, No Vomiting, No Abdominal Pain, No Diarrhea, No Constipation, No Melena, No Hematochezia, No Other Genitourinary: No Dysuria, No Frequency, No Incontinence, No Hematuria, No Retention, No Other Musculoskeletal: No other, No neck pain, No shoulder pain, No arm pain, No back pain, No hand pain, No leg pain, No foot pain Skin: Rash, No Lesions, No Jaundice, No Bruising, No Other. Left lower extremity redness and swelling Objective vital signs Vital Sign Date Time Temp Pulse Resp B/P (MAP) Pulse Ox O2 Delivery O2 Flow Rate FiO2 06/08/25 08:30 Nasal Cannula* 4 36 06/08/25 06:48 77 20 99 06/08/25 05:00 98.3 122/59 (80) 98.3 Total Intake and Output 06/07/25 06/07/25 06/08/25 15:00 23:00 07:00 Intake Total 800.0 ml Output Total 600 ml Balance 200.0 ml medications Current Medications Medications Dose Ordered Sig/Johnnie Route Start Time Stop Time Status Last Admin Dose Admin Sodium Chloride 1,000 ml @ 75 mls/hr [id number] IV 06/07/25 23:45 06/08/25 02:16 75 MLS/HR Enoxaparin Sodium 40 mg DAILY SC 06/08/25 10:00 06/08/25 08:25 40 MG Zinc Sulfate 220 mg DAILY PO 06/08/25 10:00 06/08/25 08:24 220 MG Ascorbic Acid 500 mg BID PO 06/08/25 10:00 06/08/25 08:24 500 MG Acetaminophen 650 mg Q6HP PRN PO 06/07/25 23:45 Vancomycin HCl 0 ml @ 0 mls/hr PER PHARMACY IV 06/07/25 23:45 Cefepime HCl 50 ml @ 12.5 mls/hr Q12HR IV 06/08/25 10:00 06/08/25 08:26 12.5 MLS/HR Albuterol 2.5 mg Q6HR NEB 06/08/25 06:00 06/08/25 06:42 2.5 MG Ipratropium [place] 0.5 mg Q6HR NEB 06/08/25 06:00 06/08/25 06:42 0.5 MG Vancomycin HCl 250 ml @ 200 mls/hr Q8H IV 06/08/25 14:00 Examination General Appearance: Cooperative. Well developed. Well nourished. Giant appearance Head Exam: Normal inspection Neck Exam: Normal inspection. Non-tender. Normal alignment Pulmonary/Respiratory: Chest non-tender. Clear bilateral breath sounds, no crackles, no wheezing. bilateral lung expiratory wheezing Cardiovascular/Chest: Regular rate and rhythm. No murmurs. No JVD. Peripheral Pulses: 2+ Radial (R). 2+ Radial (L). 2+ Pedal (R). 2+ Pedal (L) Abdominal Exam: Normal bowel sounds. Soft. normal abdomen, no visible veins, Nontender. No hepatospenomegaly. No masses Ankle Exam: Negative ankle edema Lower extremities: Tenderness and swelling bilateral lower extremity, left trace edema, right +1 pitting edema Neuro/Mental Status: A&O x4. Coherent. Thoughts/Psych: Normal thought pattern. Appropriate mood and affect. Good judgement and insight Skin Exam: Normal inspection. Normal color. Warm. Dry laboratory and microbiology Laboratory Tests 06/08/25 07:12 Test 06/08/25 07:12 Range/Units Serum Glucose 125 H 74-106 mg/dL Labs and/or images reviewed: Labs reviewed by me, Image(s) reviewed by me Problem List/Assessment/Plan Problem List/Assessment/Plan #Acute hypoxic respiratory failure secondary to pneumonia #Right upper lobe pulmonary nodule #Ruled out pulmonary embolism #Ruled out DVT #Rule out CHF #History of pulmonary coccidiomycosis pneumonia CT Angiography: No pulmonary embolism. 1.7 cm pleural-based posterior right upper lobe pulmonary nodule. Extremity Venous Study: No right or left femoropopliteal venous thrombosis. Enlarged left inguinal lymph node measuring 3.7 x 2.4 x 0.7 cm. Chest X-ray: Cardiomegaly with mild pulmonary vascular congestion. Superimposed infection is possible in the appropriate clinical setting. Echocardiogram pending Troponin: 4 D-dimer: 0.9 BNP: 28.05 Wells score-6, moderately risk Start empiric antibiotics cefepime and vancomycin Breathing treatment Currently oxygen 4 L, deescalate accordingly Pain management COVID [address] angio chest Monitor vital ABG Blood culture Sputum culture MRSA screen Coccidioides antibody Lipid panel 0.9% IV NS 75 MLS/HR #Left lower leg cellulitis Vanc and cefepime MRSA scren #Hyponatremia Sodium 130 BMP #Transaminitis AST 104, ALT 55, total bilirubin 0.7 Monitor labs #Substance abuse #Alcohol use disorder I have counseled the patient on the importance of complete methamphetamine, alcohol cessation for over 13 minutes UDS positive for amphetamine #Gigantism s/p a trans-sphenoidal surgery, pituitary removal Echocardiogram 07/2024: EF 55% #Morbid Obesity, BMI 44.0 kg/m2 I have counseled the patient on healthy lifestyle modifications Diet: Regular DVT prophylaxis: Lovenox GI prophylaxis: Pantoprazole Goals of care discussion. More than 27 minute spent with patient. Full code status. Case discussed with Dr. Betancourt Plan discussed with: Patient, Other My Orders My Orders Orders - PHILOMENA EUCEDA Procedure Category Date Status Time Coccidioides Immitis LAB 06/08/25 In Process Antibody 07:54 Lipid Panel LAB 06/09/25 Verified 04:00 Urine Bacterial JOSE ROBERTO 06/08/25 Logged Culture 08:01 Echo 2d Mode Cardiac US 06/08/25 Logged DOP 08:02 Visit Coding STANDARD RES Billing Provider: THU BETANCOURT MD Date of Service if different f: Jun 08, 2025 Common Visit Codes: [id number] INP/OBS CARE(HIGH) PHILOMENA EUCEDA RESIDENT Jun 08, 2025 10:27
[2025-06-08 10:36] LABS: Base Excess 1.8 mmol/L (-2.0-3.0)
[2025-06-08] MEDS: VANCOMYCIN 1.25GM/250ML 250 ML IV SCH (13:16)
[2025-06-09] VITALS (15 sets, daily range): BP systolic 110–154; BP diastolic 54–101; PULSE 52–78; RESP 16–20; TEMP 97.2–98.7; O2SAT 91–100
[2025-06-09 06:25] LABS: Hematocrit 37.9 % (41.0-53.0); Hemoglobin 12.9 g/dL (13.5-17.5); Mean Corpuscular Hemoglobin 31.8 pg (28.0-32.0); Mean Corpuscular Volume 93.3 fL (80.0-100.0); Nucleated Red Blood Cells % 0.1 %
[2025-06-09 06:48] LABS: Triglycerides 80 mg/dL (< 150)
[2025-06-09 06:49] LABS: Alkaline Phosphatase 82 U/L (46-116); Anion Gap 9 (5-15); BUN/Creatinine Ratio 9.5 (10.0-20.0); Calcium 8.9 mg/dL (8.7-10.4); Carbon Dioxide 31 mmol/L (20-31); Chloride 99 mmol/L (98-107); Cholesterol 138 mg/dL (< 200); Potassium 4.0 mmol/L (3.5-5.1); Sodium 139 mmol/L (136-145); Total Protein 7.3 g/dL (5.7-8.2)
[2025-06-09 06:50] LABS: Albumin 3.9 g/dL (3.2-4.8); Bilirubin, Total 0.5 mg/dL (0.2-1.0); HDL Cholesterol 50 mg/dL (40-59)
[2025-06-09 06:51] LABS: Alanine Aminotransferase 42 U/L (7-40); Blood Urea Nitrogen 7 mg/dL (9-23); Glucose 120 mg/dL (74-106)
[2025-06-09] MEDS: ACETAMINOPHEN 325 MG TAB PO PRN (10:30)
--- NOTE | 2025-06-09 15:12 | DVHPNRES ---
Progress Note Date Seen: Jun 09, 2025 Resident Creating Document: SURINDER ESPINOZA RESIDENT Medical Necessity Reason Pt with a Central, PICC or Fol: No Subjective Review of Systems PAtient seen and examined at bedside. Currently has no new complaint. Patient is off of oxygen, but persist with bilateral leg erythema. Objective vital signs Vital Sign Date Time Temp Pulse Resp B/P (MAP) Pulse Ox O2 Delivery O2 Flow Rate FiO2 06/09/25 12:56 98.1 59 18 110/89 (96) 91 98.1 06/09/25 12:28 Nasal Cannula 3.0 06/09/25 12:28 32 Total Intake and Output 06/08/25 06/08/25 06/09/25 15:00 23:00 07:00 Intake Total 50 ml 500 ml 800 ml Balance 50 ml 500 ml 800 ml medications Current Medications Medications Dose Ordered Sig/Johnnie Route Start Time Stop Time Status Last Admin Dose Admin Enoxaparin Sodium 40 mg DAILY SC 06/08/25 10:00 06/09/25 10:25 40 MG Zinc Sulfate 220 mg DAILY PO 06/08/25 10:00 06/09/25 10:25 220 MG Ascorbic Acid 500 mg BID PO 06/08/25 10:00 06/09/25 10:25 500 MG Acetaminophen 650 mg Q6HP PRN PO 06/07/25 23:45 06/09/25 10:30 650 MG Vancomycin HCl 0 ml @ 0 mls/hr PER PHARMACY IV 06/07/25 23:45 Cefepime HCl 50 ml @ 12.5 mls/hr Q12HR IV 06/08/25 10:00 06/09/25 10:25 12.5 MLS/HR Albuterol 2.5 mg Q6HR NEB 06/08/25 06:00 06/09/25 12:28 2.5 MG Ipratropium [place] 0.5 mg Q6HR NEB 06/08/25 06:00 06/09/25 12:28 0.5 MG Vancomycin HCl 250 ml @ 200 mls/hr Q8H IV 06/08/25 14:00 06/09/25 14:15 200 MLS/HR Examination Patient lying in bed, in no acute distress General: Lucid, afebrile, mucosae are moist Cardiovascular: Normal S1 and S2. No murmurs, gallops or rubs Respiratory: Normal ventilation mechanics. Clear lung sounds on auscultation Abdomen: Soft, nontender, no organomegaly, normal bowel sounds MSK/skin: Mobilizes 4 limbs. Skin is dry and warm. Bilateral erythema, left greater than right. Neurological: Oriented in 3 spheres. No motor no sensitive deficits. Pupils are isocoric and reactive laboratory and microbiology Laboratory Tests 06/09/25 05:00 Test 06/09/25 05:00 Range/Units Serum Glucose 120 H 74-106 mg/dL Microbiology Date/Time Source Procedure Growth Status 06/08/25 14:16 Sputum Gram Stain Pending Resulted 06/08/25 14:16 Sputum Respiratory Culture - Preliminary Resulted 06/08/25 11:38 Voided Urine Urine Culture - Preliminary No growth Resulted 06/08/25 11:02 Nose MRSA Screen - Final Complete 06/07/25 21:57 Blood Blood Culture - Preliminary NO GROWTH AFTER 24 HOURS OF INCUBATION. Resulted Problem List/Assessment/Plan Problem List/Assessment/Plan # Acute hypoxic respiratory failure secondary to pneumonia # Right upper lobe pulmonary nodule # Ruled out pulmonary embolism # Ruled out DVT # Rule out CHF # History of pulmonary coccidiomycosis pneumonia CT Angiography: No pulmonary embolism. 1.7 cm pleural-based posterior right upper lobe pulmonary nodule. Extremity Venous Study: No right or left femoropopliteal venous thrombosis. Enlarged left inguinal lymph node measuring 3.7 x 2.4 x 0.7 cm. Chest X-ray: Cardiomegaly with mild pulmonary vascular congestion. Superimposed infection is possible in the appropriate clinical setting. Echocardiogram completed, pending report. Ordered pancultures (blood, urine, wound and sputum) and MRSA/COVID/Influenza swab. Coccidioides antibody ordered Currently under empiric IV antibiotics (cefepime and vancomycin) Breathing treatment On admission was on oxygen therapy, currently breathing at room air. HIV negative # Left lower leg cellulitis Currently under empiric IV antibiotics (cefepime and vancomycin) # Hyponatremia - Resolved Monitor # Transaminitis AST 104, ALT 55, total bilirubin 0.7 Monitor labs # Substance abuse # Alcohol use disorder I have counseled the patient on the importance of cessation of methamphetamine, alcohol cessation for over 13 minutes UDS positive for amphetamine. Patient expresses he does not consume methamphetamine. # Gigantism s/p a trans-sphenoidal surgery, pituitary removal Echocardiogram 07/2024: EF 55% Cortisol am within normal limits # Normocytic anemia Monitor # Vitamin D deficiency Replenished # Morbid Obesity, BMI 44.0 kg/m2 Counseled the patient on healthy lifestyle modifications Goals of care discussed with patient for over 18 minutes: Full code status Discussed plan with Dr Betancourt, patient and nurses: Currently asymptomatic, breathing room air. Planning on completing at least hours more of IV antibiotics. Pending culture results. Plan discussed with: Patient, Spouse, Other (Nurses) Visit Coding STANDARD RES Billing Provider: THU BETANCOURT MD Date of Service if different f: Jun 09, 2025 Common Visit Codes: [id number] INP/OBS CARE(HIGH) SURINDER ESPINOZA RESIDENT Jun 09, 2025 15:12 THU BTEANCOURT MD Jun 12, 2025 18:54
[2025-06-09] MEDS: VANCOMYCIN 1.5GM/250ML 250 ML IV SCH (21:50)
[2025-06-10] VITALS (12 sets, daily range): BP systolic 108–166; BP diastolic 64–92; PULSE 56–78; RESP 16–20; TEMP 97.9–99.1; O2SAT 92–100
--- NOTE | 2025-06-10 00:40 | DVHSR ---
APPROVED REPORT EXAM: LIMITED Two-dimensional and M-mode echocardiogram with Doppler and color Doppler. Blood Pressure: 10/54 mmHg INDICATION Chest Pain RISK FACTORS Obesity: Height: 5'9, Weight: 300 DIMENSIONS LVDd 5.0 (3.8-5.7cm) LA (2D) (1.9-4.0cm) Aortic Root 4.0 (2.0-3.7cm) LVDs 3.4 (2.5-4.0cm) LA (MM) (1.9-4.0cm) Aortic Cusp Exc 2.2 (1.5-2.0cm) EF (%) 55.0 (55-70%) Rt. Atrium (1.9-4.0cm) Asc. Aorta cm IVSd 1.1 (0.7-1.1cm) RV (D) (1.8-2.4cm) PWd 1.1 (0.7-1.1cm) Mitral Valve Mitral Mitral Stenosis E wave 0.72m/s MV Mean GR. mmHg A wave 0.72m/s MV Peak GR. mmHg E/A ratio 1.0 2D MVA cm2 DECEL Time 224ms PRESS 1/2 Time ms Aortic Valve Aortic Valve Aortic Stenosis V1 0.78m/s AO Mean GR. mmHg V2 1.14m/s AO Peak GR. 5mmHg LVOT Diameter 2.7 (1.8-2.4cm) Doppler AUGUST 3.92cm2 Pulmonic Valve V2 1.08m/s Tricuspid Valve TR Velocity 2.87m/s RVSP 33mmHg Conclusion LV EF IS 65% NORMAL VALVES NORMAL RV FUNCTION NO EFFUSION RVSP IS 33 MM OF HG AND IS NORMAL
[2025-06-10 08:00] LABS: Hematocrit 38.1 % (41.0-53.0); Hemoglobin 13.2 g/dL (13.5-17.5); Mean Corpuscular Hemoglobin 32.0 pg (28.0-32.0); Mean Corpuscular Volume 92.5 fL (80.0-100.0); Nucleated Red Blood Cells % 0.0 %
[2025-06-10 08:08] LABS: Alkaline Phosphatase 74 U/L (46-116); Anion Gap 7 (5-15); BUN/Creatinine Ratio 8.0 (10.0-20.0); Calcium 9.2 mg/dL (8.7-10.4); Chloride 99 mmol/L (98-107); Magnesium 2.0 mg/dL (1.6-2.6); Potassium 4.1 mmol/L (3.5-5.1); Sodium 139 mmol/L (136-145); Total Protein 7.2 g/dL (5.7-8.2)
[2025-06-10 08:09] LABS: Albumin 3.9 g/dL (3.2-4.8); Bilirubin, Total 0.4 mg/dL (0.2-1.0)
[2025-06-10 08:10] LABS: Alanine Aminotransferase 40 U/L (7-40); Blood Urea Nitrogen 6 mg/dL (9-23); Carbon Dioxide 33 mmol/L (20-31); Glucose 111 mg/dL (74-106)
[2025-06-10] MEDS ORDERED: DOXY100C79 PO (14:40)
--- NOTE | 2025-06-10 15:11 | DVHDSRES ---
Discharge Summary Date of Admission Resident Creating Document: JEANNETTE MADRID RESIDENT Jun 07, 2025 at 23:31 Date of Discharge: Jun 10, 2025 Admitting Diagnosis Acute hypoxic respiratory failure likely due to pneumonia/left leg cellulitis Labs/Diagnostic Data: Laboratory Results Test 06/10/25 06:10 06/09/25 13:07 06/09/25 05:00 06/08/25 10:26 White Blood Count 5.9 10^3/uL (4.4-10.8) Red Blood Count 4.12 10^6/uL (4.5-5.90) Hemoglobin 13.2 g/dL (13.5-17.5) Hematocrit 38.1 % (41.0-53.0) Mean Corpuscular Volume 92.5 fL (80.0-100.0) Mean Corpuscular Hemoglobin 32.0 pg (28.0-32.0) Mean Corpuscular Hemoglobin Concent 34.6 g/dL (32.0-36.0) Red Cell Distribution Width 13.6 % (11.8-14.3) Platelet Count 281 10^3/uL (140-450) Mean Platelet Volume 7.6 fL (6.9-10.8) Neutrophils (%) (Auto) 59.0 % (37.0-80.0) Lymphocytes (%) (Auto) 28.1 % (10.0-50.0) Monocytes (%) (Auto) 8.7 % (0.0-12.0) Eosinophils (%) (Auto) 3.5 % (0.0-7.0) Basophils (%) (Auto) 0.7 % (0.0-2.0) Neutrophils # (Auto) 3.5 10 ^3/uL (1.6-8.6) Lymphocytes # (Auto) 1.6 10 ^3/uL (0.4-5.4) Monocytes # (Auto) 0.5 10 ^3/uL (0-1.3) Eosinophils # (Auto) 0.2 10 ^3/uL (0-0.8) Basophils # (Auto) 0 10 ^3/uL (0-0.2) Nucleated Red Blood Cells 0.0 % Sodium Level 139 mmol/L (136-145) Potassium Level 4.1 mmol/L (3.5-5.1) Chloride Level 99 mmol/L (98-107) Carbon Dioxide Level 33 mmol/L (20-31) Anion Gap 7 (5-15) Blood Urea Nitrogen 6 mg/dL (9-23) Creatinine 0.75 mg/dL (0.700-1.30) Glomerular Filtration Rate Calc 106 mL/min (>90) BUN/Creatinine Ratio 8.0 (10.0-20.0) Serum Glucose 111 mg/dL (74-106) Calcium Level 9.2 mg/dL (8.7-10.4) Phosphorus Level 4.2 mg/dL (2.4-5.1) Magnesium Level 2.0 mg/dL (1.6-2.6) Total Bilirubin 0.4 mg/dL (0.2-1.0) Aspartate Amino Transferase (AST) 47 U/L (13-40) Alanine Aminotransferase (ALT) 40 U/L (7-40) Alkaline Phosphatase 74 U/L (46-116) Total Protein 7.2 g/dL (5.7-8.2) Albumin 3.9 g/dL (3.2-4.8) Vancomycin Level Trough 10.0 ug/mL (5-10) Triglycerides Level 80 mg/dL (< 150) Cholesterol Level 138 mg/dL (< 200) LDL Cholesterol 84 mg/dL (< 100) HDL Cholesterol 50 mg/dL (40-59) Blood Gas Specimen Type Arterial Blood Gas Sample Site Right radial Blood Gas Patient Temperature 37.0 Arterial Blood Date Drawn [id number] Arterial Blood pH 7.407 (7.350-7.450) Arterial Blood Partial Pressure CO2 43.7 mmHg (35.0-48.0) Arterial Blood Partial Pressure O2 65.0 mmHg (83.0-108.0) Arterial Blood HCO3 26.9 mmol/L (21.0-28.0) Arterial Blood Oxygen Saturation 91.2 % (94.0-98.0) Arterial Blood Base Excess 1.8 mmol/L (-2.0-3.0) Arterial Blood Oxyhemoglobin 89.9 % (94.0-98.0) Arterial Blood Carboxyhemoglobin 1.1 % (0.5-1.5) Arterial Blood Methemoglobin 0.3 % (0.0-1.5) Arterial Blood Deoxyhemoglobin 8.7 % (0.0-5.0) Justin Test Yes Blood Gas Total Hemoglobin 13.50 g/dL (13.5-17.5) Blood Gas Modality Room air FiO2 % 21.0 Test 06/08/25 08:05 06/08/25 07:58 06/08/25 07:12 06/08/25 00:47 HIV (1&2) Antibody Negative (Negative) Thyroid Stimulating Hormone (TSH) 0.85 uIU/mL (0.55-4.78) Hemoglobin A1c 5.9 % A1C (<5.7) Vitamin B12 Level 1159 pg/mL (211-911) Vitamin D 25-Hydroxy 26.0 ng/mL (30.0-100) Cortisol AM Sample 14.75 ug/dL (5.27-22.45) Lactic Acid Level 1.2 mmol/L (0.4-2.0) Troponin I High Sensitivity 4 ng/L (</=54) Test 06/08/25 00:01 06/07/25 21:53 06/07/25 21:52 Influenza Type A Antigen Negative (Negative) Influenza Type B Antigen Negative (Negative) SARS-CoV-2 Antigen (Rapid) Negative (NEGATIVE) Urine Color Yellow (Yellow) Urine Clarity Clear (Clear) Urine pH 5.5 (5.0-9.0) Urine Specific Sanderson 1.018 (1.001-1.035) Urine Protein Negative (Negative) Urine Ketones Negative (Negative) Urine Blood Negative /uL (Negative) Urine Nitrite Negative (Negative) Urine Bilirubin Negative (Negative) Urine Urobilinogen 4 mg/dL (Negative) Urine Leukocyte Esterase Negative /uL (Negative) Urine RBC 1 /hpf (0 - 3) Urine Microscopic WBC 3 /HPF (0-3) Urine Squamous Epithelial Cells Few /hpf (<5) Urine Bacteria Few /hpf (None Seen) Urine Glucose Normal mg/dL (Normal) Urine Opiates Screen Neg (NEGATIVE) Urine Fentanyl Screen Neg (NEGATIVE) Urine Barbiturates Screen Neg (NEGATIVE) Urine Phencyclidine Screen Neg (NEGATIVE) Urine Amphetamines Screen Pos (NEGATIVE) Urine Benzodiazepines Screen Neg (NEGATIVE) Urine Cocaine Screen Neg (NEGATIVE) Urine Cannabinoids Screen Neg (NEGATIVE) Prothrombin Time 10.6 sec (9.3-11.8) Prothrombin Time INR 1.00 (0.9-1.15) Activated Partial Thromboplast Time 26.9 SEC (24.5-34.5) D-Dimer, Quantitative 0.91 mg/L FEU (0.0-0.49) B-Type Natriuretic Peptide 28.05 pg/mL (0-100) Other Laboratory Tests 06/10/25 06:10 Brief Hx & Hospital Course: Patient is a 54-year-old male with past medical history of pulmonary coccidiomycosis with pneumonia, 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 The pain is described as sharp and constant, with severity up to 9-10/10, without radiation. He reports right lateral lower extremity swelling for 1 month, associated with pain rated 7-10/10. 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 Two days prior, he completed a long route from [place] to [place]. He reports taking an unknown stimulant pill given by a friend 5 days ago to prevent sleep while driving. After ingestion, he was unable to sleep for 2 days. Swelling and pain have been worsening. He denies fever but reports chronic discomfort in both legs. Lab workup revealed transaminitis, UDS positive for thiamine. D-dimer 0.91, CT angio No pulmonary embolism. 1.7 cm pleural-based posterior right upper lobe pulmonary nodule. Doppler study of the lower extremity negative for DVT. Patient was treated with a IV antibiotic cefepime and vancomycin for left leg cellulitis, blood culture no growth, MRSA screening negative, uterine culture no growth, sputum revealed few g positive cocci in pairs on Gram staining. Patient is being discharged with doxycycline 100 mg p.o. b.i.d. for 7 days. Patient was advised to follow up at AL clinic/PCP. Patient was also advised to follow up with the stitch bonding machine operator for further evaluation of lung nodules. Patient was hemodynamically stable on discharge. All questions answered. General: Lucid, afebrile, mucosae are moist Cardiovascular: Normal S1 and S2. No murmurs, gallops or rubs Respiratory: Normal ventilation mechanics. Clear lung sounds on auscultation Abdomen: Soft, nontender, no organomegaly, normal bowel sounds MSK/skin: Mobilizes 4 limbs. Skin is dry and warm. Bilateral erythema, left greater than right. Neurological: Oriented in 3 spheres. No motor no sensitive deficits. Pupils are isocoric and reactive Plan of care discussed with Dr. Betancourt Operations or Procedures [place] [id number] Ph: [phone] DIAGNOSTIC IMAGING Diagnostic Imaging Report : [id number] Signed PATIENT: RAMIRO MITCHELL DACCT: [id number] UNIT: [id number] : 1970 LOC: ER ROOM / BED: / AGE / SEX: 54 / M ADM STATUS: REG ER SERVICE 39 ORDERING PHYSICIAN: JANIA CURRY DO PROCEDURE(s): CXRP - CHEST PORTABLE REASON: fever, hypoxemia ORDER NUMBER(s): [id number], ACCESSION NUMBER(s): [id number] CHEST RADIOGRAPH INDICATION: fever, hypoxemia TECHNIQUE: Single frontal view of the chest was obtained. COMPARISON: XY CHEST PORTABLE on DOS: 03/22/25, XY CHEST TWO VIEWS ROUTINE on DOS: 08/24/24 FINDINGS: Mild pulmonary vascular congestion. No significant pleural effusion. No pneumothorax. Enlarged cardiomediastinal silhouette. IMPRESSION: Cardiomegaly with mild pulmonary vascular congestion. Superimposed infection is possible in the appropriate clinical setting. ATED BY: DEX MOULTON MD DICTATED DATE/TIME: 06/07/252236 SIGNED BY: DEX MOULTON MD SIGNED DATE/TIME: 06/07/252236 CC: [address] [id number] Ph: [phone] DIAGNOSTIC IMAGING Diagnostic Imaging Report : [id number] Signed PATIENT: RAMIRO MITCHELL DACCT: [id number] UNIT: [id number] : 1970 LOC: ER ROOM / BED: / AGE / SEX: 54 / M ADM STATUS: REG ER SERVICE 27 ORDERING PHYSICIAN: JANIA CURRY DO PROCEDURE(s): BLDVT - BiLat Lower DVT REASON: swelling ORDER NUMBER(s): [id number], ACCESSION NUMBER(s): [id number] Bilateral lower extremity venous duplex CLINICAL HISTORY: swelling COMPARISON: US BILAT LOWER DVT on DOS: 08/19/24 TECHNIQUE: Duplex Doppler evaluation of the deep venous systems of both lower extremities from the common femoral veins to the popliteal veins including color Doppler and spectral/pulsed waveform analysis was performed. FINDINGS: RIGHT SIDE: The common femoral vein demonstrates appropriate compressibility and waveform variability. There is compressibility/patency of the great saphenous vein at the proximal thigh. The femoral vein demonstrates appropriate compressibility and waveform variability. The deep femoral vein demonstrates appropriate compressibility and waveform variability. The popliteal vein demonstrates appropriate compressibility and waveform variability. There is normal compressibility at the tibioperoneal trunk. LEFT SIDE: The common femoral vein demonstrates appropriate compressibility and waveform variability. There is compressibility/patency of the great saphenous vein at the proximal thigh. The femoral vein demonstrates appropriate compressibility and waveform variability. The deep femoral vein demonstrates appropriate compressibility and waveform variability. The popliteal vein demonstrates appropriate compressibility and waveform variability. There is normal compressibility at the tibioperoneal trunk. Left inguinal lymph node measures 3.7 x 2.4 x 0.7 cm. IMPRESSION: 1. No right or left femoropopliteal venous thrombosis. 2. Enlarged left inguinal lymph node measuring 3.7 x 2.4 x 0.7 cm. ATED BY: JONATHAN RIZVI MD DICTATED DATE/TIME: 06/07/252304 SIGNED BY: JONATHAN RIZVI MD SIGNED DATE/TIME: 06/07/252304 CC: [place] [address] Ph: [phone] DIAGNOSTIC IMAGING Diagnostic Imaging Report : [id number] Signed PATIENT: RAMIRO MITCHELL DACCT: [id number] UNIT: [id number] : 1970 LOC: OVERFLOW ROOM / BED: 100ER / A AGE / SEX: 54 / M ADM STATUS: ADM IN SERVICE 1252 ORDERING PHYSICIAN: RASHAAD TOLENTINO RESIDENT PROCEDURE(s): CTACH - CT ANGIO CHEST CONTRAST REASON: r/o PE ORDER NUMBER(s): [id number], ACCESSION NUMBER(s): [id number] CTA Chest with intravenous contrast INDICATION: r/o PE COMPARISON: XY CHEST PORTABLE on DOS: 06/07/25, XY CHEST PORTABLE on DOS: 03/22/25, XY CHEST TWO VIEWS ROUTINE on DOS: 08/24/24, XY CHEST PORTABLE on DOS: 08/22/24, XY CHEST PORTABLE on DOS: 08/22/24 TECHNIQUE: Multidetector spiral CTA of the chest was performed of the chest with intravenous contrast. PULMONARY ANGIOGRAPHY PROTOCOL was utilized using a bolus- tracking technique centered on the main pulmonary artery. Axial, coronal and sagittal multiplanar and MIP reformats were performed. Radiation Dose : 1. Chest: CTDI volume is 29.6 mGy. Dose-length product is 2108.06 mGy*cm The dose indicators for CT are the volume Computed Tomography (CT) Dose Index (CTDIvol) and the Dose Length Product (DLP), and are measured in units of mGy and mGy-cm, respectively. These indicators are not patient dose, but values generated from the CT scanner acquisition factors. The report includes radiation exposure data for exposures received during this examination. FINDINGS: Pulmonary artery: No pulmonary embolism. Lower neck: Normal thyroid. Lungs: No focal consolidation, pleural effusion or pneumothorax. 1.7 cm pleural- based posterior right upper lobe pulmonary nodule. Heart/Vascular Structures: Normal heart size. No pericardial effusion. Lymph Nodes: No adenopathy Musculoskeletal: No acute osseous abnormality. Soft tissues: Normal. Upper abdomen: Limited portions of the upper abdomen are unremarkable. IMPRESSION: 1. No pulmonary embolism. 2. 1.7 cm pleural-based posterior right upper lobe pulmonary nodule. ATED BY: JONATHAN RIZVI MD DICTATED DATE/TIME: 06/08/25223 SIGNED BY: JONATHAN RIZVI MD SIGNED DATE/TIME: 06/08/25223 CC: [place] [address] Ph: [phone] DIAGNOSTIC IMAGING Diagnostic Imaging Report : [id number] Signed PATIENT: RAMIRO MITCHELL DACCT: [id number] UNIT: [id number] : 1970 LOC: [facility] ROOM / BED: [facility] / B AGE / SEX: 54 / M ADM STATUS: ADM IN SERVICE 1 ORDERING PHYSICIAN: PHILOMENA EUCEDA PROCEDURE(s): ECIDC - ECHO 2D MODE CARDIAC DOP REASON: chest pain ORDER NUMBER(s): [id number], ACCESSION NUMBER(s): [id number] APPROVED REPORT EXAM: LIMITED Two-dimensional and M-mode echocardiogram with Doppler and color Doppler. Blood Pressure: 10/54 mmHg INDICATION Chest Pain RISK FACTORS Obesity: Height: 5'9, Weight: 300 DIMENSIONS LVDd 5.0 (3.8-5.7cm) LA (2D) (1.9-4.0cm) Aortic Root 4.0 (2.0- 3.7cm) LVDs 3.4 (2.5-4.0cm) LA (MM) (1.9-4.0cm) Aortic Cusp Exc 2.2 (1.5- 2.0cm) EF (%) 55.0 (55-70%) Rt. Atrium (1.9-4.0cm) Asc. Aorta cm IVSd 1.1 (0.7-1.1cm) RV (D) (1.8-2.4cm) PWd 1.1 (0.7-1.1cm) Mitral Valve Mitral Mitral Stenosis E wave 0.72m/s MV Mean GR. mmHg A wave 0.72m/s MV Peak GR. mmHg E/A ratio 1.0 2D MVA cm2 DECEL Time 224ms PRESS 1/2 Time ms Aortic Valve Aortic Valve Aortic Stenosis V1 0.78m/s AO Mean GR. mmHg V2 1.14m/s AO Peak GR. 5mmHg LVOT Diameter 2.7 (1.8-2.4cm) Doppler AUGUST 3.92cm2 Pulmonic Valve V2 1.08m/s Tricuspid Valve TR Velocity 2.87m/s RVSP 33mmHg Conclusion LV EF IS 65% NORMAL VALVES NORMAL RV FUNCTION NO EFFUSION RVSP IS 33 MM OF HG AND IS NORMAL SIGNED BY: RENAN MARTINEZ MD SIGNED DATE/TIME: 06/10/25 0040 CC: Condition at Discharge: Stable Final Diagnosis/Problems List #Acute hypoxic respiratory failure secondary to pneumonia #Right upper lobe pulmonary nodule #Ruled out pulmonary embolism #Ruled out DVT #Rule out CHF #History of pulmonary coccidiomycosis pneumonia #Left lower leg cellulitis #Hyponatremia #Transaminitis #Substance abuse #Alcohol use disorder #Gigantism s/p a trans-sphenoidal surgery, pituitary removal #Morbid Obesity, BMI 44.0 kg/m2 Discharge Disposition: Home Discharge Instruct/Medications Diet: Cardiac 2g Na,low cholest Activity: No Restrictions, As Tolerated Follow Up/Referral: DC clinic PCP Follow up with the jet wiper for lung nodule. Endocrinology Medications: As above Scheduled Doxycycline (Monohydrate) (Doxycycline), 100 MG PO BID Multiple Vitamin (Multivitamins), 1 TAB PO DAILY, (Reported) Discharge Statement: "Patient was advised to return to the ER or call 911 if any headaches, dizziness, shortness of breath, chest pain, abdominal pain, bleeding, fevers, or worsening of medical condition. Patient was counseled about treatment plan, medications, possible side effects, patientverbalized understanding. All questions were answered to the best of my ability. This discharge took greater then 30 minutes in planning, reviewing documentation, counseling the patient, and discussing with other team members." ASSESSMENT ASSESSMENT Assessment Left leg cellulitis Visit Coding STANDARD RES Billing Provider: THU BETANCOURT MD Date of Service if different f: Jun 10, 2025 Common Visit Codes: 66382-SJZ/OBS DISCH DAY >30min JEANNETTE MADRID RESIDENT Jun 10, 2025 15:11
== END 2025-06-10 16:28 | disposition home or self-care (01) | DRG 133 ==
LOC: ER 21:17 → OVERFLOW 23:31 → WEST WING 06-08 16:59
PROVIDERS: ADMIT Internal Medicine Geriatric Medicine; ATTEND Internal Medicine Geriatric Medicine
DX: J96.01 Acute respiratory failure with hypoxia (principal); J15.69 Pneumonia due to other Gram-negative bacteria; J15.9 Unspecified bacterial pneumonia; L03.116 Cellulitis of left lower limb; E87.1 Hypo-osmolality and hyponatremia; N39.0 Urinary tract infection, site not specified; I50.9 Heart failure, unspecified; Z68.41 Body mass index [BMI] 40.0-44.9, adult; F15.10 Other stimulant abuse, uncomplicated; Z20.822 Contact with and (suspected) exposure to COVID-19; E66.01 Morbid (severe) obesity due to excess calories; F17.200 Nicotine dependence, unspecified, uncomplicated; R74.01 Elevation of levels of liver transaminase levels; E22.0 Acromegaly and pituitary gigantism
CPT/HCPCS: 36415; 36600; 71045; 71275; 80048; 80053; 80061; 80202; 80307; 81001; 82306; 82533; 82607; 82805; 83036; 83605; 83735; 83880; 84100; 84443; 84484; 85025; 85379; 85610; 85730; 86635; 86703; 87040; 87070; 87081; 87086; 87205; 87426; 87804; 93306; 93970; 94640; 96365; G0378